=== PATIENT | male | born 1980 | race Caucasian/White ===

== ENCOUNTER 2016-05-02 01:02 | Inpatient (IN) | payer MEDICAID ==
[~2016-05-02] VITALS: Ht 172.7 cm; Wt 75.5 kg
[~2016-05-02 01:02] MED LIST: ASPI81TA3 PO; ATOR80TA75 PO; CARV12.579 PO
--- NOTE | 2016-05-02 02:32 | ERA ---
ER Documentation Chief Complaint Date/Time DATE: 05/02/16 TIME: 02:32 Chief Complaint cp started around 10pm,coughx4 days,sob,has a defib on L upper chest HPI The patient is a 36-year-old male, presenting to the ER because of left-sided chest pain that began about 10 PM, dyspnea for 1 day, dizziness for the last 3 days intermittently and intermittent cough for the last 4 days. He had similar chest pain and dizziness and dyspnea previously. He denies fever, chills, neck pain, chest pain with exertion or vomiting, diaphoresis. He denies abdominal pain, vomiting, diarrhea, dysuria. He smokes, denies drinking, has history of substance abuse Past medical history: Dyslipidemia, history of CHF with low EF of 15% Past surgical history: AICD, congenital heart disease repair ROS All systems reviewed and are negative except as per history of present illness. Medications Home Meds Reported Medications Carvedilol* (Carvedilol*) 12.5 Mg Tablet, 12.5 MG PO BID, #60 TAB 10/05/15 Atorvastatin* (Atorvastatin*) 80 Mg Tablet, 80 MG PO QHS, #30 TAB 10/05/15 Aspirin* (Aspirin* Chew) 81 Mg Tab.chew, 81 MG PO DAILY, TAB.CHEW 10/05/15 Allergies Allergies: Coded Allergies: No Known Allergy (Unverified , 10/05/15) PMhx/Soc History of Surgery: Yes (Difibulator placement (previous repor 2014), Open Heart Sx 1991) Anesthesia Reaction: No Hx Neurological Disorder: No Hx Respiratory Disorders: No Hx Cardiac Disorders: Yes ("hole in heart" CHF, Heart Difibulator) Hx Psychiatric Problems: No Hx Miscellaneous Medical Probl: Yes (Hemorrhoids) Hx Alcohol Use: No Hx Substance Use: Yes (per previous report Meth, Marijuana) Hx Tobacco Use: No Smoking Status: Never smoker Physical Exam Vitals Vital Signs Date Time Temp Pulse Resp B/P Pulse Ox O2 Delivery O2 Flow Rate FiO2 05/02/16 05:00 96.7 102 28 140/111 98 Room Air 4.0 05/02/16 02:56 99 4.0 05/02/16 02:53 104 22 99 Nasal Cannula 4.0 05/02/16 02:20 96.7 103 28 136/105 98 Room Air 05/02/16 01:04 96.7 104 28 126/88 96 Physical Exam Const: No acute distress. Head: Atraumatic. Eyes: Normal Conjunctiva. ENT: Normal External Ears, Nose and Mouth. Neck: Full range of motion. No meningismus. Resp: Minimal bilateral expiratory wheezes, scattered rhonchi Cardio: Regular rate and rhythm, no murmurs. Abd: Soft, non distended, normal bowel sounds, non tender. Skin: No petechiae or rashes. Back: No midline or flank tenderness. Ext: No cyanosis, or edema. Neur: Awake and alert. No focal deficit Psych: Normal Mood and Affect. Result Diagram: 05/02/1622405/02/16224 Results 24 hrs Laboratory Tests Test 05/02/16 02:25 05/02/16 05:20 05/02/16 05:24 Activated Partial Thromboplast Time 32.3Sec Alanine Aminotransferase (ALT/SGPT) 80IU/L Albumin 3.3g/dl Albumin/Globulin Ratio 1.00 Alkaline Phosphatase 107IU/L Anion Gap 16 Aspartate Amino Transf (AST/SGOT) 72IU/L B-Type Natriuretic Peptide 5850PG/ML Basophils # 0.110^3/ul Basophils % 0.8% Blood Morphology Comment Blood Urea Nitrogen 31mg/dl Calcium Level 9.6mg/dl Carbon Dioxide Level 26mmol/L Chloride Level 106mmol/L Creatinine 0.97mg/dl Direct Bilirubin 0.00mg/dl Eosinophils # 0.210^3/ul Eosinophils % 2.0% Ethyl Alcohol Level < 10.0mg/dl Globulin 3.30g/dl Glucose Level 78mg/dl Hematocrit 49.6% Hemoglobin 16.9g/dl INR International Normalized Ratio 1.01 Indirect Bilirubin 0.2mg/dl Lactic Acid Level 2.2mmol/L Lymphocytes # 3.010^3/ul Lymphocytes % 34.7% Mean Corpuscular Hemoglobin 30.8pg Mean Corpuscular Hemoglobin Concent 34.1g/dl Mean Corpuscular Volume 90.3fl Mean Platelet Volume 9.1fl Monocytes # 0.810^3/ul Monocytes % 8.9% Neutrophils # 4.710^3/ul Neutrophils % 53.6% Nucleated Red Blood Cells # 0.010^3/ul Nucleated Red Blood Cells % 0.0/100WBC Platelet Count 11003^3/UL Potassium Level 4.3mmol/L Prothrombin Time 13.3Sec Prothrombin Time Ratio 1.0 Red Blood Count 5.4910^6/ul Red Cell Distribution Width 14.9% Sodium Level 144mmol/L Total Bilirubin 0.2mg/dl Total Protein 6.6g/dl Troponin I 0.036ng/ml White Blood Count 8.710^3/ul Urine Bilirubin NEGATIVE Urine Clarity CLEAR Urine Color LT. YELLOW Urine Glucose NEGATIVE% Urine Hemoglobin 1+ Urine Ketones NEGATIVE Urine Leukocyte Esterase NEGATIVE Urine Microscopic RBC 2-5/HPF Urine Microscopic WBC 0-2/HPF Urine Mucus FEW Urine Nitrite NEGATIVE Urine Specific [place] 1.015 Urine Total Protein 1+ Urine Urobilinogen 0.2 E.U./dL Urine pH 6.0 Bedside Urine Blood 1+ Bedside Urine Glucose (UA) Negative Bedside Urine Ketones (LAB) Negative Bedside Urine Leukocyte Esterase (L Negative Bedside Urine Nitrite (LAB) Negative Bedside Urine Protein (LAB) 2+ Bedside Urine pH (LAB) 6.0 Current Medications Medications (Trade) Dose Ordered Sig/Gayle Route PRN Reason Start Time Stop Time Status Last Admin Dose Admin Levalbuterol (Xopenex Neb) 1.25 mg ONCE ONCE HHN 05/02/16 03:00 05/02/16 03:01 DC 05/02/16 02:50 Ipratropium [place] (Atrovent 0.02% (Neb)) 0.5 mg ONCE ONCE HHN 05/02/16 03:00 05/02/16 03:01 DC 05/02/16 02:49 Aspirin (Aspirin) 325 mg ONCE ONCE PO 05/02/16 03:00 05/02/16 03:01 DC 05/02/16 03:14 Nitroglycerin (Nitroglycerin 2% Oint) 1 inch ONCE ONCE TD 05/02/16 03:00 05/02/16 03:01 DC 05/02/16 03:14 Furosemide (Lasix) 40 mg ONCE ONCE IV 05/02/16 05:00 05/02/16 05:01 DC 05/02/16 04:47 IV Flush (NS 3 ml) 3 ml PER PROTOCOL IV 05/02/16 05:30 Lorazepam (Ativan) 0.5 mg Q6H PRN IV ANXIETY 05/02/16 05:30 Ondansetron HCl (Zofran Inj) 4 mg Q6H PRN IV NAUSEA AND/OR VOMITING 05/02/16 05:30 Aspirin (Aspirin) 81 mg DAILY PO 05/02/16 09:00 05/02/16 09:00 DC Furosemide (Lasix) 40 mg BID DIURETICS IV 05/02/16 18:00 Nitroglycerin (Nitroglycerin (Sl Tab) 0.4 Mg) 1 tab Q5M PRN SL CHEST PAIN 05/02/16 05:30 Acetaminophen (Tylenol Tab) 650 mg Q6H PRN PO PAIN LEVEL 1-3 OR FEVER 05/02/16 05:30 Morphine Sulfate (morphine) 2 mg Q4H PRN IV PAIN LEVEL 7-10 05/02/16 05:30 Docusate Sodium (Colace) 100 mg Q12H PRN PO CONSTIPATION 05/02/16 05:30 Famotidine (Pepcid) 20 mg Q12 PO 05/02/16 09:00 Enoxaparin Sodium (Lovenox) 40 mg DAILY SC 05/02/16 09:00 Aspirin (Aspirin) 81 mg DAILY PO 05/02/16 09:00 Atorvastatin Calcium (Lipitor) 80 mg QHS PO 05/02/16 21:00 UNV Carvedilol (Coreg) 12.5 mg BID PO 05/02/16 09:00 UNV Albuterol/ Ipratropium (Duoneb) 3 ml Q2H RESP THERAPY PRN HHN SHORTNESS OF BREATH 05/02/16 05:30 Procedures/MDM EKG: Read by emergency physician Rate/Rhythm: Sinus tachycardia 107 beats per min QRS, ST, T-waves: No ST elevation, no T wave inversion, right bundle branch block, left anterior fascicular block, LVH, lateral T-wave Impression: Abnormal EKG [place] [id number] Radiology Main Line: [phone] DIAGNOSTIC IMAGING REPORT 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 TECHNIQUE: A single frontal AP view of the chest was performed portably. The images were reviewed on a PACS workstation. COMPARISON: Chest x-ray January 15, 2016. FINDINGS: There is a left-sided AICD device. The patient has had a prior median sternotomy. The cardiomediastinal silhouette is moderately enlarged but without significant interval change. There is seau-rd-jwnclyof pulmonary vascular congestion. There is no evidence for focal consolidation. There is no evidence for pneumothorax. IMPRESSION: 1. Left-sided AICD device. 2. Status post median sternotomy. 3. Cardiomegaly. 4. Mzwt-cs-warzyofx pulmonary vascular congestion. .Ishan Uriarte MD, Date Time Electronically viewed and signed by .Ishan Uriarte MD, MD on 05/02/2016 05:22 .M/ CC: EKNIA MAYA MD MEDICAL MAKING DECISION: The patient is a 36-year-old male, presenting with acute CHF exacerbation, acute chest pain, acute elevated lactic acid level of unclear significance. I do not suspect severe sepsis; he does not have fever, nor leukocytosis; he has negative chest x-ray and negative urinalysis. Antibiotics were not given. He was treated with Xopenex 1.25 mg and Atrovent 0.5 mg for wheezing, aspirin 325 mg p.o. and 1 inch of nitroglycerin ointment to chest wall for acute chest pain and Lasix 40 mg IV for acute CHF with good response. The differential diagnoses for acute dyspnea considered include but are not limited to asthma, COPD, pneumonia, pulmonary embolus, pleural effusion , congestive heart failure. The differential diagnoses for acute chest considered include but are not limited to acute coronary syndrome, acute myocardial infarction, pericarditis, pulmonary embolism, aortic dissection, pneumonia, pleural effusion, pneumothorax, GERD, chest wall pain. Departure Diagnosis: Primary Impression: CHF (congestive heart failure) Additional Impressions: Chest pain Transaminitis SIRS (systemic inflammatory response syndrome) Condition: Stable Comments I discussed the findings with the patient. I discussed the patient with the on- call hospitalist Dr. Christensen. who was made aware of the lab, the treatment, the patient condition. The patient is admitted to telemetry at 4:50 AM KENIA MAYA MD May 02, 2016 02:32
[2016-05-02] MEDS ORDERED: ASPIRIN 325 MG TAB PO ONE (03:00)
[2016-05-02] MEDS ORDERED: IPRATROPIUM (NEB) 0.5 MG/2.5 ML AMP HHN ONE (03:00)
[2016-05-02] MEDS ORDERED: NITROGLYCERIN 2% 1 GM OINT PKT TD ONE (03:00)
[2016-05-02] MEDS ORDERED: LEVALBUTEROL (NEB) 1.25 MG/0.5 ML AMP HHN ONE (03:00)
[2016-05-02 04:01] LABS: BASOPHIL # 0.1 10^3/ul (0.0-0.1); BASOPHILS % 0.8 % (0.0-2.0); EOSINOPHILS # 0.2 10^3/ul (0.0-0.5); HEMATOCRIT 49.6 % (42.0-52.0); HEMOGLOBIN 16.9 g/dl (14.0-18.0); LYMPHOCYTES % 34.7 % (15.0-51.0); MEAN CORPUSCULAR HEMOGLOBIN 30.8 pg (29.0-33.0); MEAN CORPUSCULAR HGB CONC 34.1 g/dl (32.0-37.0); MEAN CORPUSCULAR VOLUME 90.3 fl (82.0-101.0); MEAN PLATELET VOLUME 9.1 fl (7.4-10.4); MONOCYTE # 0.8 10^3/ul (0.3-0.9); MONOCYTES % 8.9 % (0.0-11.0); NEUTROPHIL # 4.7 10^3/ul (1.6-7.5); NEUTROPHILS % 53.6 % (39.0-77.0); PLATELET COUNT 229 10^3/UL (140-440); RED BLOOD COUNT 5.49 10^6/ul (4.70-6.10); RED CELL DISTRIBUTION WIDTH 14.9 % (11.5-14.5); UNCORRECTED WBC 8.7 10^3/ul (4.8-10.8); WHITE BLOOD COUNT 8.7 10^3/ul (4.8-10.8)
[2016-05-02 04:07] LABS: CONDITION 1; LH ANALYZER COMMENTS 1
[2016-05-02 04:09] LABS: INR 1.01; PROTIME 13.3 Sec (12.2-14.2)
[2016-05-02 04:10] LABS: PARTIAL THROMBOPLASTIN TIME 32.3 Sec (25.0-35.0)
[2016-05-02 04:15] LABS: ALBUMIN 3.3 g/dl (3.3-4.9); CHLORIDE 106 mmol/L (97-110); SODIUM 144 mmol/L (135-144)
[2016-05-02 04:16] LABS: POTASSIUM 4.3 mmol/L (3.5-5.1)
[2016-05-02 04:17] LABS: CREATININE 0.97 mg/dl (0.61-1.24)
[2016-05-02 04:18] LABS: ALANINE AMINOTRANSFERASE 80 IU/L (13-69); ALKALINE PHOSPHATASE 107 IU/L (42-121); ANION GAP 16 (8-16); ASPARTATE AMINO TRANSFERASE 72 IU/L (15-46); BILIRUBIN,INDIRECT 0.2 mg/dl (0-1.1); BILIRUBIN,TOTAL 0.2 mg/dl (0.2-1.3); BLOOD UREA NITROGEN 31 mg/dl (7-20); CALCIUM 9.6 mg/dl (8.4-10.2); CARBON DIOXIDE 26 mmol/L (21-31); GLUCOSE 78 mg/dl (70-220); TOTAL PROTEIN 6.6 g/dl (6.1-8.1)
[2016-05-02 04:26] LABS: B-TYPE NATRIURETIC PEPTIDE 5850 PG/ML (0-125)
[2016-05-02 04:30] LABS: TROPONIN-I 0.036 ng/ml (0.00-0.12)
[2016-05-02 04:36] LABS: ETHANOL < 10.0 mg/dl
[2016-05-02] MEDS ORDERED: FUROSEMIDE 40 MG INJ IV ONE (05:00)
--- NOTE | 2016-05-02 05:20 | HP ---
Date/Time of Note Date/Time of Note DATE: 05/02/16 TIME: 05:09 Assessment/Plan VTE Prophylaxis VTE Prophylaxis Intervention: LMWH Assessment/Plan Assessment/Plan 36 yo male with a known history of Methamphetamine drug abuse, Cardiomyopathy with low EF 15% s/p AICD who complains of chest pain and shortness of breath 2 days duration. 1. Shortness of breath/Chest pain - 2/2 to CHF exac with ACS component - will admit the patient to telemetry, cycle cardiac markers, consult cardio, check TSH /Mag levels, fall precautions, obtain 2D-ECHO, diuresis, strict I/O's, continue with coreg/BB/aspirin/statin - ?add spironolactone - defer to cardio 2. CHF exacerbation - acute on chronic both diastolic and systolic dysfunction with severe cardiomyopathy - see #1 3. Transaminitis - 2/2 RHF - monitor trend 4. GI ppx - pepcid 5. DVT ppx - lovenox answered all of his questions. as per clinical course. this history and physical took greater then 45 minutes to complete HPI/ROS Admit Date/Time Admit Date/Time 05/02/2016, 5:10 am Hx of Present Illness 36 yo male with a known history of Methamphetamine drug abuse, Cardiomyopathy with low EF 15% s/p AICD who complains of chest pain and shortness of breath 2 days duration. 2 days ago, he admits to using methamphetamine, and since then he has been having substernal chest pain. The pain is non-radiating, worsening in nature, 10/10 in intensity, pressure like, no alleviating factors, associated with shortness of breath. He also complains of dizziness, headaches, fevers/chills, and generalized malaise, with nausea and vomiting 2 episodes NBNB in nature. Denies any loss of consciousness, urinary/bowel irregularities, constipation/diarrhea or other constitutional symptoms. ED course: lasix, aspirin and breathing treatments ECHO: 05/24/2015 Conclusions 1. Moderate concentric left ventricular hypertrophy. Mild enlargement of left ventricle cavity. Severe global left ventricular systolic dysfunction. Ejection fraction is visually estimated at 15 %. Tissue Doppler/Mitral Doppler indices are consistent with restrictive physiology with markedly elevated left atrial pressure (Stage III-IV diastolic dysfunction). 2. Mitral valve leaflets appear mildly thickened. Mild mitral annular calcification. Mild mitral valve regurgitation. 3. Calcified Aortic cusps appear mildly calcified. No aortic regurgitation. 4. Normal appearance and function of the tricuspid valve with trace physiologic regurgitation. Normal right ventricular systolic pressure. Estimated peak PA systolic pressure 18 mmHg. ROS 14 point review of systems completed, please refer to HPI for any positive findings PMH/Family/Social Past Medical History Medical History: congestive heart failure, coronary artery disease, hypertension Past Surgical History s/p AICD Past Surgical Hx: other Family History Significant Family History: no pertinent family hx Social History Alcohol Use: none Smoking Status: Never smoker Drug Use: other (methamphetamine) Exam/Review of Systems Vital Signs Vitals Vital Signs Date Time Temp Pulse Resp B/P Pulse Ox O2 Delivery O2 Flow Rate FiO2 05/02/16 02:56 99 4.0 05/02/16 02:53 104 22 Nasal Cannula 05/02/16 02:20 96.7 136/105 Exam Exam Gen Mariam: moderate respiratory distress, AAOx4 HEENT: NC/AT, PERRLA, EOMI, no pharyngeal erythema, no tonsillar exudates, no lymphadenopathy, no JVD, no carotid bruits NECK: supple, no thyromegaly THORAX: symmetrical, no obvious deformities CV: S1S2, tachycardiac, no M/G/R Lungs: coarse breath sounds throughout all lungs bhatia, with end expiratory wheezing, and bibasilar crackles, increased work of breathing Abd: soft, NT/ND, +BS, no rebound, no guarding, neg HSM EXT: trace lower extremity edema, no ecchymosis, + clubbing, FROM Neuro: CN II-XII grossly intact, no focal deficits Psych: anxious Skin: cool and clammy Labs Result Diagram: 05/02/1622405/02/16224 GABBY YUNG MD May 02, 2016 05:20
--- NOTE | 2016-05-02 05:23 | RADRPT ---
PROCEDURE: CHEST - 1 VIEW CLINICAL INDICATION: 36-year-old male with shortness of breath. TECHNIQUE: A single frontal AP view of the chest was performed portably. The images were reviewed on a PACS workstation. COMPARISON: Chest x-ray January 15, 2016. FINDINGS: There is a left-sided AICD device. The patient has had a prior median sternotomy. The cardiomedias tinal silhouette is moderately enlarged but without significant interval change. There is mild-to-m oderate pulmonary vascular congestion. There is no evidence for focal consolidation. There is no tia dence for pneumothorax. IMPRESSION: 1. Left-sided AICD device. 2. Status post median sternotomy. 3. Cardiomegaly. 4. Gaxl-nb-kubtxdif pulmonary vascular congestion. .Ishan Uriarte MD, Date Time Electronically viewed and signed by .Ishan Uriarte MD, on 05/02/2016 05:22 .M/
[2016-05-02 05:25] LABS: URINE BLOOD (Dip) POC 1+ (NEGATIVE)
[2016-05-02] MEDS ORDERED: NITROGLYCERIN (SL) 0.4 MG TAB SL PRN (05:30)
[2016-05-02] MEDS ORDERED: ACETAMINOPHEN 325 MG TAB PO PRN (05:30)
[2016-05-02] MEDS ORDERED: NACL 0.9% 3 ML SYG IV SCH (05:30)
[2016-05-02] MEDS ORDERED: ONDANSETRON 4 MG INJ IV PRN (05:30)
[2016-05-02] MEDS ORDERED: DOCUSATE SODIUM 100 MG CAP PO PRN (05:30)
[2016-05-02] MEDS ORDERED: morphine 2 MG INJ IV PRN (05:30)
[2016-05-02 05:36] LABS: ADD UMIC YES; URINE BILIRUBIN (Dip) NEGATIVE (NEGATIVE); URINE BLOOD (Dip) 1+ (NEGATIVE); URINE COLOR LT. YELLOW (YELLOW); URINE GLUCOSE (Dip) NEGATIVE (NEGATIVE); URINE KETONES (Dip) NEGATIVE (NEGATIVE); URINE LEUKOCYTE ESTERASE (Dip) NEGATIVE (NEGATIVE); URINE NITRITE (Dip) NEGATIVE (NEGATIVE); URINE TOTAL PROTEIN (Dip) 1+ (NEGATIVE); URINE UROBILINOGEN (Dip) 0.2 E.U./dL (0.1-1.0)
[2016-05-02 05:49] LABS: MUCUS,URINE FEW
[2016-05-02 06:30] LABS: MAGNESIUM 1.5 mg/dl (1.7-2.5)
[2016-05-02 06:31] LABS: CHOL/HDL RATIO 3.8 RATIO
[2016-05-02 06:39] LABS: CK-MB 1.61 ng/ml (0.0-2.4); TROPONIN-I 0.031 ng/ml (0.00-0.12)
[2016-05-02 07:00] LABS: THYROID STIMULATING HORMONE 7.7 MIU/L (0.465-4.680)
[2016-05-02] MEDS: ASPIRIN 81 MG TAB PO SCH (08:52)
[2016-05-02] MEDS: ENOXAPARIN 40 MG/0.4 ML SYG SC SCH (08:52)
[2016-05-02] MEDS: FAMOTIDINE 20 MG TAB PO SCH ×2 (08:52→22:04)
[2016-05-02] MEDS ORDERED: ASPIRIN 81 MG TAB PO SCH (09:00)
[2016-05-02] MEDS: FUROSEMIDE 40 MG INJ IV SCH (09:02)
[2016-05-02 09:04] LABS: BARBITURATES NEGATIVE (NEGATIVE); BENZODIAZEPINES NEGATIVE (NEGATIVE); CANNABINOIDS POSITIVE (NEGATIVE); COCAINE NEGATIVE (NEGATIVE); OPIATES NEGATIVE (NEGATIVE)
[2016-05-02 12:11] LABS: TROPONIN-I 0.026 ng/ml (0.00-0.12)
[2016-05-02 12:30] LABS: CK-MB 1.61 ng/ml (0.0-2.4)
[2016-05-02] MEDS: ALBUTEROL/IPRATROPIUM (NEB) 3 ML AMP HHN PRN (17:01)
[2016-05-02 17:30] VITALS: TEMP 98.3
[2016-05-02 17:45] VITALS: BP 127/89; PULSE 103; RESP 18; Ht 172.7 cm; Wt 75.5 kg
[2016-05-02 20:00] VITALS: BP 105/70; RESP 15
[2016-05-02 20:36] VITALS: PULSE 105
[2016-05-02] MEDS: ATORVASTATIN 80 MG TAB PO SCH (22:04)
[2016-05-02] MEDS: LORAZEPAM 2 MG INJ IV PRN (22:10)
[2016-05-03] VITALS (12 sets, daily range): BP systolic 92–120; BP diastolic 63–82; PULSE 90–111; RESP 15–20
[2016-05-03] MEDS: ALBUTEROL/IPRATROPIUM (NEB) 3 ML AMP HHN PRN (00:49)
[2016-05-03 05:58] LABS: POTASSIUM 3.8 mmol/L (3.5-5.1)
[2016-05-03 06:00] LABS: BASOPHIL # 0.1 10^3/ul (0.0-0.1); BASOPHILS % 0.6 % (0.0-2.0); EOSINOPHILS # 0.1 10^3/ul (0.0-0.5); EOSINOPHILS % 0.8 % (0.0-7.0); HEMATOCRIT 52.6 % (42.0-52.0); HEMOGLOBIN 17.7 g/dl (14.0-18.0); LYMPHOCYTES # 2.7 10^3/ul (0.8-2.9); LYMPHOCYTES % 22.5 % (15.0-51.0); MEAN CORPUSCULAR HEMOGLOBIN 30.4 pg (29.0-33.0); MEAN CORPUSCULAR HGB CONC 33.6 g/dl (32.0-37.0); MEAN CORPUSCULAR VOLUME 90.5 fl (82.0-101.0); MEAN PLATELET VOLUME 8.9 fl (7.4-10.4); MONOCYTE # 0.7 10^3/ul (0.3-0.9); MONOCYTES % 5.5 % (0.0-11.0); NEUTROPHIL # 8.4 10^3/ul (1.6-7.5); NEUTROPHILS % 70.6 % (39.0-77.0); PLATELET COUNT 216 10^3/UL (140-440); RED BLOOD COUNT 5.82 10^6/ul (4.70-6.10); RED CELL DISTRIBUTION WIDTH 14.1 % (11.5-14.5); UNCORRECTED WBC 11.9 10^3/ul (4.8-10.8); WHITE BLOOD COUNT 11.9 10^3/ul (4.8-10.8)
[2016-05-03 06:01] LABS: CALCIUM 9.2 mg/dl (8.4-10.2); CREATININE 0.87 mg/dl (0.61-1.24)
[2016-05-03] MEDS: FUROSEMIDE 40 MG INJ IV SCH ×2 (06:34→17:25)
[2016-05-03 06:52] LABS: CONDITION 1
--- NOTE | 2016-05-03 08:23 | PN ---
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 There does not appear to be any evidence of an acute coronary syndrome at this admission. However he is beta blocked which is appropriate and in the past for his heart failure related attempted to used amparo inhibitors which even lisinopril 5 mg they cause hypotension. We will try and go around this by continuing the beta blockade using isosorbide mononitrate and hydralazine (2) CHF (congestive heart failure) Status: Acute Comment: Patient's and significant heart failure at this time with an audible S3. Continue diuresis. As he is unable to tolerate the AMPARO inhibitors based on prior notes in the chart is from prior admissions his isosorbide mononitrate with hydralazine along with his carvedilol. In addition Spironolactone to help with the volume status. At this time he is improving but is not near ready for discharge Qualifiers: Congestive heart failure type: systolic Congestive heart failure chronicity : acute on chronic Qualified Code: I50.23 - Acute on chronic systolic congestive heart failure (3) Shortness of breath Status: Acute Comment: Due to CHF Assessment/Plan Continued crystal meth abuse.-We will try and refer him once again for rehab although this is been done a number of times in the past. We can remain hopeful Subjective 24 Hr Interval Summary Free Text/Dictation Patient complains of shortness of breath Constitutional: no complaints Respiratory: shortness of breath Cardiovascular: orthopenea, paroxysmal nocturnal dyspnea Gastrointestinal: no complaints Genitourinary: no complaints Exam/Review of Systems Vital Signs Vitals Vital Signs Date Time Temp Pulse Resp B/P Pulse Ox O2 Delivery O2 Flow Rate FiO2 05/03/16 07:28 97.9 100 19 119/75 98 05/03/16 04:00 Nasal Cannula 3.0 Intake and Output 05/02/16 05/02/16 05/03/16 15:00 23:00 07:00 Intake Total 500 ml 400 ml Output Total 1150 ml 700 ml 850 ml Balance -1150 ml -200 ml -450 ml Exam Patient reports PND and orthopnea over Constitutional: alert, oriented Neck: non-tender, supple Respiratory: clear to auscultation, normal air movement Cardiovascular: S3, regular rate and rhythm Gastrointestinal: nl liver, spleen, non-tender, soft Results Result Diagram: 05/03/1620 05/03/16 0520 Results 24 hrs Laboratory Tests Test 05/02/16 09:26 05/02/16 11:26 05/03/16 05:20 Lactic Acid Level 1.1 Creatine Kinase 37 Creatine Kinase Index 4.4 Creatinine Kinase MB (Mass) 1.61 Troponin I 0.026 Anion Gap 16 Basophils # 0.1 Basophils % 0.6 Blood Urea Nitrogen 31 H Calcium Level 9.2 Carbon Dioxide Level 26 Chloride Level 100 Creatinine 0.87 Eosinophils # 0.1 Eosinophils % 0.8 Glucose Level 105 Hematocrit 52.6 H Hemoglobin 17.7 Lymphocytes # 2.7 Lymphocytes % 22.5 Mean Corpuscular Hemoglobin 30.4 Mean Corpuscular Hemoglobin Concent 33.6 Mean Corpuscular Volume 90.5 Mean Platelet Volume 8.9 Monocytes # 0.7 Monocytes % 5.5 Neutrophils # 8.4 H Neutrophils % 70.6 Nucleated Red Blood Cells # 0.0 Nucleated Red Blood Cells % 0.0 Platelet Count 216 Potassium Level 3.8 Red Blood Count 5.82 Red Cell Distribution Width 14.1 Sodium Level 138 White Blood Count 11.9 #H Medications Medications Current Medications Lorazepam (Ativan) 0.5 mg Q6H PRN IV ANXIETY Last administered on 05/02/16t 22: 10; Admin Dose 0.5 MG; Start 05/02/16 at 05:30 Ondansetron HCl (Zofran Inj) 4 mg Q6H PRN IV NAUSEA AND/OR VOMITING; Start at 05:30 Nitroglycerin (Nitroglycerin (Sl Tab) 0.4 Mg) 1 tab Q5M PRN SL CHEST PAIN; Start 05/02/16 at 05:30 Acetaminophen (Tylenol Tab) 650 mg Q6H PRN PO PAIN LEVEL 1-3 OR FEVER; Start at 05:30 Morphine Sulfate (morphine) 2 mg Q4H PRN IV PAIN LEVEL 7-10; Start 05/02/16 at 05:30 Docusate Sodium (Colace) 100 mg Q12H PRN PO CONSTIPATION; Start 05/02/16 at 05: 30 Famotidine (Pepcid) 20 mg Q12 PO Last administered on 05/02/16 22:04; Admin Dose 20 MG; Start 05/02/16 at 09:00 Enoxaparin Sodium (Lovenox) 40 mg DAILY SC Last administered on 05/02/16 08:52 ; Admin Dose 40 MG; Start 05/02/16 at 09:00 Aspirin (Aspirin) 81 mg DAILY PO Last administered on 05/02/16 08:52; Admin Dose 81 MG; Start 05/02/16 at 09:00 Atorvastatin Calcium (Lipitor) 80 mg QHS PO Last administered on 05/02/16 22: 04; Admin Dose 80 MG; Start 05/02/16 at 21:00 Carvedilol (Coreg) 12.5 mg BID PO Last administered on 05/02/16 22:04; Admin Dose 12.5 MG; Start 05/02/16 at 09:00 Influenza Virus Vaccine (Fluzone) 0.5 ml ONCE ONCE IM* ; Start 05/03/16 at 09:00 ; Stop 05/03/16 at 09:01 RITA FERGUSON MD May 03, 2016 08:23
[2016-05-03] MEDS: SPIRONOLACTONE 25 MG TAB PO SCH (08:56)
[2016-05-03] MEDS: ASPIRIN 81 MG TAB PO SCH (08:57)
[2016-05-03] MEDS: FAMOTIDINE 20 MG TAB PO SCH ×2 (08:57→20:33)
[2016-05-03] MEDS: ENOXAPARIN 40 MG/0.4 ML SYG SC SCH (08:58)
[2016-05-03] MEDS ORDERED: INFLUENZA VIRUS VACCINE 0.5 ML SYG IM* ONE (09:00)
[2016-05-03] MEDS: ISOSORBIDE MONONITRATE 20 MG TAB PO SCH (12:49)
[2016-05-03] MEDS: LORAZEPAM 2 MG INJ IV PRN (20:32)
[2016-05-03] MEDS: ATORVASTATIN 80 MG TAB PO SCH (20:32)
[2016-05-03] MEDS: DIPHENHYDRAMINE 25 MG CAP PO PRN (23:31)
[2016-05-04] VITALS (13 sets, daily range): BP systolic 109–121; BP diastolic 59–80; PULSE 87–100; RESP 16–20
[2016-05-04] MEDS: FUROSEMIDE 40 MG INJ IV SCH ×2 (06:02→17:36)
[2016-05-04 06:36] LABS: POTASSIUM 3.4 mmol/L (3.5-5.1)
[2016-05-04 06:39] LABS: CREATININE 0.93 mg/dl (0.61-1.24)
[2016-05-04 06:41] LABS: BASOPHILS % 0.4 % (0.0-2.0); EOSINOPHILS # 0.3 10^3/ul (0.0-0.5); EOSINOPHILS % 2.5 % (0.0-7.0); HEMATOCRIT 52.4 % (42.0-52.0); HEMOGLOBIN 17.5 g/dl (14.0-18.0); LYMPHOCYTES # 2.7 10^3/ul (0.8-2.9); LYMPHOCYTES % 26.3 % (15.0-51.0); MEAN CORPUSCULAR HEMOGLOBIN 30.4 pg (29.0-33.0); MEAN CORPUSCULAR HGB CONC 33.3 g/dl (32.0-37.0); MEAN CORPUSCULAR VOLUME 91.1 fl (82.0-101.0); MEAN PLATELET VOLUME 9.1 fl (7.4-10.4); MONOCYTE # 0.9 10^3/ul (0.3-0.9); MONOCYTES % 9.1 % (0.0-11.0); NEUTROPHIL # 6.2 10^3/ul (1.6-7.5); NEUTROPHILS % 61.7 % (39.0-77.0); PLATELET COUNT 219 10^3/UL (140-440); RED BLOOD COUNT 5.75 10^6/ul (4.70-6.10); UNCORRECTED WBC 10.1 10^3/ul (4.8-10.8); WHITE BLOOD COUNT 10.1 10^3/ul (4.8-10.8)
[2016-05-04 06:48] LABS: CONDITION 1
[2016-05-04] MEDS: SPIRONOLACTONE 25 MG TAB PO SCH (08:18)
[2016-05-04] MEDS: ISOSORBIDE MONONITRATE 20 MG TAB PO SCH (08:18)
[2016-05-04] MEDS: ASPIRIN 81 MG TAB PO SCH (08:19)
[2016-05-04] MEDS: FAMOTIDINE 20 MG TAB PO SCH ×2 (08:20→20:32)
[2016-05-04] MEDS: ENOXAPARIN 40 MG/0.4 ML SYG SC SCH (08:21)
--- NOTE | 2016-05-04 13:33 | PN ---
Date/Time of Note Date/Time of Note DATE: 05/04/16 TIME: 13:24 Assessment/Plan VTE Prophylaxis VTE Prophylaxis Intervention: LMWH Lines/Catheters IV [facility] Saline [facility] Assessment/Plan Assessment/Plan 36 yo male with a known history of Methamphetamine drug abuse, Cardiomyopathy with low EF 15% s/p AICD who complains of chest pain and shortness of breath 2 days duration. 1. Acute on chronic congestive heart failure, systolic, better today, follow up with cardiology 2. Chest pain, resolved today, follow up with cardiology 3. Polysubstance abuse, advise to quit 4. Transaminitis - 2/2 RHF - monitor trend 5. GI ppx - pepcid 6. DVT ppx - lovenox Subjective 24 Hr Interval Summary Free Text/Dictation less shortness of breath, no chest pain today Exam/Review of Systems Vital Signs Vitals Vital Signs Date Time Temp Pulse Resp B/P Pulse Ox O2 Delivery O2 Flow Rate FiO2 05/04/16 12:10 87 05/04/16 11:42 97.6 16 109/62 100 05/04/16 01:39 2.0 05/04/16 00:00 Nasal Cannula Intake and Output 05/03/16 05/03/16 05/04/16 15:00 23:00 07:00 Intake Total 820 ml 700 ml Output Total 900 ml 2900 ml 750 ml Balance -900 ml -2080 ml -50 ml Exam Constitutional: alert, oriented, well developed Head: atraumatic, normocephalic Eyes: EOMI, PERRL, nl conjunctiva, nl lids, nl sclera ENMT: mucosa pink and moist, nl external ears & nose, nl lips & teeth, nl nasal mucosa & septum Neck: non-tender, supple Respiratory: clear to auscultation, normal air movement Cardiovascular: nl pulses, regular rate and rhythm Gastrointestinal: nl liver, spleen, non-tender, soft, No ascites, No bowel sounds, No distended, No firm, No hepatomegaly, No mass , No rebound or guarding, No splenomegaly, No surgical scars, No tender Extremities: normal pulses, No calf tenderness, No clubbing, No cyanosis, No edema, No palpable cord, No pitting pedal edema, No tenderness Neurological: HOST/HOSTESS [employer]ANT II-XII intact, nl mental status, nl speech, nl strength Skin: nl turgor, rash or lesions Lymph: nl lymph nodes Results Result Diagram: 05/04/16 0545 05/04/16 0545 Results 24 hrs Laboratory Tests Test 05/04/16 05:45 Anion Gap 12 Basophils # 0.0 Basophils % 0.4 Blood Urea Nitrogen 39 H Calcium Level 9.0 Carbon Dioxide Level 30 Chloride Level 100 Creatinine 0.93 Eosinophils # 0.3 Eosinophils % 2.5 Glucose Level 97 Hematocrit 52.4 H Hemoglobin 17.5 Lymphocytes # 2.7 Lymphocytes % 26.3 Mean Corpuscular Hemoglobin 30.4 Mean Corpuscular Hemoglobin Concent 33.3 Mean Corpuscular Volume 91.1 Mean Platelet Volume 9.1 Monocytes # 0.9 Monocytes % 9.1 Neutrophils # 6.2 Neutrophils % 61.7 Nucleated Red Blood Cells # 0.0 Nucleated Red Blood Cells % 0.0 Platelet Count 219 Potassium Level 3.4 L Red Blood Count 5.75 Red Cell Distribution Width 14.0 Sodium Level 139 White Blood Count 10.1 Medications Medications Current Medications Lorazepam (Ativan) 0.5 mg Q6H PRN IV ANXIETY Last administered on 05/03/16 20: 32; Admin Dose 0.5 MG; Start 05/02/16 at 05:30 Ondansetron HCl (Zofran Inj) 4 mg Q6H PRN IV NAUSEA AND/OR VOMITING; Start at 05:30 Nitroglycerin (Nitroglycerin (Sl Tab) 0.4 Mg) 1 tab Q5M PRN SL CHEST PAIN; Start 05/02/16 at 05:30 Acetaminophen (Tylenol Tab) 650 mg Q6H PRN PO PAIN LEVEL 1-3 OR FEVER; Start at 05:30 Morphine Sulfate (morphine) 2 mg Q4H PRN IV PAIN LEVEL 7-10; Start 05/02/16 at 05:30 Docusate Sodium (Colace) 100 mg Q12H PRN PO CONSTIPATION; Start 05/02/16 at 05: 30 Famotidine (Pepcid) 20 mg Q12 PO Last administered on 05/04/16 08:20; Admin Dose 20 MG; Start 05/02/16 at 09:00 Enoxaparin Sodium (Lovenox) 40 mg DAILY SC Last administered on 05/04/16 08:21 ; Admin Dose 40 MG; Start 05/02/16 at 09:00 Aspirin (Aspirin) 81 mg DAILY PO Last administered on 05/04/16 08:19; Admin Dose 81 MG; Start 05/02/16 at 09:00 Atorvastatin Calcium (Lipitor) 80 mg QHS PO Last administered on 05/03/16 20: 32; Admin Dose 80 MG; Start 05/02/16 at 21:00 Carvedilol (Coreg) 12.5 mg BID PO Last administered on 05/04/16 08:19; Admin Dose 12.5 MG; Start 05/02/16 at 09:00 Spironolactone (Aldactone) 25 mg DAILY PO Last administered on 05/04/16 08:18 ; Admin Dose 25 MG; Start 05/03/16 at 09:00 Hydralazine HCl (Apresoline) 10 mg Q8H PO Last administered on 05/04/16 08:20 ; Admin Dose 10 MG; Start 05/03/16 at 08:30 Isosorbide Mononitrate (Ismo) 20 mg DAILY PO Last administered on 05/04/16 08: 18; Admin Dose 20 MG; Start 05/03/16 at 09:00 Diphenhydramine HCl (Benadryl) 25 mg HS PRN PO SLEEP Last administered on 23:31; Admin Dose 25 MG; Start 05/03/16 at 23:00 MARINA DELGADO MD May 04, 2016 13:32
--- NOTE | 2016-05-04 17:30 | RADRPT ---
Echocardiogram Report Patient Name: MASTER BRUMFIELD Gender: Male Date: 1980 Study Date: 02-May-2016 Copy Cutter: Coleen [facility] Location: [facility] Ref. Physician: GABBY YUNG Quality: Adequate Procedures: Transthoracic echocardiogram with complete 2D, M-Mode, and doppler examination. Indications: Cerebrovascular Accident. 2D/M Mode Doppler Measurement Value Normal Ranges Measurement Value Normal Ranges LVIDd 2D 5.7 3.5 - 5.6 cm AV Peak Fitz 0.5 m/sec LVIDs 2D 5.2 2.1 - 4.1 cm AV Peak PG 1.0 mmHg FS 2D 8.9 % AI Peak PG 8.0 mmHg LVPWd 2D 1.3 0.6 - 1.1 cm AI Peak Fitz 1.4 m/sec IVSd 2D 1.3 0.6 - 1.1 cm AI PHT 228.0 msec IVS/LVPW 2D 1.0 LVOT Peak Fitz 0.4 m/sec AoR Diam 2D 3.6 2.0 - 3.7 cm LVOT Peak PG 1.0 mmHg LA/Ao 2D 1 0 - 1 MV E Peak Fitz 1.1 m/sec EDV 2D 180.0 cm3 TR Peak Fitz 3.5 m/sec ESV 2D 137.0 cm3 TR Peak PG 48.0 mmHg LA Dimen 2D 5.0 2.3 - 4.0 cm Findings Left Ventricle: Normal left ventricular cavity size. Left ventricular wall thickness upper limits of normal. Severe global left ventricular systolic dysfunction. Ejection fraction is visually estimated at 20 %. Tissue Doppler/Mitral Doppler indices are consistent with restrictive physiology with markedly elevated left atrial pressure (Stage IIIIV diastolic dysfunction). Right Ventricle: Mild enlargement of right ventricle. Mild right ventricular hypokinesis. Pacemaker right heart. Left Atrium: There is moderate enlargement of left atrium. Right Atrium: There is mild enlargement of right atrium. Mitral Valve: Mitral valve leaflets appear mildly thickened. Mild to moderate mitral valve regurgitation. Aortic Valve: Normal trileaflet aortic valve structure. Mild aortic valve regurgitation. Tricuspid Valve: Estimated peak PA systolic pressure 63 mmHg. Tricuspid valve appears mildly thickened. There is mild tricuspid regurgitation. Pulmonic Valve: There is mild pulmonic regurgitation. Pericardium: Normal pericardium with no significant pericardial effusion. Left pleural effusion seen. Aorta: Normal aortic root. IVC: Dilated inferior vena cava with poor inspiratory collapse consistent with elevated right atrial pressures. Conclusions 1.The left ventricle is normal in size with severely reduced systolic function. There is global hypokinesis. 2.Estimated left ventricular ejection fraction of 20%. 3.Mild to moderate mitral regurgitation. 4.Moderate left atrial and mild right atrial enlargement. 5.Pulmonary hypertension with estimated RVSP of 63 mmHg. Electronically Signed By: Bry Fortune 04-May-2016 17:29:02 -0800 Patient Name: MASTER BRUMFIELD Study Date: 02-May-[id number]
--- NOTE | 2016-05-04 18:24 | CONS ---
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 History of congenital heart disease, status post cardiac surgery during childhood - details unknown Methamphetamine abuse Medication noncompliance Recommendations: -echocardiogram reviewed -change Lasix from IV to PO at 40mg daily -continue spironolactone 25mg daily -continue carvedilol 12.5mg BID -discontinue hydralazine and Imdur, start on lisinopril 5mg daily and up titrate as tolerated -continue aspirin 81mg and atorvastatin 80mg daily -patient counselled on medication compliance and abstinence from illicit substances Problems: Consultation Date/Type/Reason Admit Date/Time 05/02/2016, 5:10 am Type of Consultation: Cardiology Reason for Consultation congestive heart failure Referring Provider: GABBY YUNG MD Hx of Present Illness The patient is a 36 year-old male with chronic systolic heart failure who presented with a two day history of shortness of breath, orthopnea, and chest pain. He reports having ran out of his medications including Lasix for two weeks because he did not get a refill from his providers at [facility]. He had also been using methamphetamine. 14 point review of systems negative other than per HPI. 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 History of congenital heart disease, status post cardiac surgery during childhood - details unknown Social History Alcohol Use: none Smoking Status: Former smoker (last use one month ago) Drug Use: other (methamphetamine) Exam/Review of Systems Vital Signs Vitals Vital Signs Date Time Temp Pulse Resp B/P Pulse Ox O2 Delivery O2 Flow Rate FiO2 05/04/16 16:45 98.0 82 18 121/65 98 05/04/16 15:34 2.0 05/04/16 00:00 Nasal Cannula Intake and Output 05/03/16 05/03/16 05/04/16 15:00 23:00 07:00 Intake Total 820 ml 700 ml Output Total 900 ml 2900 ml 750 ml Balance -900 ml -2080 ml -50 ml Exam Constitutional: alert, oriented Psych: nl mood/affect, no complaints Head: atraumatic, normocephalic Eyes: nl conjunctiva, nl lids ENMT: nl external ears & nose, nl nasal mucosa & septum Neck: non-tender, supple, No jvd Respiratory: clear to auscultation, normal air movement Cardiovascular: regular rate and rhythm Gastrointestinal: non-tender, soft Musculoskeletal: nl extremities to inspection Extremities: No clubbing, No cyanosis, No edema Neurological: nl mental status, nl speech Results Result Diagram: 05/04/16 0545 05/04/16 0545 Results 24 hrs Laboratory Tests Test 05/04/16 05:45 Anion Gap 12 Basophils # 0.0 Basophils % 0.4 Blood Urea Nitrogen 39 H Calcium Level 9.0 Carbon Dioxide Level 30 Chloride Level 100 Creatinine 0.93 Eosinophils # 0.3 Eosinophils % 2.5 Glucose Level 97 Hematocrit 52.4 H Hemoglobin 17.5 Lymphocytes # 2.7 Lymphocytes % 26.3 Mean Corpuscular Hemoglobin 30.4 Mean Corpuscular Hemoglobin Concent 33.3 Mean Corpuscular Volume 91.1 Mean Platelet Volume 9.1 Monocytes # 0.9 Monocytes % 9.1 Neutrophils # 6.2 Neutrophils % 61.7 Nucleated Red Blood Cells # 0.0 Nucleated Red Blood Cells % 0.0 Platelet Count 219 Potassium Level 3.4 L Red Blood Count 5.75 Red Cell Distribution Width 14.0 Sodium Level 139 White Blood Count 10.1 Medications Medications Current Medications Lorazepam (Ativan) 0.5 mg Q6H PRN IV ANXIETY Last administered on 05/03/16t 20: 32; Admin Dose 0.5 MG; Start 05/02/16 at 05:30 Ondansetron HCl (Zofran Inj) 4 mg Q6H PRN IV NAUSEA AND/OR VOMITING; Start at 05:30 Nitroglycerin (Nitroglycerin (Sl Tab) 0.4 Mg) 1 tab Q5M PRN SL CHEST PAIN; Start 05/02/16 at 05:30 Acetaminophen (Tylenol Tab) 650 mg Q6H PRN PO PAIN LEVEL 1-3 OR FEVER; Start at 05:30 Morphine Sulfate (morphine) 2 mg Q4H PRN IV PAIN LEVEL 7-10; Start 05/02/16 at 05:30 Docusate Sodium (Colace) 100 mg Q12H PRN PO CONSTIPATION; Start 05/02/16 at 05: 30 Famotidine (Pepcid) 20 mg Q12 PO Last administered on 05/04/16 08:20; Admin Dose 20 MG; Start 05/02/16 at 09:00 Enoxaparin Sodium (Lovenox) 40 mg DAILY SC Last administered on 05/04/16 08:21 ; Admin Dose 40 MG; Start 05/02/16 at 09:00 Aspirin (Aspirin) 81 mg DAILY PO Last administered on 05/04/16 08:19; Admin Dose 81 MG; Start 05/02/16 at 09:00 Atorvastatin Calcium (Lipitor) 80 mg QHS PO Last administered on 05/03/16 20: 32; Admin Dose 80 MG; Start 05/02/16 at 21:00 Carvedilol (Coreg) 12.5 mg BID PO Last administered on 05/04/16 08:19; Admin Dose 12.5 MG; Start 05/02/16 at 09:00 Spironolactone (Aldactone) 25 mg DAILY PO Last administered on 05/04/16 08:18 ; Admin Dose 25 MG; Start 05/03/16 at 09:00 Hydralazine HCl (Apresoline) 10 mg Q8H PO Last administered on 05/04/16 08:20 ; Admin Dose 10 MG; Start 05/03/16 at 08:30 Isosorbide Mononitrate (Ismo) 20 mg DAILY PO Last administered on 05/04/16 08: 18; Admin Dose 20 MG; Start 05/03/16 at 09:00 Diphenhydramine HCl (Benadryl) 25 mg HS PRN PO SLEEP Last administered on 23:31; Admin Dose 25 MG; Start 05/03/16 at 23:00 RYAN NESS MD May 04, 2016 18:23
[2016-05-04] MEDS: ATORVASTATIN 80 MG TAB PO SCH (20:32)
[2016-05-04] MEDS: DIPHENHYDRAMINE 25 MG CAP PO PRN (23:28)
[2016-05-05] VITALS (9 sets, daily range): BP systolic 103–124; BP diastolic 66–72; PULSE 83–107; RESP 19–20
[2016-05-05 08:20] LABS: ALBUMIN 3.4 g/dl (3.3-4.9)
[2016-05-05 08:23] LABS: ALBUMIN/GLOBULIN RATIO 0.91; BILIRUBIN,INDIRECT 0.5 mg/dl (0-1.1); BILIRUBIN,TOTAL 0.5 mg/dl (0.2-1.3); CREATININE 0.88 mg/dl (0.61-1.24); TOTAL PROTEIN 7.1 g/dl (6.1-8.1)
[2016-05-05 08:24] LABS: CALCIUM 8.9 mg/dl (8.4-10.2)
[2016-05-05] MEDS: FAMOTIDINE 20 MG TAB PO SCH (08:44)
[2016-05-05] MEDS: SPIRONOLACTONE 25 MG TAB PO SCH (08:44)
[2016-05-05] MEDS: ASPIRIN 81 MG TAB PO SCH (08:44)
[2016-05-05] MEDS: ENOXAPARIN 40 MG/0.4 ML SYG SC SCH (08:46)
[2016-05-05] MEDS ORDERED: FUROSEMIDE 40 MG TAB PO SCH (09:00)
[2016-05-05] MEDS ORDERED: LISINOPRIL 5 MG TAB PO SCH (09:00)
--- NOTE | 2016-05-05 14:40 | DS ---
Date/Time of Note Date/Time of Note DATE: 05/05/16 TIME: 14:35 Discharge Summary Admission/Discharge Info Admit Date/Time May 02, 2016 at 04:54 Discharge Date/Time Final Diagnosis 1. Acute on chronic systolic heart failure - improved with diuresis, follow up with cardiology 2. Chest pain - ruled out for myocardial infarction, likely secondary to heart failure 3. Cardiomyopathy, LVEF 20% - likely combination of nonischemic and ischemic 4. Status post ICD implantation (2014) 5. 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 History of congenital heart disease, status post cardiac surgery during childhood - details unknown 7. Methamphetamine abuse, advise to quit Patient Condition: Stable Hx of Present Illness 36 yo male with a known history of Methamphetamine drug abuse, Cardiomyopathy with low EF 15% s/p AICD who complains of chest pain and shortness of breath 2 days duration. 2 days ago, he admits to using methamphetamine, and since then he has been having substernal chest pain. The pain is non-radiating, worsening in nature, 10/10 in intensity, pressure like, no alleviating factors, associated with shortness of breath. He also complains of dizziness, headaches, fevers/chills, and generalized malaise, with nausea and vomiting 2 episodes NBNB in nature. Denies any loss of consciousness, urinary/bowel irregularities, constipation/diarrhea or other constitutional symptoms. ED course: lasix, aspirin and breathing treatments ECHO: 05/24/2015 Conclusions 1. Moderate concentric left ventricular hypertrophy. Mild enlargement of left ventricle cavity. Severe global left ventricular systolic dysfunction. Ejection fraction is visually estimated at 15 %. Tissue Doppler/Mitral Doppler indices are consistent with restrictive physiology with markedly elevated left atrial pressure (Stage III-IV diastolic dysfunction). 2. Mitral valve leaflets appear mildly thickened. Mild mitral annular calcification. Mild mitral valve regurgitation. 3. Calcified Aortic cusps appear mildly calcified. No aortic regurgitation. 4. Normal appearance and function of the tricuspid valve with trace physiologic regurgitation. Normal right ventricular systolic pressure. Estimated peak PA systolic pressure 18 mmHg. Hospital Course Echocardiography with LVEF 20%. Patient is treated as congestive heart failure acute decompensation with diuretics. Lisinopril and aldactone are added. Patient 's symptoms improved. He is instructed to be compliant with medical treatment, quit methatamine and follow up with cardiology/PCP outpatient regularly. No evidence of acute NM during this admission. [facility] ~CARDIOLOGY REPORT~ Patient: MASTER BRUMFIELD : 1980 Age: 36 Sex: M Unit #: [id number] [facility] #: [id number] Room/Bed: 512-A Location: [facility] MD: GABBY YUNG MD Signed Echocardiogram Report Patient Name: MASTER BRUMFIELD Gender: Male Date: 1980 Study Date: 02-May-2016 Sock Lining Stitcher: Coleen [facility] Ref. Physician: GABBY YUNG Quality: Adequate Procedures: Transthoracic echocardiogram with complete 2D, M-Mode, and doppler examination. Indications: Cerebrovascular Accident. 2D/M Mode Doppler Measurement Value Normal Ranges Measurement Value Normal Ranges LVIDd 2D 5.7 3.5 - 5.6 cm AV Peak Fitz 0.5 m/sec LVIDs 2D 5.2 2.1 - 4.1 cm AV Peak PG 1.0 mmHg FS 2D 8.9 % AI Peak PG 8.0 mmHg LVPWd 2D 1.3 0.6 - 1.1 cm AI Peak Fitz 1.4 m/sec IVSd 2D 1.3 0.6 - 1.1 cm AI PHT 228.0 msec IVS/LVPW 2D 1.0 LVOT Peak Fitz 0.4 m/sec AoR Diam 2D 3.6 2.0 - 3.7 cm LVOT Peak PG 1.0 mmHg LA/Ao 2D 1 0 - 1 MV E Peak Fitz 1.1 m/sec EDV 2D 180.0 cm3 TR Peak Fitz 3.5 m/sec ESV 2D 137.0 cm3 TR Peak PG 48.0 mmHg LA Dimen 2D 5.0 2.3 - 4.0 cm Findings Left Ventricle: Normal left ventricular cavity size. Left ventricular wall thickness upper limits of normal. Severe global left ventricular systolic dysfunction. Ejection fraction is visually estimated at 20 %. Tissue Doppler/Mitral Doppler indices are consistent with restrictive physiology with markedly elevated left atrial pressure (Stage IIIIV diastolic dysfunction). Right Ventricle: Mild enlargement of right ventricle. Mild right ventricular hypokinesis. Pacemaker right heart. Left Atrium: There is moderate enlargement of left atrium. Right Atrium: There is mild enlargement of right atrium. Mitral Valve: Mitral valve leaflets appear mildly thickened. Mild to moderate mitral valve regurgitation. Aortic Valve: Normal trileaflet aortic valve structure. Mild aortic valve regurgitation. Tricuspid Valve: Estimated peak PA systolic pressure 63 mmHg. Tricuspid valve appears mildly thickened. There is mild tricuspid regurgitation. Pulmonic Valve: There is mild pulmonic regurgitation. Pericardium: Normal pericardium with no significant pericardial effusion. Left pleural effusion seen. Aorta: Normal aortic root. IVC: Dilated inferior vena cava with poor inspiratory collapse consistent with elevated right atrial pressures. Conclusions 1. The left ventricle is normal in size with severely reduced systolic function. There is global hypokinesis. 2. Estimated left ventricular ejection fraction of 20%. 3. Mild to moderate mitral regurgitation. 4. Moderate left atrial and mild right atrial enlargement. 5. Pulmonary hypertension with estimated RVSP of 63 mmHg. Electronically Signed By: Bry Fortune 04-May-2016 17:29:02 -0800 Patient Name: MASTER BRUMFIELD Study Date: 02-May-[id number] Home Meds Reported Medications Carvedilol* (Carvedilol*) 12.5 Mg Tablet, 12.5 MG PO BID, #60 TAB 10/05/15 Atorvastatin* (Atorvastatin*) 80 Mg Tablet, 80 MG PO QHS, #30 TAB 10/05/15 Aspirin* (Aspirin* Chew) 81 Mg Tab.chew, 81 MG PO DAILY, TAB.CHEW 10/05/15 Follow-up Plan cardiology one week PCP one week Pending Labs Laboratory Tests Test 05/05/16 06:55 Alanine Aminotransferase (ALT/SGPT) 44IU/L (13-69) Albumin 3.4g/dl (3.3-4.9) Albumin/Globulin Ratio 0.91 Alkaline Phosphatase 111IU/L (42-121) Anion Gap 17 (8-16) Aspartate Amino Transf (AST/SGOT) 36IU/L (15-46) Blood Urea Nitrogen 35mg/dl (7-20) Calcium Level 8.9mg/dl (8.4-10.2) Carbon Dioxide Level 26mmol/L (21-31) Chloride Level 99mmol/L (97-110) Creatinine 0.88mg/dl (0.61-1.24) Direct Bilirubin 0.00mg/dl (0.00-0.20) Globulin 3.70g/dl (1.3-3.2) Glucose Level 95mg/dl (70-220) Indirect Bilirubin 0.5mg/dl (0-1.1) Potassium Level 4.0mmol/L (3.5-5.1) Sodium Level 138mmol/L (135-144) Total Bilirubin 0.5mg/dl (0.2-1.3) Total Protein 7.1g/dl (6.1-8.1) MARINA DELGADO MD May 05, 2016 14:40
[2016-05-05] MEDS ORDERED: ALDS PO (14:50)
[2016-05-05] MEDS ORDERED: LISI-313 PO (14:50)
== END 2016-05-05 15:35 | disposition home or self-care (01) | DRG 292 ==
LOC: E/R 01:02 → TEL 04:54
PROVIDERS: ADMIT Student in an Organized Health Care Education/Training Program; ATTEND Student in an Organized Health Care Education/Training Program
DX: I50.23 Acute on chronic systolic (congestive) heart failure (principal); I42.9 Cardiomyopathy, unspecified; I10 Essential (primary) hypertension; R07.9 Chest pain, unspecified; E78.5 Hyperlipidemia, unspecified; I25.10 Atherosclerotic heart disease of native coronary artery without angina pectoris; F15.10 Other stimulant abuse, uncomplicated; I25.5 Ischemic cardiomyopathy; Q24.9 Congenital malformation of heart, unspecified; Z72.0 Tobacco use; Z91.14 Patient's other noncompliance with medication regimen; Z95.810 Presence of automatic (implantable) cardiac defibrillator
CPT/HCPCS: 36415; 71010; 80048; 80053; 80061; 80306; 80307; 81001; 81003; 82550; 82553; 83605; 83735; 83880; 84443; 84484; 85025; 85610; 85730; 87040; 87086; 90686; 93005; 93306; 94640; 94664; 96372; 96374; 96376; J1650; J1940; J2060; J2270

== ENCOUNTER 2016-05-14 04:04 | Observation (INO) | payer MEDICAID ==
[~2016-05-14] VITALS: Ht 182.9 cm; Wt 75.9 kg
[2016-05-14] VITALS (7 sets, daily range): BP systolic 95–110; BP diastolic 60–79; PULSE 87–94; RESP 16–17; Ht 182.9 cm; Wt 75.9 kg
[~2016-05-14 04:04] MED LIST changes: +ALDS PO; +LISI-313 PO
--- NOTE | 2016-05-14 04:09 | ERA ---
ER Documentation Chief Complaint Date/Time DATE: 05/14/16 TIME: 04:09 Chief Complaint Shortness of breath HPI The patient is a 36-year-old male, presenting to the ER because of shortness of breath from coughing for the last few hours prior to arrival. He was admitted to [facility] about 12 days ago for CHF. He was discharged from [facility] hospital 2 days ago. He last used amphetamine was a few weeks ago according to him. He denies fever, nasal congestion, complains of intermittent cough for the last 2 weeks. He denies chest pain, abdominal pain, vomiting, dysuria, diarrhea, constipation. He does illicit drug Past medical history: History of systolic heart failure, cardiomyopathy with low EF of 20%, CAD, congenital heart disease status post surgery-the details unclear, dyslipidemia Past surgical history: AICD, cardiac angiogram in 2014 that showed single- vessel disease ROS All systems reviewed and are negative except as per history of present illness. Medications Home Meds Active Scripts Lisinopril* (Lisinopril*) 5 Mg Tablet, 5 MG PO DAILY for 30 Days, TAB Prov:MARINA DELGADO MD 05/05/16 Spironolactone* (Aldactone*) 5 Mg/Ml (COMPOUNDED) Susp, 25 MG PO DAILY for 30 Days Prov:MARINA DELGADO MD 05/05/16 Reported Medications Carvedilol* (Carvedilol*) 12.5 Mg Tablet, 12.5 MG PO BID, #60 TAB 10/05/15 Atorvastatin* (Atorvastatin*) 80 Mg Tablet, 80 MG PO QHS, #30 TAB 10/05/15 Aspirin* (Aspirin* Chew) 81 Mg Tab.chew, 81 MG PO DAILY, TAB.CHEW 10/05/15 Allergies Allergies: Coded Allergies: No Known Allergy (Unverified , 10/05/15) PMhx/Soc History of Surgery: Yes (open heart 1991) Anesthesia Reaction: No Hx Neurological Disorder: No Hx Respiratory Disorders: Yes (hx CHF) Hx Cardiac Disorders: Yes (as above) Hx Psychiatric Problems: No Hx Miscellaneous Medical Probl: No Hx Alcohol Use: No Hx Substance Use: Yes (methamphetamines) Hx Tobacco Use: Yes Physical Exam Vitals Vital Signs Date Time Temp Pulse Resp B/P Pulse Ox O2 Delivery O2 Flow Rate FiO2 05/14/16 04:11 97.7 89 24 101/74 98 Physical Exam Const: No acute distress. Head: Atraumatic. Eyes: Normal Conjunctiva. ENT: Normal External Ears, Nose and Mouth. Neck: Full range of motion. No meningismus. Resp: Mild bibasilar crackles Cardio: Regular rate and rhythm, no murmurs. Abd: Soft, non distended, normal bowel sounds, non tender. Skin: No petechiae or rashes. Back: No midline or flank tenderness. Ext: No cyanosis, or edema. Neur: Awake and alert. No focal deficit Psych: Normal Mood and Affect. Result Diagram: 05/14/16 0425 Results 24 hrs Laboratory Tests Test 05/14/16 04:25 Activated Partial Thromboplast Time 31.5Sec Basophils # 0.110^3/ul Basophils % 0.6% Blood Morphology Comment Eosinophils # 0.310^3/ul Eosinophils % 3.0% Hematocrit 43.7% Hemoglobin 14.8g/dl INR International Normalized Ratio 1.03 Lymphocytes # 3.710^3/ul Lymphocytes % 35.4% Mean Corpuscular Hemoglobin 30.7pg Mean Corpuscular Hemoglobin Concent 33.8g/dl Mean Corpuscular Volume 90.7fl Mean Platelet Volume 9.0fl Monocytes # 0.610^3/ul Monocytes % 5.6% Neutrophils # 5.710^3/ul Neutrophils % 55.4% Nucleated Red Blood Cells # 0.010^3/ul Nucleated Red Blood Cells % 0.0/100WBC Platelet Count 71378^3/UL Prothrombin Time 13.5Sec Prothrombin Time Ratio 1.1 Red Blood Count 4.8210^6/ul Red Cell Distribution Width 15.0% White Blood Count 10.410^3/ul Current Medications Medications (Trade) Dose Ordered Sig/Gayle Route PRN Reason Start Time Stop Time Status Last Admin Dose Admin IV Flush (NS 3 ml) 3 ml PER PROTOCOL IV 05/14/16 05:30 UNV Lorazepam (Ativan) 0.5 mg Q6H PRN IV ANXIETY 05/14/16 05:30 UNV Ondansetron HCl (Zofran Inj) 4 mg Q6H PRN IV NAUSEA AND/OR VOMITING 05/14/16 05:30 UNV Furosemide (Lasix) 40 mg ONCE ONCE IV 05/14/16 13:00 05/14/16 13:01 UNV Nitroglycerin (Nitroglycerin (Sl Tab) 0.4 Mg) 1 tab Q5M PRN SL CHEST PAIN 05/14/16 05:30 UNV Acetaminophen (Tylenol Tab) 650 mg Q6H PRN PO PAIN LEVEL 1-3 OR FEVER 05/14/16 05:30 UNV Morphine Sulfate (morphine) 2 mg Q4H PRN IV PAIN LEVEL 7-10 05/14/16 05:30 UNV Docusate Sodium (Colace) 100 mg Q12H PRN PO CONSTIPATION 05/14/16 05:30 UNV Famotidine (Pepcid) 20 mg Q12 PO 05/14/16 09:00 UNV Enoxaparin Sodium (Lovenox) 40 mg DAILY SC 05/14/16 09:00 UNV Aspirin (Aspirin) 81 mg DAILY PO 05/14/16 09:00 UNV Atorvastatin Calcium (Lipitor) 80 mg QHS PO 05/14/16 21:00 UNV Carvedilol (Coreg) 12.5 mg BID PO 05/14/16 09:00 UNV Lisinopril (Zestril) 5 mg DAILY PO 05/14/16 09:00 UNV Spironolactone (Aldactone Susp (Ped)) 25 mg DAILY PO 05/14/16 09:00 UNV Procedures/MDM EKG: Read by emergency physician at 4:09 AM Rate/Rhythm: Normal Sinus Rhythm 89 beats per min QRS, ST, T-waves: No ST elevation, no T wave inversion, right bundle branch block, left anterior fascicular block, LVH, lateral T abnormality Impression: Abnormal EKG EKG: Read by emergency physician Rate/Rhythm: Normal Sinus Rhythm 85 beats per min at 4:45 AM QRS, ST, T-waves: No ST elevation, no T wave inversion, right bundle branch block, left anterior fascicular block, LVH, lateral T abnormality Impression: Abnormal EKG [place] [id number] Radiology Main Line: [phone] DIAGNOSTIC IMAGING REPORT Patient: MASTER BRUMFIELD : 1980 Age: 36 Sex: M MR #: [id number] DOS: 05/14/16 0409 Ordering MD: KENIA MAYA MD Location: E/R Room/Bed: PROCEDURE: CHEST - 1 VIEW CLINICAL INDICATION: 36-year-old male with shortness of breath. TECHNIQUE: A single frontal AP semi-supine view of the chest was performed portably. The images were reviewed on a PACS workstation. COMPARISON: Chest x-ray May 02, 2016. FINDINGS: There is a left-sided AICD device. The patient has had a prior median sternotomy. The cardiomediastinal silhouette is enlarged. There is mild pulmonary vascular congestion. There is elevation right hemidiaphragm. There is linear left basilar subsegmental atelectasis. There is no evidence for an infiltrate. There is no evidence for pneumothorax. The osseous structures are intact. IMPRESSION: 1. Left-sided AICD device. 2. Status post median sternotomy. 3. Cardiomegaly. 4. Mild pulmonary vascular congestion. 5. Linear left basilar subsegmental atelectasis. .Ishan Uriarte MD, MD Date Time Electronically viewed and signed by .Ishan Uriarte MD, MD on 05/14/2016 04:57 .M/ CC: KENIA MAYA MD MEDICAL MAKING DECISION: The patient is a 36-year-old male, presenting with acute on chronic systolic heart failure. He was treated with Lasix fentanyl IV with good response. The differential diagnoses considered include but are not limited to asthma, COPD, pneumonia, pulmonary embolus, pleural effusion, congestive heart failure. Departure Diagnosis: Primary Impression: CHF (congestive heart failure) Condition: Stable Comments I discussed the findings with the patient. I discussed the patient with the on- call hospitalist Dr Christensen. who was made aware of the lab, the treatment, the patient condition. The patient is admitted to telemetry for 24 hour observation KENIA MAYA MD May 14, 2016 04:09
[2016-05-14 04:54] LABS: BASOPHIL # 0.1 10^3/ul (0.0-0.1); BASOPHILS % 0.6 % (0.0-2.0); EOSINOPHILS # 0.3 10^3/ul (0.0-0.5); HEMATOCRIT 43.7 % (42.0-52.0); HEMOGLOBIN 14.8 g/dl (14.0-18.0); LYMPHOCYTES # 3.7 10^3/ul (0.8-2.9); LYMPHOCYTES % 35.4 % (15.0-51.0); MEAN CORPUSCULAR HEMOGLOBIN 30.7 pg (29.0-33.0); MEAN CORPUSCULAR HGB CONC 33.8 g/dl (32.0-37.0); MEAN CORPUSCULAR VOLUME 90.7 fl (82.0-101.0); MONOCYTE # 0.6 10^3/ul (0.3-0.9); MONOCYTES % 5.6 % (0.0-11.0); NEUTROPHIL # 5.7 10^3/ul (1.6-7.5); NEUTROPHILS % 55.4 % (39.0-77.0); PLATELET COUNT 247 10^3/UL (140-440); RED BLOOD COUNT 4.82 10^6/ul (4.70-6.10); UNCORRECTED WBC 10.4 10^3/ul (4.8-10.8); WHITE BLOOD COUNT 10.4 10^3/ul (4.8-10.8)
[2016-05-14 04:55] LABS: CONDITION 1; INR 1.03; LH ANALYZER COMMENTS 1; PROTIME 13.5 Sec (12.2-14.2); PT RATIO 1.1
[2016-05-14 04:56] LABS: PARTIAL THROMBOPLASTIN TIME 31.5 Sec (25.0-35.0)
--- NOTE | 2016-05-14 04:57 | RADRPT ---
PROCEDURE: CHEST - 1 VIEW CLINICAL INDICATION: 36-year-old male with shortness of breath. TECHNIQUE: A single frontal AP semi-supine view of the chest was performed portably. The images w ere reviewed on a PACS workstation. COMPARISON: Chest x-ray May 02, 2016. FINDINGS: There is a left-sided AICD device. The patient has had a prior median sternotomy. The cardiomedias tinal silhouette is enlarged. There is mild pulmonary vascular congestion. There is elevation righ t hemidiaphragm. There is linear left basilar subsegmental atelectasis. There is no evidence for a n infiltrate. There is no evidence for pneumothorax. The osseous structures are intact. IMPRESSION: 1. Left-sided AICD device. 2. Status post median sternotomy. 3. Cardiomegaly. 4. Mild pulmonary vascular congestion. 5. Linear left basilar subsegmental atelectasis. .Ishan Uriarte MD, MD Date Time Electronically viewed and signed by .Ishan Uriarte MD, on 05/14/2016 04:57 .M/
[2016-05-14 05:01] LABS: CHLORIDE 103 mmol/L (97-110); POTASSIUM 3.7 mmol/L (3.5-5.1); SODIUM 139 mmol/L (135-144)
[2016-05-14 05:04] LABS: ANION GAP 13 (8-16); BLOOD UREA NITROGEN 31 mg/dl (7-20); CARBON DIOXIDE 27 mmol/L (21-31); CREATININE 0.98 mg/dl (0.61-1.24)
[2016-05-14 05:05] LABS: CALCIUM 8.3 mg/dl (8.4-10.2); GLUCOSE 142 mg/dl (70-220)
--- NOTE | 2016-05-14 05:07 | HP ---
Date/Time of Note Date/Time of Note DATE: 05/14/16 TIME: 05:05 Assessment/Plan VTE Prophylaxis VTE Prophylaxis Intervention: LMWH Assessment/Plan Assessment/Plan 36 yo male with a known history of Methamphetamine drug abuse, Cardiomyopathy with low EF 20% s/p AICD who complains of chest pain and shortness of breath 1 day duration. 1. Shortness of breath- 2/2 to CHF exac acute on chronic systolic/diastolic dysfunction- will admit the patient to telemetry, cycle cardiac markers, check TSH/Mag levels, fall precautions, diuresis, strict I/O's, continue with coreg/ BB/aspirin/statin - spironolactone 2. Transaminitis - 2/2 RHF - monitor trend 3. GI ppx - pepcid 4. DVT ppx - lovenox answered all of his questions. as per clinical course. this history and physical took greater then 45 minutes to complete HPI/ROS Admit Date/Time Admit Date/Time 05/14/2016, 5:05 am Hx of Present Illness 36 yo male with a known history of Methamphetamine drug abuse, Cardiomyopathy with low EF 20% s/p AICD who complains of chest pain and shortness of breath 1 day duration. He was just admitted on 05/04/16 for the same presentation. 3 days ago, he admits to using methamphetamine, and since then he has been having shortness of breath. He also complains of dizziness, headaches, fevers/chills, and generalized malaise, with nausea and vomiting 2 episodes NBNB in nature. Denies any loss of consciousness, urinary/bowel irregularities, constipation/ diarrhea or other constitutional symptoms. ED course: lasix, aspirin and breathing treatments ECHO 05/05/2016 Conclusions 1. The left ventricle is normal in size with severely reduced systolic function. There is global hypokinesis. 2. Estimated left ventricular ejection fraction of 20%. 3. Mild to moderate mitral regurgitation. 4. Moderate left atrial and mild right atrial enlargement. 5. Pulmonary hypertension with estimated RVSP of 63 mmHg. ROS 14 point review of systems completed, please refer to HPI for any positive findings PMH/Family/Social Past Medical History Medical History: congestive heart failure, coronary artery disease, hypertension Past Surgical History s/p AICD Family History Significant Family History: no pertinent family hx Social History Alcohol Use: none Smoking Status: Current every day smoker Drug Use: other (methaphetamine) Exam/Review of Systems Vital Signs Vitals Vital Signs Date Time Temp Pulse Resp B/P Pulse Ox O2 Delivery O2 Flow Rate FiO2 05/14/16 04:11 97.7 89 24 101/74 98 Exam Exam Gen Mariam: mildrespiratory distress, AAOx4 HEENT: NC/AT, PERRLA, EOMI, no pharyngeal erythema, no tonsillar exudates, no lymphadenopathy, no JVD, no carotid bruits NECK: supple, no thyromegaly THORAX: symmetrical, no obvious deformities CV: S1S2, RRR, no M/G/R Lungs: bibasilar crackles, increased work of breathing, no wheezing or rhonchi Abd: soft, NT/ND, +BS, no rebound, no guarding, neg HSM EXT: trace lower extremity edema, no ecchymosis, + clubbing, FROM Neuro: CN II-XII grossly intact, no focal deficits Psych: fair mood and affect Skin: C/D/I Labs Result Diagram: 05/14/16 0425 Procedures Procedures CXR IMPRESSION: 1. Left-sided AICD device. 2. Status post median sternotomy. 3. Cardiomegaly. 4. Mild pulmonary vascular congestion. 5. Linear left basilar subsegmental atelectasis. GABBY YUNG MD May 14, 2016 05:07
[2016-05-14 05:12] LABS: ETHANOL < 10.0 mg/dl
[2016-05-14] MEDS ORDERED: DOCUSATE SODIUM 100 MG CAP PO PRN (05:30)
[2016-05-14] MEDS ORDERED: morphine 2 MG INJ IV PRN (05:30)
[2016-05-14] MEDS ORDERED: FUROSEMIDE 40 MG INJ IV ONE ×2 (05:30→13:00)
[2016-05-14] MEDS ORDERED: LORAZEPAM 2 MG INJ IV PRN (05:30)
[2016-05-14] MEDS ORDERED: NITROGLYCERIN (SL) 0.4 MG TAB SL PRN (05:30)
[2016-05-14] MEDS ORDERED: ONDANSETRON 4 MG INJ IV PRN (05:30)
[2016-05-14] MEDS ORDERED: ACETAMINOPHEN 325 MG TAB PO PRN (05:30)
[2016-05-14] MEDS ORDERED: NACL 0.9% 3 ML SYG IV SCH (05:30)
[2016-05-14 06:53] LABS: MAGNESIUM 1.6 mg/dl (1.7-2.5)
[2016-05-14 07:01] LABS: BARBITURATES Negative (NEGATIVE); BENZODIAZEPINES Negative (NEGATIVE); CANNABINOIDS Positive (NEGATIVE)
[2016-05-14 07:02] LABS: COCAINE Negative (NEGATIVE); OPIATES Negative (NEGATIVE)
[2016-05-14 07:25] LABS: THYROID STIMULATING HORMONE 7.63 MIU/L (0.465-4.680)
[2016-05-14 08:50] LABS: TROPONIN-I 0.044 ng/ml (0.00-0.12)
[2016-05-14 08:52] LABS: CK-MB 1.13 ng/ml (0.0-2.4)
[2016-05-14] MEDS: FAMOTIDINE 20 MG TAB PO SCH ×2 (09:28→20:37)
[2016-05-14] MEDS: SPIRONOLACTONE 25 MG TAB PO SCH (09:28)
[2016-05-14] MEDS: ASPIRIN 81 MG TAB PO SCH (09:28)
[2016-05-14] MEDS: ENOXAPARIN 40 MG/0.4 ML SYG SC SCH (09:29)
[2016-05-14] MEDS: LISINOPRIL 5 MG TAB PO SCH (12:33)
[2016-05-14 15:39] LABS: TROPONIN-I 0.035 ng/ml (0.00-0.12)
[2016-05-14 15:45] LABS: CK-MB 0.87 ng/ml (0.0-2.4)
[2016-05-14] MEDS ORDERED: MAGNESIUM SULFATE 3 GM in SOD CHLORIDE 0.9% 100 ML IVPB ONE (17:30)
[2016-05-14] MEDS: FUROSEMIDE 40 MG INJ IV SCH (18:44)
[2016-05-14] MEDS ORDERED: ZOLPIDEM 5 MG TAB PO PRN (20:30)
[2016-05-14] MEDS ORDERED: ATORVASTATIN 80 MG TAB PO SCH (21:00)
[2016-05-15 00:12] VITALS: BP 110/68; RESP 20
[2016-05-15 01:10] VITALS: PULSE 85
[2016-05-15 03:26] VITALS: BP 115/70; RESP 16
[2016-05-15 04:26] VITALS: PULSE 89
[2016-05-15] MEDS: FUROSEMIDE 40 MG INJ IV SCH (05:51)
[2016-05-15 06:54] VITALS: BP 114/70; RESP 18
[2016-05-15 07:02] LABS: BASOPHIL # 0.1 10^3/ul (0.0-0.1); BASOPHILS % 1.2 % (0.0-2.0); EOSINOPHILS # 0.3 10^3/ul (0.0-0.5); EOSINOPHILS % 3.4 % (0.0-7.0); HEMATOCRIT 50.1 % (42.0-52.0); HEMOGLOBIN 17.1 g/dl (14.0-18.0); LYMPHOCYTES # 2.8 10^3/ul (0.8-2.9); LYMPHOCYTES % 28.7 % (15.0-51.0); MEAN CORPUSCULAR HEMOGLOBIN 30.9 pg (29.0-33.0); MEAN CORPUSCULAR HGB CONC 34.1 g/dl (32.0-37.0); MEAN CORPUSCULAR VOLUME 90.5 fl (82.0-101.0); MEAN PLATELET VOLUME 9.4 fl (7.4-10.4); MONOCYTE # 0.7 10^3/ul (0.3-0.9); MONOCYTES % 6.8 % (0.0-11.0); NEUTROPHIL # 5.8 10^3/ul (1.6-7.5); NEUTROPHILS % 59.9 % (39.0-77.0); PLATELET COUNT 249 10^3/UL (140-440); RED BLOOD COUNT 5.54 10^6/ul (4.70-6.10); RED CELL DISTRIBUTION WIDTH 14.9 % (11.5-14.5); UNCORRECTED WBC 9.8 10^3/ul (4.8-10.8); WHITE BLOOD COUNT 9.8 10^3/ul (4.8-10.8)
[2016-05-15 07:08] LABS: POTASSIUM 4.1 mmol/L (3.5-5.1)
[2016-05-15 07:11] LABS: CREATININE 0.87 mg/dl (0.61-1.24)
[2016-05-15 07:21] LABS: CONDITION 1; LH ANALYZER COMMENTS 1
[2016-05-15 08:28] VITALS: PULSE 94
[2016-05-15] MEDS: SPIRONOLACTONE 25 MG TAB PO SCH (08:40)
[2016-05-15] MEDS: FAMOTIDINE 20 MG TAB PO SCH (08:40)
[2016-05-15] MEDS: ASPIRIN 81 MG TAB PO SCH (08:40)
[2016-05-15] MEDS: LISINOPRIL 5 MG TAB PO SCH (08:40)
[2016-05-15] MEDS: ENOXAPARIN 40 MG/0.4 ML SYG SC SCH (08:49)
--- NOTE | 2016-05-15 09:17 | PDOCDIS ---
Discharge Instructions CONDITION Patient Condition: Stable HOME CARE INSTRUCTIONS: Special Diet: Cardiac diet ACTIVITY: Activity Restrictions: Slowly Increase Activity FOLLOW UP/APPOINTMENTS Appointments Please take your medications as prescribed, and follow up with your heart doctors at [facility] regularly. HEATH LARKIN May 15, 2016 09:17
[2016-05-15] MEDS ORDERED: FURO40TA4 PO (09:18)
--- NOTE | 2016-05-15 09:48 | DS ---
DATE OF ADMISSION: 05/14/2016 DATE OF DISCHARGE: 05/15/2016 This is a 36-year-old male originally admitted on 05/14/2016, is being discharged home on 05/15/2016 . The patient came in with shortness of breath and chest pain. He has a longstanding history of se eloina cardiomyopathy, a history of prior methamphetamine drug abuse, ejection fraction is 20%. He hernandez s an AICD. He was admitted to the telemetry floor again. He was ruled out for acute coronary syndr ome. He was also treated for mild congestive heart failure exacerbation. He had a chest x-ray perf ormed that showed mild pulmonary vascular congestion. He was given Lasix IV, which helped him diure se well. Over the course of his hospital stay his shortness of breath symptoms improved. He had le ss chest pain symptoms. He was able to ambulate and tolerate a p.o. diet. The patient says that he has an appointment at [facility] cardiology clinic in the next few days, on 05/19/2016. He has been stron gly encouraged to follow up with that appointment as well, and to have regular cardiology care as an outpatient to help treat his CHF and cardiomyopathy as well. Because the patient is clinically imp roved, his vital signs are stable, he is ambulating, and tolerating a p.o. diet, he will be discharg ed home today in an improved condition. He will be sent with the following medications: 1. Lasix 40 mg p.o. daily. 2. Aspirin 81 mg daily. 3. Atorvastatin 80 mg at bedtime. 4. Coreg 12.5 mg b.i.d. 5. Lisinopril 5 mg daily. 6. Spironolactone 25 mg daily. Again, he will follow up at [facility] on 05/19/2016. He has been also educated again about drug cessation , including to stop taking amphetamines, stop taking marijuana, as his U-tox this time did show posi tive for marijuana. Last echocardiogram was on 05/05/2016, which showed an EF of 20%, mild to moder ate mitral regurg, moderate left atrial and mild right atrial enlargement, pulmonary hypertension, w ith an estimated RVSP of 63. The left ventricle is normal in size, severely reduced systolic functio n. There is global hypokinesis. FINAL DIAGNOSES: 1. Shortness of breath and chest pain. Rule out for acute coronary syndrome secondary, again, to a history of severe cardiomyopathy, with an ejection fraction of 20%. 2. History of prior methamphetamine drug abuse. 3. Cardiomyopathy, with an ejection fraction of 20%, status post AICD placement in the past. 4. History of coronary artery disease 5. History of congenital heart disease. Status post cardiac surgery during childhood. Details unk nown. 6. History of medicine noncompliance. Time to discharge the patient was 40 minutes. Dictated By: HEATH KIM Conf#: [id number] DID#: [id number]
[2016-05-16] MEDS ORDERED: FUROSEMIDE 40 MG TAB PO SCH (06:00)
== END 2016-05-15 11:30 | disposition home or self-care (01) ==
LOC: E/R 04:04 → UNDOADMOB 05:11 → TEL 05:11
PROVIDERS: ADMIT Student in an Organized Health Care Education/Training Program; ATTEND Student in an Organized Health Care Education/Training Program
DX: I50.43 Acute on chronic combined systolic (congestive) and diastolic (congestive) heart failure (principal); I42.9 Cardiomyopathy, unspecified; I25.10 Atherosclerotic heart disease of native coronary artery without angina pectoris; F15.10 Other stimulant abuse, uncomplicated
CPT/HCPCS: 36415; 71010; 80048; 80306; 80307; 82550; 82553; 83735; 84443; 84484; 85025; 85610; 85730; 87081; 93005; 96374; J1650; J1940; J3475; Z7500; Z7502; Z7610; G0378

== ENCOUNTER 2016-07-22 10:34 | Inpatient (IN) | payer MEDICAID ==
[~2016-07-22] VITALS: Ht 170.2 cm; Wt 72.2 kg
[~2016-07-22 10:34] MED LIST changes: +FURO40TA4 PO
[2016-07-22] MEDS ORDERED: IPRATROPIUM (NEB) 0.5 MG/2.5 ML AMP INH STA (11:32)
[2016-07-22] MEDS ORDERED: ALBUTEROL 0.5% (NEB) 2.5 MG/0.5 ML AMP INH STA (11:32)
[2016-07-22 12:23] LABS: ADD SCAN DIFF NO
[2016-07-22 12:25] LABS: HEMATOCRIT 49.3 % (42.0-52.0); HEMOGLOBIN 16.1 g/dl (14.0-18.0); MEAN CORPUSCULAR HEMOGLOBIN 30.1 pg (29.0-33.0); MEAN CORPUSCULAR HGB CONC 32.7 g/dl (32.0-37.0); MEAN CORPUSCULAR VOLUME 92.3 fl (82.0-101.0); MEAN PLATELET VOLUME 10.1 fl (7.4-10.4); PLATELET COUNT 261 10^3/UL (140-415); RED BLOOD COUNT 5.34 10^6/ul (4.70-6.10); RED CELL DISTRIBUTION WIDTH 13.6 % (11.5-14.5); WHITE BLOOD COUNT 9.4 10^3/ul (4.8-10.8)
--- NOTE | 2016-07-22 12:26 | RADRPT ---
PROCEDURE: CHEST - 1 VIEW CLINICAL INDICATION: 36-year-old male with shortness of breath. TECHNIQUE: A single frontal AP semi-supine view of the chest was performed portably. The images were reviewed on a PACS workstation. COMPARISON: Chest x-ray May 14, 2016. FINDINGS: There is a left-sided AICD device. The patient has had a prior median sternotomy. The cardiomediasti nal silhouette is enlarged. There is interval decreased mild pulmonary vascular congestion. There is elevation right hemidiaphragm. There is linear left basilar subsegmental atelectasis. There is no e vidence for an infiltrate. There is no evidence for pneumothorax. The osseous structures are intact. IMPRESSION: 1. Cardiomegaly with interval decreased mild congestion. 2. Left-sided AICD device. 3. Status post median sternotomy. 4. Linear left basilar subsegmental atelectasis. RPTAT: JJ .Javier Crain MD, Date Time Electronically viewed and signed by .Javier Crain MD, on 07/22/2016 12:25 .A/
[2016-07-22 12:47] LABS: INR 1.02; POTASSIUM 3.5 mmol/L (3.5-5.1); PROTIME 13.4 Sec (12.2-14.2)
[2016-07-22 12:48] LABS: PARTIAL THROMBOPLASTIN TIME 32.5 Sec (25.0-35.0)
[2016-07-22 12:49] LABS: CREATININE 0.99 mg/dl (0.61-1.24)
[2016-07-22 12:50] LABS: CALCIUM 8.8 mg/dl (8.4-10.2)
[2016-07-22 13:02] LABS: TROPONIN-I 0.022 ng/ml (0.00-0.12)
[2016-07-22] MEDS ORDERED: FUROSEMIDE 20 MG INJ IV ONE (13:30)
[2016-07-22 13:33] LABS: LYMPHOCYTES # 1.8 10^3/ul (0.8-2.9); MONOCYTE # 0.5 10^3/ul (0.3-0.9); MYELOCYTES # 0.1
[2016-07-22 13:34] LABS: TEAR DROP CELLS FEW
[2016-07-22] MEDS ORDERED: SOD CHLORIDE 0.9% 500 ML IV STA (13:50)
[2016-07-22 15:03] LABS: BARBITURATES Negative (NEGATIVE); BENZODIAZEPINES Negative (NEGATIVE); CANNABINOIDS Positive (NEGATIVE)
[2016-07-22] MEDS ORDERED: IOHEXOL 300MG/ML 150 ML BTL ONE (15:07)
[2016-07-22] MEDS ORDERED: SOD CHLORIDE 0.9% 100 ML ONE (15:07)
[2016-07-22 15:15] LABS: COCAINE Negative (NEGATIVE); OPIATES Negative (NEGATIVE)
--- NOTE | 2016-07-22 15:57 | RADRPT ---
PROCEDURE: CTA Chest and pulmonary angiogram. CLINICAL INDICATION: Chest pain and shortness of breath. TECHNIQUE: CT scan of the chest and CT pulmonary angiogram was performed on a multidetector high-r esolution CT scanner. High-resolution thin slice coronal and sagittal imaging was obtained from the axial source images. 3-D volumetric rendered post processing was performed as well. The patient w as examined following the uncomplicated intravenous administration of 90 cc of Omnipaque-300. The im ages were reviewed on a PACS workstation. The total exam CTDI equals 47.89, and 8.74 and the total e xam DLP equals 370.77 mGy-cm. One or more of the following dose reduction techniques were used: Automated exposure control. Adjustment of the mA and/or kV according to patient size. Use of iterative reconstruction technique. COMPARISON: No prior studies are available for comparison. FINDINGS: CT chest: Diffuse interlobular septal thickening is seen suggesting mild interstitial pulmonary edema. There is mild bibasilar atelectasis. No focal opacification, effusion, pneumothorax, edema, or nodules are seen. The central tracheobronchial tree is clear. The mediastinum is unremarkable without evidence for mass or lymphadenopathy. The vascular structur es of the mediastinum are normal in course and caliber. There is multichamber moderate cardiomegaly . Single lead AICD device is in place. The axillary, subpectoral, and supraclavicular regions are u nremarkable. Imaging obtained through the upper abdomen is equally unremarkable. The adrenal glands are symmetri inder normal. The surrounding chest wall is unremarkable. The osseous structures are remarkable fo r degenerative spondylosis of the spine. CT pulmonary angiogram: There is no major pulmonary emboli. There are questionable filling defects in the subsegmental branc hes of the right posterior basal segments. There is no evidence for pulmonary arterial hypertension. IMPRESSION: 1. No major pulmonary emboli. Pulmonary arteries are patent to the level of the segmental arteries . Questionable filling defects are seen in the right posterior basal subsegmental branches. The saleem luation is somewhat limited due to breathing artifacts in the lung bases. 2. Multichamber moderate cardiomegaly. 3. Mild interstitial pulmonary edema. 4. Left-sided single lead AICD device. RPTAT: BB .Ted El MD, MD Date Time Electronically viewed and signed by .Ted El MD, MD on 07/22/2016 15:57 .O/
[2016-07-22] MEDS ORDERED: LORAZEPAM 2 MG INJ IV ONE (17:00)
[2016-07-22] MEDS ORDERED: morphine 4 MG/ML VIAL IV STA (17:13)
--- NOTE | 2016-07-22 17:18 | ERA ---
ER Documentation Chief Complaint Date/Time DATE: 07/22/16 TIME: 17:14 Chief Complaint chest pain and sob since yesterday HPI This is a 36-year-old male with a history of congenital heart deficits, CAD, cardiomyopathy, and congestive heart failure who presents to the emergency room for evaluation of chest pain and shortness of breath. The patient states that it is gotten progressively worse since yesterday. He states that his chest pain and shortness of breath is worse with exertion. He states that he is limited on taking steps at this point and has to stop after 5 steps to catch his breath. The patient localizes chest pain in the center of his chest and denies any radiation the pain. ROS All systems reviewed and are negative except as per history of present illness. Medications Home Meds Active Scripts Furosemide* (Furosemide*) 40 Mg Tablet, 40 MG PO DAILY for 30 Days, TAB Prov:HEATH LARKIN 05/15/16 Lisinopril* (Lisinopril*) 5 Mg Tablet, 5 MG PO DAILY for 30 Days, TAB Prov:MARINA DELGADO MD 05/05/16 Spironolactone* (Aldactone*) 5 Mg/Ml (COMPOUNDED) Susp, 25 MG PO DAILY for 30 Days Prov:MARINA DELGADO MD 05/05/16 Reported Medications Carvedilol* (Carvedilol*) 12.5 Mg Tablet, 12.5 MG PO BID, #60 TAB 10/05/15 Atorvastatin* (Atorvastatin*) 80 Mg Tablet, 80 MG PO QHS, #30 TAB 10/05/15 Aspirin* (Aspirin* Chew) 81 Mg Tab.chew, 81 MG PO DAILY, TAB.CHEW 10/05/15 Allergies Allergies: Coded Allergies: No Known Allergy (Unverified , 07/22/16) PMhx/Soc History of Surgery: Yes (Open heart sx 1991) Anesthesia Reaction: No Hx Neurological Disorder: No Hx Respiratory Disorders: No Hx Cardiac Disorders: Yes (HTN, CHF, CAD) Hx Psychiatric Problems: No Hx Miscellaneous Medical Probl: No Hx Alcohol Use: No Hx Substance Use: Yes (Methamphetamine and marijuana) Hx Tobacco Use: Yes Smoking Status: Current every day smoker Physical Exam Vitals Vital Signs Date Time Temp Pulse Resp B/P Pulse Ox O2 Delivery O2 Flow Rate FiO2 07/22/16 17:02 118 22 143/113 95 Mask 07/22/16 16:00 97.6 114 18 138/99 99 Mask 07/22/16 13:00 104 18 136/97 95 Room Air 07/22/16 11:56 99 18 136/93 99 Room Air 07/22/16 11:52 85 24 95 Nasal Cannula 4.0 07/22/16 11:52 4.0 07/22/16 10:37 97.8 104 20 142/96 95 Physical Exam INITIAL VITAL SIGNS: Reviewed by me GENERAL: The patient is well developed appears to be in mild respiratory distress, diet HEENT: Pupils equal, round, and reactive to light. EOMI. There is no scleral icterus. NECK: C-spine is soft and supple, there is no meningismus. There is no cervical lymphadenopathy. LUNGS: Coarse breath sounds bilaterally with rhonchi auscultated in the bilateral lower lung HEART: Tachycardic, no murmurs, clicks, rubs or gallops. ABDOMEN: Soft, non-tender, non-distended. There are bowel sounds in all four quadrants. No rebound or guarding. EXTREMITIES: There is no peripheral cyanosis or edema. No focal swelling or erythema. NEUROLOGICAL: The patient moves all four extremities with 5/5 strength. Cranial nerves II - XII are intact. Normal gait. Alert and oriented SKIN: Diaphoretic, there is no apparent rash or petechiae. HEME/LYMPHATIC: There is no evidence of excessive bruising or lymphedema. PSYCHIATRIC: The patient does not appear anxious or depressed. Result Diagram: 07/22/16 1215 07/22/16 1215 Results 24 hrs Laboratory Tests Test 07/22/16 12:15 07/22/16 14:30 White Blood Count 9.410^3/ul Red Blood Count 5.3410^6/ul Hemoglobin 16.1g/dl Hematocrit 49.3% Mean Corpuscular Volume 92.3fl Mean Corpuscular Hemoglobin 30.1pg Mean Corpuscular Hemoglobin Concent 32.7g/dl Red Cell Distribution Width 13.6% Platelet Count 45586^3/UL Mean Platelet Volume 10.1fl Neutrophils % 74.0% Lymphocytes % 19.0% Monocytes % 5.0% Myelocytes % 1.0% Neutrophils # 7.010^3/ul Lymphocytes # 1.810^3/ul Monocytes # 0.510^3/ul Myelocytes # 0.1 Differential Comment MANUAL DIFF Large Platelets FEW Tear Drop Cells FEW Prothrombin Time 13.4Sec Prothrombin Time Ratio 1.0 INR International Normalized Ratio 1.02 Activated Partial Thromboplast Time 32.5Sec Sodium Level 135mmol/L Potassium Level 3.5mmol/L Chloride Level 103mmol/L Carbon Dioxide Level 25mmol/L Anion Gap 11 Blood Urea Nitrogen 29mg/dl Creatinine 0.99mg/dl Glucose Level 88mg/dl Calcium Level 8.8mg/dl Troponin I 0.022ng/ml B-Type Natriuretic Peptide 5850PG/ML Urine Opiates Screen Negative Urine Barbiturates Negative Urine Amphetamines Screen POSITIVE Urine Benzodiazepines Screen Negative Urine Cocaine Screen Negative Urine Cannabinoids Positive Current Medications Medications (Trade) Dose Ordered Sig/Gayle Route PRN Reason Start Time Stop Time Status Last Admin Dose Admin Albuterol (Proventil 0.5% (Neb)) 10 mg ONCE STAT INH 07/22/16 11:32 07/22/16 11:33 DC 07/22/16 11:51 Ipratropium [place] (Atrovent 0.02% (Neb)) 1 mg ONCE STAT INH 07/22/16 11:32 07/22/16 11:33 DC 07/22/16 11:51 Furosemide 20 mg 20 mg ONCE ONCE IV 07/22/16 13:30 07/22/16 13:33 DC 07/22/16 14:02 Sodium Chloride (NS) 500 ml @ 500 mls/hr Q1H STAT IV 07/22/16 13:50 07/22/16 14:49 DC 07/22/16 14:02 IV Flush 10 ml 10 ml STK-MED ONCE .ROUTE 07/22/16 15:07 07/22/16 15:08 DC 07/22/16 15:28 Sodium Chloride (NS) 100 ml @ ud STK-MED ONCE .ROUTE 07/22/16 15:07 07/22/16 15:08 DC 07/22/16 15:28 Iohexol (Omnipaque 300mg/ ml) 150 ml STK-MED ONCE .ROUTE 07/22/16 15:07 07/22/16 15:08 DC 07/22/16 15:28 Lorazepam (Ativan) 1 mg ONCE ONCE IV 07/22/16 17:00 07/22/16 17:01 DC Morphine Sulfate (morphine) 4 mg ONCE STAT IV 07/22/16 17:13 07/22/16 17:14 DC Procedures/MDM EKG: Rate/Rhythm: Sinus tachycardia QRS, ST, T-waves: [No changes consistent w/ acute ischemia] Impression: Sinus tachycardia with bifascicular block Chest X-ray 1V Interpreted by me: Soft Tissue: Pulmonary vascular congestion, AICD in place Bones: No acute abnormalities Mediastinum/Cardiac Silhouette/Lungs: Cardiomegaly with pulmonary vascular congestion CTA chest: 1. No major pulmonary emboli. Pulmonary arteries are patent to the level of the segmental arteries. Questionable filling defects are seen in the right posterior basal subsegmental branches. The evaluation is somewhat limited due to breathing artifacts in the lung bases. 2. Multichamber moderate cardiomegaly. 3. Mild interstitial pulmonary edema. 4. Left-sided single lead AICD device. This 36-year-old male presents to the emergency room for evaluation of shortness of breath. When I evaluated him this patient was tachypnea, tachycardic, and did have a pulse oxygen level of 86% on room air. I did place this patient on a nonrebreather mask. The patient was given 500 cc of IV normal saline. The patient was also given a breathing treatment with albuterol and Atrovent. The patient does have a strong congenital heart defect history. He has a history of congestive heart failure with ejection fraction of less than 20%. The patient was given IV Lasix in the emergency room. Upon my reevaluation he states that he is still having chest pain or shortness of breath. Given his hypoxia and respiratory distress the patient will be placed in for admission at this time. No need for BiPAP or intubation at this time as the patient does appear to be mildly improved clinically with a nonrebreather. He will be placed in the telemetry floor at this time. He does have a history of polysubstance abuse and states his last amphetamine use was 48 hours ago. Critical Care: Excluding all billable procedures Time: 35 minutes Treatments/Evaluations: Emergent and rapid respiratory assessment and management with continuous monitoring. Advanced airway equipment at the ready, while the patient's respiratory symptoms were stabilized. Departure Diagnosis: Primary Impression: Acute respiratory failure with hypoxia Additional Impressions: Acute decompensated heart failure Cardiomyopathy Chest congestion History of ventricular septal defect repair Amphetamine abuse Condition: Serious TIFFANI KING DO Jul 22, 2016 17:18
[2016-07-22] MEDS ORDERED: ONDANSETRON 4 MG INJ IV PRN (17:30)
[2016-07-22] MEDS ORDERED: ACETAMINOPHEN 325 MG TAB PO PRN (17:30)
--- NOTE | 2016-07-22 17:45 | HP ---
Date/Time of Note Date/Time of Note DATE: 07/22/16 TIME: 17:27 Assessment/Plan VTE Prophylaxis VTE Prophylaxis Intervention: LMWH Lines/Catheters IV C[facility] Type (from [facility] Saline Lock Assessment/Plan Assessment/Plan 36 yo M with 1. Acute on chronic systolic heart failure with cardiac asthma vs underlying COPD 2. SIRS 2/2 #1 3. Cardiomyopathy, LVEF 20% - likely combination of nonischemic and ischemic Status post ICD implantation (2014) 4. Coronary artery disease - coronary angiography 2014 showed single vessel disease with COUNTY ASSESSOR of LAD 5. History of congenital heart disease, status post cardiac surgery during childhood - details unknown 6. Multisubstance ([employer] / Cannabis /Methamphetamine) abuse 7. Medication noncompliance PLAN: * Aggressive diuresis * r/o ACS * Empiric abx and bronchodilator therapy RTC * will need counselling on quitting amphetamine use once more stable * oxygen therapy and close monitoring * empiric full dose anticoagulation * Pepcid for GI prophylaxis Plan of care has been discussed with patient, questions answered and patient has verbalized understanding. 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 I am unable to get any hx as patient is quite diaphoretic and requiring o2 by mask to maintain saturations. he however nods when asked if he still uses amphetamines and denies trying to kill himself. No other hx is obtainable. ROS Subjective hx not possible: pt critical status PMH/Family/Social Past Medical History Chronic systolic heart failure Cardiomyopathy, LVEF 20% - likely combination of nonischemic and ischemic Status post ICD implantation (2014) Coronary artery disease - coronary angiography 2014 showed single vessel disease with COUNTY ASSESSOR of LAD History of congenital heart disease, status post cardiac surgery during childhood - details unknown Methamphetamine abuse Medication noncompliance Past Surgical History * Open heart surgrery 1991 Social History Smoking Status: Current every day smoker Drug Use: other (meth) Exam/Review of Systems Vital Signs Vitals VS - Last 72 Hours, by Label Date Time Temp Pulse Resp B/P Pulse Ox O2 Delivery O2 Flow Rate FiO2 07/22/16 17:02 118 22 143/113 95 Mask 07/22/16 16:00 97.6 114 18 138/99 99 Mask 07/22/16 13:00 104 18 136/97 95 Room Air 07/22/16 11:56 99 18 136/93 99 Room Air 07/22/16 11:52 85 24 95 Nasal Cannula 4.0 07/22/16 11:52 4.0 07/22/16 10:37 97.8 104 20 142/96 95 Vital Signs Date Time Temp Pulse Resp B/P Pulse Ox O2 Delivery O2 Flow Rate FiO2 07/22/16 17:02 118 22 143/113 95 Mask 07/22/16 16:00 97.6 07/22/16 11:52 4.0 Exam Constitutional: distress, other (somnolent, diaphoretic), No alert Head: normocephalic Eyes: PERRL ENMT: No mucosa pink and moist (dry) Neck: jvd Respiratory: crackles/rales, diminished breath sounds, wheezing Cardiovascular: murmurs/extra sounds, No regular rate and rhythm (tachy) Gastrointestinal: bowel sounds, non-tender, soft Extremities: No edema Neurological: lethargic, No focal weakness Labs Result Diagram: 07/22/16 1215 07/22/16 1215 Procedures Procedures Laboratory Tests Test 07/22/16 12:15 07/22/16 14:30 White Blood Count 9.410^3/ul Red Blood Count 5.3410^6/ul Hemoglobin 16.1g/dl Hematocrit 49.3% Mean Corpuscular Volume 92.3fl Mean Corpuscular Hemoglobin 30.1pg Mean Corpuscular Hemoglobin Concent 32.7g/dl Red Cell Distribution Width 13.6% Platelet Count 46917^3/UL Mean Platelet Volume 10.1fl Neutrophils % 74.0% Lymphocytes % 19.0% Monocytes % 5.0% Myelocytes % 1.0% Neutrophils # 7.010^3/ul Lymphocytes # 1.810^3/ul Monocytes # 0.510^3/ul Myelocytes # 0.1 Differential Comment MANUAL DIFF Large Platelets FEW Tear Drop Cells FEW Prothrombin Time 13.4Sec Prothrombin Time Ratio 1.0 INR International Normalized Ratio 1.02 Activated Partial Thromboplast Time 32.5Sec Sodium Level 135mmol/L Potassium Level 3.5mmol/L Chloride Level 103mmol/L Carbon Dioxide Level 25mmol/L Anion Gap 11 Blood Urea Nitrogen 29mg/dl Creatinine 0.99mg/dl Glucose Level 88mg/dl Calcium Level 8.8mg/dl Troponin I 0.022ng/ml B-Type Natriuretic Peptide 5850PG/ML Urine Opiates Screen Negative Urine Barbiturates Negative Urine Amphetamines Screen POSITIVE Urine Benzodiazepines Screen Negative Urine Cocaine Screen Negative Urine Cannabinoids Positive ER INTERVENTIONS Medications (Trade) Dose Ordered Sig/Gayle Route PRN Reason Start Time Stop Time Status Last Admin Dose Admin Albuterol (Proventil 0.5% (Neb)) 10 mg ONCE STAT INH 07/22/16 11:32 07/22/16 11:33 DC 07/22/16 11:51 10 MG Ipratropium Turpin (Atrovent 0.02% (Neb)) 1 mg ONCE STAT INH 07/22/16 11:32 07/22/16 11:33 DC 07/22/16 11:51 1 MG Furosemide 20 mg 20 mg ONCE ONCE IV 07/22/16 13:30 07/22/16 13:33 DC 07/22/16 14:02 20 MG Sodium Chloride (NS) 500 ml @ 500 mls/hr Q1H STAT IV 07/22/16 13:50 07/22/16 14:49 DC 07/22/16 14:02 500 MLS/HR IV Flush 10 ml 10 ml STK-MED ONCE .ROUTE 07/22/16 15:07 07/22/16 15:08 DC 07/22/16 15:28 10 ML Sodium Chloride (NS) 100 ml @ ud STK-MED ONCE .ROUTE 07/22/16 15:07 07/22/16 15:08 DC 07/22/16 15:28 70 ML/SEC Iohexol (Omnipaque 300mg/ ml) 150 ml STK-MED ONCE .ROUTE 07/22/16 15:07 07/22/16 15:08 DC 07/22/16 15:28 150 ML Lorazepam (Ativan) 1 mg ONCE ONCE IV 07/22/16 17:00 07/22/16 17:01 DC Morphine Sulfate (morphine) 4 mg ONCE STAT IV 07/22/16 17:13 07/22/16 17:14 DC Ondansetron HCl (Zofran Inj) 4 mg ER BRIDGE PRN IV NAUSEA AND/OR VOMITING 07/22/16 17:30 07/23/16 17:29 Acetaminophen (Tylenol Tab) 650 mg ER BRIDGE PRN PO MILD PAIN/FEVER 07/22/16 17:30 07/23/16 17:29 PROCEDURE: CTA Chest and pulmonary angiogram. CLINICAL INDICATION: Chest pain and shortness of breath. TECHNIQUE: CT scan of the chest and CT pulmonary angiogram was performed on a multidetector high-resolution CT scanner. High-resolution thin slice coronal and sagittal imaging was obtained from the axial source images. 3-D volumetric rendered post processing was performed as well. The patient was examined following the uncomplicated intravenous administration of 90 cc of Omnipaque- 300. The images were reviewed on a PACS workstation. The total exam CTDI equals 47.89, and 8.74 and the total exam DLP equals 370.77 mGy-cm. One or more of the following dose reduction techniques were used: Automated exposure control. Adjustment of the mA and/or kV according to patient size. Use of iterative reconstruction technique. COMPARISON: No prior studies are available for comparison. FINDINGS: CT chest: Diffuse interlobular septal thickening is seen suggesting mild interstitial pulmonary edema. There is mild bibasilar atelectasis. No focal opacification, effusion, pneumothorax, edema, or nodules are seen. The central tracheobronchial tree is clear. The mediastinum is unremarkable without evidence for mass or lymphadenopathy. The vascular structures of the mediastinum are normal in course and caliber. There is multichamber moderate cardiomegaly. Single lead AICD device is in place. The axillary, subpectoral, and supraclavicular regions are unremarkable. Imaging obtained through the upper abdomen is equally unremarkable. The adrenal glands are symmetrically normal. The surrounding chest wall is unremarkable. The osseous structures are remarkable for degenerative spondylosis of the spine. CT pulmonary angiogram: There is no major pulmonary emboli. There are questionable filling defects in the subsegmental branches of the right posterior basal segments. There is no evidence for pulmonary arterial hypertension. IMPRESSION: 1. No major pulmonary emboli. Pulmonary arteries are patent to the level of the segmental arteries. Questionable filling defects are seen in the right posterior basal subsegmental branches. The evaluation is somewhat limited due to breathing artifacts in the lung bases. 2. Multichamber moderate cardiomegaly. 3. Mild interstitial pulmonary edema. 4. Left-sided single lead AICD device. RPTAT: BB .Ted El MD, Date Time Electronically viewed and signed by .Ted El MD, MD on 07/22/2016 15:57 .O/ CC: TIFFANI KING DO PROCEDURE: CHEST - 1 VIEW CLINICAL INDICATION: 36-year-old male with shortness of breath. TECHNIQUE: A single frontal AP semi-supine view of the chest was performed portably. The images were reviewed on a PACS workstation. COMPARISON: Chest x-ray May 14, 2016. FINDINGS: There is a left-sided AICD device. The patient has had a prior median sternotomy. The cardiomediastinal silhouette is enlarged. There is interval decreased mild pulmonary vascular congestion. There is elevation right hemidiaphragm. There is linear left basilar subsegmental atelectasis. There is no evidence for an infiltrate. There is no evidence for pneumothorax. The osseous structures are intact. IMPRESSION: 1. Cardiomegaly with interval decreased mild congestion. 2. Left-sided AICD device. 3. Status post median sternotomy. 4. Linear left basilar subsegmental atelectasis. RPTAT: JJ .Javier Crain MD, Date Time Electronically viewed and signed by .Javier Crain MD, MD on 07/22/2016 12:25 .A/ CC: TIFFANI KING DO I reviewed EKG Rate: Wi103 Rhythm: sinus Note: RBBB, Bifascicular block , abn ekg EDIL FAJARDO Jul 22, 2016 17:39
[2016-07-22] MEDS ORDERED: LEVALBUTEROL (NEB) 0.63 MG/3 ML AMP HHN PRN (18:00)
[2016-07-22] MEDS ORDERED: BUMETANIDE 3 MG in DEXTROSE 5% 18 ML IV ONE (18:00)
[2016-07-22] MEDS ORDERED: IPRATROPIUM (NEB) 0.5 MG/2.5 ML AMP HHN PRN (18:00)
[2016-07-22] MEDS: ENOXAPARIN 80 MG/0.8 ML SYG SC SCH (18:07)
[2016-07-22 18:20] LABS: TROPONIN-I 0.035 ng/ml (0.00-0.12)
[2016-07-22 18:28] LABS: CK-MB 1.05 ng/ml (0.0-2.4)
[2016-07-22] MEDS: LEVOFLOXACIN 500MG/D5W (PMX) 100 ML IVPB SCH (18:49)
[2016-07-22] MEDS: ATORVASTATIN 80 MG TAB PO SCH (21:00)
[2016-07-22] MEDS: LEVALBUTEROL (NEB) 0.63 MG/3 ML AMP HHN SCH (22:02)
[2016-07-22] MEDS: IPRATROPIUM (NEB) 0.5 MG/2.5 ML AMP HHN SCH (22:02)
[2016-07-22 23:00] VITALS: TEMP 83
[2016-07-22 23:49] LABS: CK-MB 1.34 ng/ml (0.0-2.4)
[2016-07-22 23:51] LABS: TROPONIN-I 0.051 ng/ml (0.00-0.12)
[2016-07-23] VITALS (12 sets, daily range): BP systolic 100–137; BP diastolic 58–77; PULSE 93–110; RESP 18–20; Ht 170.2 cm; Wt 72.2 kg
[2016-07-23] MEDS: LEVALBUTEROL (NEB) 0.63 MG/3 ML AMP HHN SCH ×6 (00:50→21:11)
[2016-07-23] MEDS: LISINOPRIL 5 MG TAB PO SCH (08:21)
[2016-07-23] MEDS: ASPIRIN 81 MG TAB PO SCH (08:21)
[2016-07-23] MEDS: SPIRONOLACTONE 25 MG TAB PO SCH (08:21)
[2016-07-23] MEDS: FUROSEMIDE 40 MG INJ IV SCH ×2 (08:22→17:46)
[2016-07-23] MEDS: ENOXAPARIN 80 MG/0.8 ML SYG SC SCH (08:23)
[2016-07-23] MEDS: IPRATROPIUM (NEB) 0.5 MG/2.5 ML AMP HHN SCH ×4 (10:21→21:11)
[2016-07-23 10:36] LABS: ADD SCAN DIFF NO
[2016-07-23 10:42] LABS: BASOPHIL # 0.1 10^3/ul (0.0-0.1); BASOPHILS % 0.7 % (0.0-2.0); EOSINOPHILS % 0.3 % (0.0-7.0); HEMATOCRIT 53.7 % (42.0-52.0); HEMOGLOBIN 17.9 g/dl (14.0-18.0); LYMPHOCYTES # 1.7 10^3/ul (0.8-2.9); LYMPHOCYTES % 19.3 % (15.0-51.0); MEAN CORPUSCULAR HEMOGLOBIN 29.8 pg (29.0-33.0); MEAN CORPUSCULAR HGB CONC 33.3 g/dl (32.0-37.0); MEAN CORPUSCULAR VOLUME 89.4 fl (82.0-101.0); MEAN PLATELET VOLUME 10.1 fl (7.4-10.4); MONOCYTE # 0.4 10^3/ul (0.3-0.9); MONOCYTES % 4.1 % (0.0-11.0); NEUTROPHIL # 6.8 10^3/ul (1.6-7.5); NEUTROPHILS % 75.3 % (39.0-77.0); PLATELET COUNT 278 10^3/UL (140-415); RED BLOOD COUNT 6.01 10^6/ul (4.70-6.10); RED CELL DISTRIBUTION WIDTH 13.9 % (11.5-14.5)
[2016-07-23 11:03] LABS: BILIRUBIN,INDIRECT 1.3 mg/dl (0-1.1); BILIRUBIN,TOTAL 1.3 mg/dl (0.2-1.3); CHOL/HDL RATIO 4.3 RATIO; CREATININE 0.95 mg/dl (0.61-1.24); MAGNESIUM 1.4 mg/dl (1.7-2.5); POTASSIUM 3.8 mmol/L (3.5-5.1); TOTAL PROTEIN 7.4 g/dl (6.1-8.1)
[2016-07-23 11:19] LABS: ALBUMIN 3.4 g/dl (3.3-4.9)
[2016-07-23 11:42] LABS: THYROID STIMULATING HORMONE 1.35 MIU/L (0.465-4.680)
[2016-07-23 12:10] LABS: INR 1.17; PT RATIO 1.2
[2016-07-23 12:11] LABS: PARTIAL THROMBOPLASTIN TIME 40.7 Sec (25.0-35.0)
--- NOTE | 2016-07-23 13:51 | PN ---
Date/Time of Note Date/Time of Note DATE: 07/23/16 TIME: 13:44 Assessment/Plan VTE Prophylaxis VTE Prophylaxis Intervention: LMWH Lines/Catheters IV Catheter Type (from Nrs): Saline Lock Assessment/Plan Assessment/Plan 36 yo M with 1. Acute on chronic systolic heart failure with cardiac asthma vs underlying COPD 2. SIRS 2/2 #1 3. Cardiomyopathy, LVEF 20% - likely combination of nonischemic and ischemic Status post ICD implantation (2014) 4. 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 History of congenital heart disease, status post cardiac surgery during childhood - details unknown 6. Multisubstance (Tobacco / Cannabis /Methamphetamine) abuse 7. Medication noncompliance PLAN: * Continue in-house diuresis * Continue bronchodilator therapy * Stop anticoagulation as CTA was negative * SW to provide resources to help with substance abuse * Continue abx for leucocytosis and possible bronchitis * Continue supportive care as patient is still too lethargic for discharge. Prophylaxis: Lovenox / Pepcid Subjective 24 Hr Interval Summary Free Text/Dictation feels much better now stable on NC thirsty though / and hungry we discussed the effect of drug use on his heart and life Exam/Review of Systems Vital Signs Vitals Vital Signs Date Time Temp Pulse Resp B/P Pulse Ox O2 Delivery O2 Flow Rate FiO2 07/23/16 12:47 99 07/23/16 11:29 98.6 19 104/75 97 07/23/16 10:23 3.0 07/23/16 10:22 32 07/23/16 08:00 Nasal Cannula Intake and Output 07/22/16 07/22/16 07/23/16 15:00 23:00 07:00 Intake Total 500 ml Output Total 1400 ml Balance -900 ml Exam Constitutional: alert, oriented, No distress Psych: anxiety Eyes: PERRL ENMT: No mucosa pink and moist (dry) Respiratory: diminished breath sounds, No crackles/rales, No labored breathing, No wheezing Cardiovascular: murmurs/extra sounds, regular rate and rhythm, systolic murmur Gastrointestinal: bowel sounds, non-tender, soft Extremities: No edema Neurological: lethargic, nl mental status Results Result Diagram: 07/23/16 1030 07/23/16 1030 Results 24 hrs Laboratory Tests Test 4/5/17 14:30 07/22/16 17:30 07/22/16 23:20 07/23/16 10:30 Urine Opiates Screen Negative Urine Barbiturates Negative Urine Amphetamines Screen POSITIVE Urine Benzodiazepines Screen Negative Urine Cocaine Screen Negative Urine Cannabinoids Positive Magnesium Level 1.5 L 1.4 L Creatine Kinase 41 40 Creatine Kinase Index 2.6 3.4 Creatinine Kinase MB (Mass) 1.05 1.34 Troponin I 0.035 0.051 White Blood Count 9.0 Red Blood Count 6.01 Hemoglobin 17.9 Hematocrit 53.7 H Mean Corpuscular Volume 89.4 Mean Corpuscular Hemoglobin 29.8 Mean Corpuscular Hemoglobin Concent 33.3 Red Cell Distribution Width 13.9 Platelet Count 278 Mean Platelet Volume 10.1 Neutrophils % 75.3 Lymphocytes % 19.3 Monocytes % 4.1 Eosinophils % 0.3 Basophils % 0.7 Nucleated Red Blood Cells % 0.0 Neutrophils # 6.8 Lymphocytes # 1.7 Monocytes # 0.4 Eosinophils # 0.0 Basophils # 0.1 Nucleated Red Blood Cells # 0.0 Prothrombin Time 15.0 H Prothrombin Time Ratio 1.2 INR International Normalized Ratio 1.17 Activated Partial Thromboplast Time 40.7 H Sodium Level 132 L Potassium Level 3.8 Chloride Level 96 L Carbon Dioxide Level 29 Anion Gap 11 Blood Urea Nitrogen 22 H Creatinine 0.95 Glucose Level 102 Calcium Level 9.0 Total Bilirubin 1.3 Direct Bilirubin 0.00 Indirect Bilirubin 1.3 H Aspartate Amino Transf (AST/SGOT) 38 Alanine Aminotransferase (ALT/SGPT) 51 Alkaline Phosphatase 139 H Total Protein 7.4 Albumin 3.4 Triglycerides Level 76 Cholesterol Level 167 LDL Cholesterol, Calculated 114 HDL Cholesterol 38 Cholesterol/HDL Ratio 4.3 Thyroid Stimulating Hormone (TSH) 1.350 Medications Medications Current Medications Enoxaparin Sodium (Lovenox) 70 mg Q12 SC Last administered on 07/23/16 08:23; Admin Dose 70 MG; Start 07/22/16 at 17:33 Levalbuterol (Xopenex Neb) 0.63 mg Q2H PRN HHN sob; Start 07/22/16 at 18:00 Aspirin (Aspirin) 81 mg DAILY PO Last administered on 07/23/16 08:21; Admin Dose 81 MG; Start 07/23/16 at 09:00 Atorvastatin Calcium (Lipitor) 80 mg QHS PO Last administered on 07/22/16 21:00 ; Admin Dose 80 MG; Start 07/22/16 at 21:00 Carvedilol (Coreg) 12.5 mg BID PO Last administered on 07/23/16 08:21; Admin Dose 12.5 MG; Start 07/22/16 at 21:00 Lisinopril (Zestril) 5 mg DAILY PO Last administered on 07/23/16 08:21; Admin Dose 5 MG; Start 07/23/16 at 09:00 Spironolactone 25 mg 25 mg DAILY PO Last administered on 07/23/16 08:21; Admin Dose 25 MG; Start 07/23/16 at 09:00 Levofloxacin/ Dextrose (Levaquin 500mg/ D5W 100 ml (Pmx)) 100 ml @ 100 mls/hr Q24H IVPB Last administered on 07/22/16 18:49; Admin Dose 100 MLS/HR; Start 07/22/16 at 18:00 EDIL FAJARDO Jul 23, 2016 13:51
[2016-07-23] MEDS ORDERED: MAGNESIUM SULFATE 3 GM in SOD CHLORIDE 0.9% 100 ML IVPB ONE (14:00)
[2016-07-23] MEDS: ATORVASTATIN 80 MG TAB PO SCH (20:23)
[2016-07-23] MEDS: LEVOFLOXACIN 500MG/D5W (PMX) 100 ML IVPB SCH (20:23)
[2016-07-24] VITALS (7 sets, daily range): BP systolic 96–111; BP diastolic 64–67; PULSE 87–91; RESP 18–20
[2016-07-24] MEDS: LEVALBUTEROL (NEB) 0.63 MG/3 ML AMP HHN SCH ×3 (01:22→09:59)
[2016-07-24] MEDS: IPRATROPIUM (NEB) 0.5 MG/2.5 ML AMP HHN SCH ×2 (01:23→09:59)
[2016-07-24] MEDS ORDERED: ENOXAPARIN 40 MG/0.4 ML SYG SC SCH (09:00)
[2016-07-24] MEDS ORDERED: FUROSEMIDE 40 MG INJ IV SCH (09:00)
[2016-07-24] MEDS: LISINOPRIL 5 MG TAB PO SCH (09:15)
[2016-07-24] MEDS: ASPIRIN 81 MG TAB PO SCH (09:15)
[2016-07-24] MEDS: SPIRONOLACTONE 25 MG TAB PO SCH (09:16)
[2016-07-24 10:14] LABS: ADD SCAN DIFF NO
[2016-07-24 10:19] LABS: HEMATOCRIT 57.4 % (42.0-52.0); HEMOGLOBIN 19.4 g/dl (14.0-18.0); MEAN CORPUSCULAR HEMOGLOBIN 30.3 pg (29.0-33.0); MEAN CORPUSCULAR HGB CONC 33.8 g/dl (32.0-37.0); MEAN CORPUSCULAR VOLUME 89.7 fl (82.0-101.0); MEAN PLATELET VOLUME 10.2 fl (7.4-10.4); PLATELET COUNT 273 10^3/UL (140-415); RED CELL DISTRIBUTION WIDTH 13.5 % (11.5-14.5); WHITE BLOOD COUNT 6.8 10^3/ul (4.8-10.8)
[2016-07-24 10:30] LABS: CREATININE 0.97 mg/dl (0.61-1.24); POTASSIUM 3.7 mmol/L (3.5-5.1)
[2016-07-24] MEDS ORDERED: IPRA4AER INHALATION (11:17)
[2016-07-24 13:21] LABS: EOSINOPHILS # 0.2 10^3/ul (0.0-0.5); LYMPHOCYTES # 1.4 10^3/ul (0.8-2.9); MONOCYTE # 0.2 10^3/ul (0.3-0.9); NEUTROPHIL # 4.9 10^3/ul (1.6-7.5)
--- NOTE | 2016-07-24 14:40 | DS ---
Date/Time of Note Date/Time of Note DATE: 07/24/16 TIME: 14:34 Discharge Summary Admission/Discharge Info Admit Date/Time Jul 22, 2016 at 17:23 Discharge Date/Time 07/24/16 Final Diagnosis 36 yo M with 1. Acute on chronic systolic heart failure with resp distress 2. SIRS 2/2 #1 3. Cardiomyopathy, LVEF 20% - likely combination of nonischemic and ischemic Status post ICD implantation (2014) 4. Coronary artery disease - coronary angiography 2014 showed single vessel disease with COUNTER ROLLER of LAD 5. History of congenital heart disease, status post cardiac surgery during childhood - details unknown 6. Multisubstance (Tobacco / Cannabis /Methamphetamine) abuse 7. Medication noncompliance 8. COPD exacerbation Patient Condition: Stable Consults NONE . 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 I am unable to get any hx as patient is quite diaphoretic and requiring o2 by mask to maintain saturations. he however nods when asked if he still uses amphetamines and denies trying to kill himself. No other hx is obtainable. . Hospital Course Patient was admitted and agrressively diuresed. he was also put on scheduled bronchodilator therapy. He has doen well and is desirous of discharge today. Substance abuse Cessation Therapy: We discussed for greater than 3 minutes on the health risks of continued smoking, amphetamine use and medication non compliance and the benefits of cessation and this was reinforced throughout hospitalization. Patient seems aware and understanding, but was going to leave the hospital against medical advice if not discharged on time. . Comorbidities were also aggressively managed as per Med records. Patient at this time has been evaluated and examined in detail and is assessed to be in stable condition and ready for discharge. . Home Meds Active Scripts Albuterol/Ipratropium* (Combivent Respimat*) 20-100 Mcg/Inh - 4 Gm Aer.w.adap, 1 PUFF INHALATION QID, #1 INHALER Prov:EDIL FAJARDO M. 07/24/16 Furosemide* (Furosemide*) 40 Mg Tablet, 40 MG PO DAILY for 30 Days, TAB Prov:HEATH LARKIN S. 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 Pending Labs Laboratory Tests Test 07/24/16 09:59 White Blood Count 6.810^3/ul (4.8-10.8) Red Blood Count 6.4010^6/ul (4.70-6.10) Hemoglobin 19.4g/dl (14.0-18.0) Hematocrit 57.4% (42.0-52.0) Mean Corpuscular Volume 89.7fl (82.0-101.0) Mean Corpuscular Hemoglobin 30.3pg (29.0-33.0) Mean Corpuscular Hemoglobin Concent 33.8g/dl (32.0-37.0) Red Cell Distribution Width 13.5% (11.5-14.5) Platelet Count 04827^3/UL (140-415) Mean Platelet Volume 10.2fl (7.4-10.4) Neutrophils % 72.0% (39.0-77.0) Lymphocytes % 20.0% (15.0-51.0) Monocytes % 3.0% (0.0-11.0) Eosinophils % 3.0% (0.0-7.0) Metamyelocytes % 2.0% (0.0-0.0) Neutrophils # 4.910^3/ul (1.6-7.5) Lymphocytes # 1.410^3/ul (0.8-2.9) Monocytes # 0.210^3/ul (0.3-0.9) Eosinophils # 0.210^3/ul (0.0-0.5) Metamyelocytes # 0.1 Differential Comment MANUAL DIFF Sodium Level 133mmol/L (135-144) Potassium Level 3.7mmol/L (3.5-5.1) Chloride Level 98mmol/L (97-110) Carbon Dioxide Level 29mmol/L (21-31) Anion Gap 10 (8-16) Blood Urea Nitrogen 29mg/dl (7-20) Creatinine 0.97mg/dl (0.61-1.24) Glucose Level 100mg/dl (70-220) Calcium Level 9.0mg/dl (8.4-10.2) EDIL FAJARDO Jul 24, 2016 14:40
== END 2016-07-24 13:10 | disposition home or self-care (01) | DRG 291 ==
LOC: E/R 10:34 → TEL 17:23
PROVIDERS: ADMIT Family Medicine; ATTEND Family Medicine
DX: I11.0 Hypertensive heart disease with heart failure (principal); J96.01 Acute respiratory failure with hypoxia; J44.1 Chronic obstructive pulmonary disease with (acute) exacerbation; I50.23 Acute on chronic systolic (congestive) heart failure; F15.10 Other stimulant abuse, uncomplicated; F12.10 Cannabis abuse, uncomplicated; Q24.9 Congenital malformation of heart, unspecified; Z72.0 Tobacco use; Z91.14 Patient's other noncompliance with medication regimen; I42.9 Cardiomyopathy, unspecified; I25.10 Atherosclerotic heart disease of native coronary artery without angina pectoris
CPT/HCPCS: 36415; 71010; 71275; 80048; 80061; 80076; 80307; 82550; 82553; 83735; 83880; 84443; 84484; 85025; 85610; 85730; 87040; 87400; 93005; 94640; 94644; 94664; 96361; 96372; 96374; 96375; J1940; J1650; J1956; J2060; J2270; J3475; J7040; Q9967

== ENCOUNTER 2016-08-04 11:09 | Inpatient (IN) | payer MEDICAID ==
[2016-08-04] VITALS (8 sets, daily range): BP systolic 103–128; BP diastolic 68–85; PULSE 92–112; RESP 17–20; Ht 172.7 cm; Wt 73.6 kg
[~2016-08-04] VITALS: Ht 172.7 cm; Wt 73.6 kg
[~2016-08-04 11:09] MED LIST changes: +IPRA4AER INHALATION
[2016-08-04 12:04] LABS: ADD SCAN DIFF NO
--- NOTE | 2016-08-04 12:06 | RADRPT ---
PROCEDURE: Chest x-ray CLINICAL INDICATION: Shortness of breath TECHNIQUE: Chest single view COMPARISON: 07/22/2016 FINDINGS: As before there is left chest AICD. Stable moderate cardiomegaly seen. There is interval developme nt of mild CHF. No confluent pneumonias identified. Costophrenic angles are sharp. IMPRESSION: 1. Moderate cardiomegaly with interval development of mild CHF. 2. Left chest AICD RPTAT: HH .Santo Coleman MD, Date Time Electronically viewed and signed by .Santo Coleman MD, on 08/04/2016 12:06 .W/
[2016-08-04 12:09] LABS: BASOPHIL # 0.1 10^3/ul (0.0-0.1); BASOPHILS % 0.7 % (0.0-2.0); EOSINOPHILS # 0.1 10^3/ul (0.0-0.5); EOSINOPHILS % 0.8 % (0.0-7.0); HEMATOCRIT 50.5 % (42.0-52.0); HEMOGLOBIN 16.4 g/dl (14.0-18.0); LYMPHOCYTES % 35.7 % (15.0-51.0); MEAN CORPUSCULAR HGB CONC 32.5 g/dl (32.0-37.0); MEAN CORPUSCULAR VOLUME 92.5 fl (82.0-101.0); MEAN PLATELET VOLUME 10.5 fl (7.4-10.4); MONOCYTE # 0.5 10^3/ul (0.3-0.9); MONOCYTES % 6.1 % (0.0-11.0); NEUTROPHIL # 4.7 10^3/ul (1.6-7.5); NEUTROPHILS % 56.5 % (39.0-77.0); PLATELET COUNT 274 10^3/UL (140-415); RED BLOOD COUNT 5.46 10^6/ul (4.70-6.10); RED CELL DISTRIBUTION WIDTH 14.8 % (11.5-14.5); WHITE BLOOD COUNT 8.3 10^3/ul (4.8-10.8)
--- NOTE | 2016-08-04 12:20 | ERA ---
ER Documentation Chief Complaint Date/Time DATE: 08/04/16 TIME: 12:18 Chief Complaint sob since last pm. No relief from inhaler. HPI The patient is a 36-year-old male, presenting to the ER because of acute dyspnea that began last night. He has been using amphetamine. He was treated with albuterol inhaler by EMS with some response. He has similar symptoms previously. He was recently admitted about 2 weeks ago for CHF exacerbation. He denies fever, chills, syncope, near syncope, neck pain, chest pain, abdominal pain, vomiting, dysuria, diarrhea. He smokes and does illicit drugs Past medical history: Dyslipidemia, history of CHF, cardiomyopathy with low EF of 20%, COPD, CAD Past surgical history: AICD ROS All systems reviewed and are negative except as per history of present illness. Medications Home Meds Active Scripts Albuterol/Ipratropium* (Combivent Respimat*) 20-100 Mcg/Inh - 4 Gm Aer.w.adap, 1 PUFF INHALATION QID, #1 INHALER Prov:EDIL FAJARDO 07/24/16 Furosemide* (Furosemide*) 40 Mg Tablet, 40 MG PO DAILY for 30 Days, TAB Prov:HEATH LARKIN 05/15/16 Lisinopril* (Lisinopril*) 5 Mg Tablet, 5 MG PO DAILY for 30 Days, TAB Prov:MARINA DELGADO MD 05/05/16 Spironolactone* (Aldactone*) 5 Mg/Ml (COMPOUNDED) Susp, 25 MG PO DAILY for 30 Days Prov:MARINA DELGADO MD 05/05/16 Reported Medications Carvedilol* (Carvedilol*) 12.5 Mg Tablet, 12.5 MG PO BID, #60 TAB 10/05/15 Atorvastatin* (Atorvastatin*) 80 Mg Tablet, 80 MG PO QHS, #30 TAB 10/05/15 Aspirin* (Aspirin* Chew) 81 Mg Tab.chew, 81 MG PO DAILY, TAB.CHEW 10/05/15 Allergies Allergies: Coded Allergies: No Known Allergy (Unverified , 08/04/16) PMhx/Soc History of Surgery: Yes (open heart 1991) Anesthesia Reaction: No Hx Neurological Disorder: No Hx Respiratory Disorders: No Hx Cardiac Disorders: Yes (CHF, CAD, HTN, Pacemaker) Hx Psychiatric Problems: No Hx Miscellaneous Medical Probl: No Hx Alcohol Use: No Hx Substance Use: Yes (Methamphetamine and Marijuana) Hx Tobacco Use: No Physical Exam Vitals Vital Signs Date Time Temp Pulse Resp B/P Pulse Ox O2 Delivery O2 Flow Rate FiO2 08/04/16 12:17 Nasal Cannula 2.0 08/04/16 12:17 100 18 116/92 100 Nasal Cannula 2.0 08/04/16 12:17 Nasal Cannula 2 08/04/16 11:20 97.6 100 22 131/101 100 Physical Exam Const: No acute distress. Head: Atraumatic. Eyes: Normal Conjunctiva. ENT: Normal External Ears, Nose and Mouth. Neck: Full range of motion. No meningismus. Resp: Bibasilar crackle Cardio: Regular rate and rhythm, no murmurs. Abd: Soft, non distended, normal bowel sounds, non tender. Skin: No petechiae or rashes. Back: No midline or flank tenderness. Ext: No cyanosis, or edema. Neur: Awake and alert. No focal deficit Psych: Normal Mood and Affect. Result Diagram: 08/04/16 1155 08/04/16 1155 Results 24 hrs Laboratory Tests Test 08/04/16 11:55 08/04/16 12:00 White Blood Count 8.310^3/ul Red Blood Count 5.4610^6/ul Hemoglobin 16.4g/dl Hematocrit 50.5% Mean Corpuscular Volume 92.5fl Mean Corpuscular Hemoglobin 30.0pg Mean Corpuscular Hemoglobin Concent 32.5g/dl Red Cell Distribution Width 14.8% Platelet Count 46109^3/UL Mean Platelet Volume 10.5fl Neutrophils % 56.5% Lymphocytes % 35.7% Monocytes % 6.1% Eosinophils % 0.8% Basophils % 0.7% Nucleated Red Blood Cells % 0.0/100WBC Neutrophils # 4.710^3/ul Lymphocytes # 3.010^3/ul Monocytes # 0.510^3/ul Eosinophils # 0.110^3/ul Basophils # 0.110^3/ul Nucleated Red Blood Cells # 0.010^3/ul Prothrombin Time 14.0Sec Prothrombin Time Ratio 1.1 INR International Normalized Ratio 1.08 Activated Partial Thromboplast Time 29.3Sec Sodium Level 138mmol/L Potassium Level 4.0mmol/L Chloride Level 106mmol/L Carbon Dioxide Level 22mmol/L Anion Gap 14 Blood Urea Nitrogen 23mg/dl Creatinine 0.71mg/dl Glucose Level 108mg/dl Calcium Level 9.1mg/dl Troponin I 0.052ng/ml B-Type Natriuretic Peptide 6650PG/ML Ethyl Alcohol Level < 10.0mg/dl Urine Opiates Screen Negative Urine Barbiturates Negative Urine Amphetamines Screen Positive Urine Benzodiazepines Screen Negative Urine Cocaine Screen Negative Urine Cannabinoids Positive Current Medications Medications (Trade) Dose Ordered Sig/Gayle Route PRN Reason Start Time Stop Time Status Last Admin Dose Admin Furosemide (Lasix) 40 mg ONCE ONCE IV 08/04/16 12:30 08/04/16 12:37 DC 08/04/16 12:30 Procedures/MDM EKG: Read by emergency physician at 11:58 PM Rate/Rhythm: Sinus tachycardia 100 beats/min QRS, ST, T-waves: No ST elevation, no T inversion, right atrial enlargement, right bundle branch block, left anterior fascicular block, LVH, lateral T abnormality Impression: Abnormal EKG EKG: Read by emergency physician at 12:24 PM Rate/Rhythm: Normal Sinus Rhythm 90 beats/min QRS, ST, T-waves: No ST elevation, no T inversion, low voltage Impression: Abnormal EKG [place] [id number] Radiology Main Line: [phone] DIAGNOSTIC IMAGING REPORT Patient: MASTER BRUMFIELD : 1980 Age: 36 Sex: M MR #: [id number] DOS: 08/04/16 1126 Ordering MD: KENIA MAYA MD Location: E/R Room/Bed: PROCEDURE: Chest x-ray CLINICAL INDICATION: Shortness of breath TECHNIQUE: Chest single view COMPARISON: 07/22/2016 FINDINGS: As before there is left chest AICD. Stable moderate cardiomegaly seen. There is interval development of mild CHF. No confluent pneumonias identified. Costophrenic angles are sharp. IMPRESSION: 1. Moderate cardiomegaly with interval development of mild CHF. 2. Left chest AICD RPTAT: HH .Santo Coleman MD, Date Time Electronically viewed and signed by .Santo Coleman MD, on 08/04/2016 12:06 .W/ CC: KENIA MAYA MD MEDICAL MAKING DECISION: The patient is a 36-year-old male, presenting with acute CHF exacerbation, acute amphetamine abuse. He was treated with Lasix 40 mg IV with good response. The differential diagnoses considered include but are not limited to asthma, COPD, pneumonia, pulmonary embolus, pleural effusion, congestive heart failure. Critical Care: Time: 35 minutes excluding all billable procedures. Treatments/Evaluations: Close monitoring and treatment of unstable vital signs, cardiorespiratory, and neurologic status, while maintaining tight balance of fluid, respiratory, and cardiac interventions. Departure Diagnosis: Primary Impression: CHF (congestive heart failure) Additional Impression: Amphetamine abuse Condition: Stable Comments I discussed the findings with the patient. I discussed the patient with the on- call hospitalist Dr. Fajardo. who was made aware of the lab, the treatment, the patient condition. The patient is admitted to telemetry at 1:25 PM KENIA MAYA MD Aug 04, 2016 12:20
[2016-08-04 12:21] LABS: CHLORIDE 106 mmol/L (97-110)
[2016-08-04 12:22] LABS: SODIUM 138 mmol/L (135-144)
[2016-08-04 12:22] LABS: BARBITURATES Negative (NEGATIVE); BENZODIAZEPINES Negative (NEGATIVE); CANNABINOIDS Positive (NEGATIVE); COCAINE Negative (NEGATIVE); OPIATES Negative (NEGATIVE)
[2016-08-04 12:24] LABS: CREATININE 0.71 mg/dl (0.61-1.24)
[2016-08-04 12:25] LABS: ANION GAP 14 (8-16); BLOOD UREA NITROGEN 23 mg/dl (7-20); CALCIUM 9.1 mg/dl (8.4-10.2); CARBON DIOXIDE 22 mmol/L (21-31); GLUCOSE 108 mg/dl (70-220)
[2016-08-04 12:26] LABS: INR 1.08; PT RATIO 1.1
[2016-08-04 12:27] LABS: PARTIAL THROMBOPLASTIN TIME 29.3 Sec (25.0-35.0)
[2016-08-04] MEDS ORDERED: FUROSEMIDE 40 MG INJ IV ONE (12:30)
[2016-08-04 12:34] LABS: B-TYPE NATRIURETIC PEPTIDE 6650 PG/ML (0-125)
[2016-08-04 12:37] LABS: TROPONIN-I 0.052 ng/ml (0.00-0.12)
[2016-08-04 12:49] LABS: ETHANOL < 10.0 mg/dl
[2016-08-04] MEDS ORDERED: ALBUTEROL/IPRATROPIUM (NEB) 3 ML AMP HHN PRN (14:30)
[2016-08-04] MEDS ORDERED: NITROGLYCERIN (SL) 0.4 MG TAB SL PRN (14:30)
[2016-08-04] MEDS ORDERED: ONDANSETRON 4 MG INJ IV PRN (14:30)
[2016-08-04] MEDS ORDERED: NACL 0.9% 3 ML SYG IV SCH (14:30)
[2016-08-04] MEDS ORDERED: ACETAMINOPHEN 325 MG TAB PO PRN (14:30)
[2016-08-04] MEDS ORDERED: NON-FORMULARY/PATIENT OWN MED (Albuterol/Ipratropium* (Combivent Respimat*) 1 PUFF) INHALATION SCH (14:30)
[2016-08-04] MEDS ORDERED: morphine 2 MG INJ IV PRN (14:30)
--- NOTE | 2016-08-04 15:18 | HP ---
DATE OF ADMISSION: 08/04/2016 CHIEF COMPLAINT: Shortness of breath. HISTORY OF PRESENT ILLNESS: The patient is a 36-year-old male with a history of hypertension, CHF, coronary artery disease, pacemaker, history of cardiomyopathy with severe systolic dysfunction with an EF of 20%, stage IV diastolic dysfunction, history of congenital heart disease status post surger y during childhood, methamphetamine and marijuana abuse, who presented to the emergency department w [facility] a chief complaint of shortness of breath. He stated the shortness of breath has been going on s kurt last night. He denied any chest pain, nausea, vomiting, fever or chills. He was treated with albuterol by EMS with some improvement in symptoms. The patient was admitted here recently and was actually discharged less than 2 weeks ago after he initially presented with shortness of breath. At that time, the patient was aggressively diuresed and received breathing treatments and was subseque ntly discharged. Of note, at the time of discharge, the patient was threatening to leave against me dical advice if he was not to be discharged When the patient presented to the ER today, blood press ure 130/101, heart rate 100, respiratory rate 22, temperature 97.6, oxygen saturation 100%. Laborat ory values show a BUN of 23, otherwise CBC and BMP are within normal limits. His BNP is 6650. Ches t x-ray shows moderate cardiomegaly and as compared to the chest x-ray 2 weeks ago, shows interval d evelopment of mild congestive heart failure. The patient was given 40 mg of IV Lasix and currently awaiting admission to telemetry unit. REVIEW OF SYSTEMS: A 12-point review of systems was performed and negative except as mentioned in H PI. PAST MEDICAL HISTORY: As per HPI. PAST SURGICAL HISTORY: ICD placement and cardiac surgery as a child for congenital heart disease. SOCIAL HISTORY: Marijuana and amphetamine use. ALLERGIES: NO KNOWN DRUG ALLERGIES. HOME MEDICATIONS: 1. Albuterol. 2. Atrovent. 3. Lipitor. 4. Coreg. 5. Lisinopril. 6. Aldactone. 7. Aspirin. 8. Lasix. PHYSICAL EXAMINATION: VITAL SIGNS: Blood pressure 116/92, heart rate 100, respiratory rate 18, temperature earlier was 97 .6, oxygen saturation 100% on 2 liters. GENERAL: No acute distress, does show some sign of respiratory distress but overall stable. HEENT: No obvious head deformity. Pupils reactive to light. Extraocular movements intact. CARDIOVASCULAR: Tachycardic with regular rhythm. LUNGS: Diminished breath sounds with scattered crackles. ABDOMEN: Soft, nontender, nondistended. Positive bowel sounds. EXTREMITIES: No edema. LABORATORY DATA: Pertinent positives results as mentioned in the HPI. IMAGING: Chest x-ray with results as mentioned in the HPI. IMPRESSION: 1. Congestive heart failure exacerbation. 2. History of coronary artery disease. 3. History of cardiomyopathy with severe systolic dysfunction with EF of 20%. 4. Stage IV diastolic dysfunction. 5. History of congenital heart disease, status post surgery as a child. 6. Methamphetamine and marijuana abuse. 7. ICD placement. 8. Hypertension, currently blood pressure at goal. PLAN: We will admit to telemetry unit. He will be placed on IV Lasix. Strict ins and outs and chase l monitor his urine output. We will continue his home medications which include Lipitor, Coreg, li sinopril, Aldactone, aspirin as well as albuterol/Atrovent. We will adjust his medications as shayy samayoa. Further workup and management will be per clinical course. Dictated By: LYNDSEY CARLIN/SARAH Conf#: [id number] DID#: [id number]
[2016-08-04] MEDS: ATORVASTATIN 80 MG TAB PO SCH (20:59)
[2016-08-05] VITALS (10 sets, daily range): BP systolic 97–150; BP diastolic 56–85; PULSE 88–94; RESP 18–20
[2016-08-05] MEDS ORDERED: FUROSEMIDE 20 MG INJ IV ONE (05:00)
[2016-08-05 07:20] LABS: ADD SCAN DIFF NO
[2016-08-05 07:25] LABS: BASOPHIL # 0.1 10^3/ul (0.0-0.1); BASOPHILS % 0.8 % (0.0-2.0); EOSINOPHILS # 0.1 10^3/ul (0.0-0.5); EOSINOPHILS % 1.4 % (0.0-7.0); HEMATOCRIT 50.5 % (42.0-52.0); HEMOGLOBIN 16.2 g/dl (14.0-18.0); LYMPHOCYTES # 2.5 10^3/ul (0.8-2.9); LYMPHOCYTES % 25.8 % (15.0-51.0); MEAN CORPUSCULAR HEMOGLOBIN 29.8 pg (29.0-33.0); MEAN CORPUSCULAR HGB CONC 32.1 g/dl (32.0-37.0); MEAN CORPUSCULAR VOLUME 92.8 fl (82.0-101.0); MEAN PLATELET VOLUME 10.3 fl (7.4-10.4); MONOCYTE # 0.6 10^3/ul (0.3-0.9); MONOCYTES % 6.2 % (0.0-11.0); NEUTROPHIL # 6.4 10^3/ul (1.6-7.5); NEUTROPHILS % 65.6 % (39.0-77.0); PLATELET COUNT 272 10^3/UL (140-415); RED BLOOD COUNT 5.44 10^6/ul (4.70-6.10); RED CELL DISTRIBUTION WIDTH 14.8 % (11.5-14.5); WHITE BLOOD COUNT 9.7 10^3/ul (4.8-10.8)
[2016-08-05 07:38] LABS: ALBUMIN 3.1 g/dl (3.3-4.9)
[2016-08-05 07:39] LABS: POTASSIUM 3.4 mmol/L (3.5-5.1)
[2016-08-05 07:40] LABS: CREATININE 0.96 mg/dl (0.61-1.24)
[2016-08-05 07:41] LABS: ALBUMIN/GLOBULIN RATIO 0.91; BILIRUBIN,INDIRECT 1.1 mg/dl (0-1.1); BILIRUBIN,TOTAL 1.1 mg/dl (0.2-1.3); TOTAL PROTEIN 6.5 g/dl (6.1-8.1)
[2016-08-05 07:42] LABS: CALCIUM 8.9 mg/dl (8.4-10.2); MAGNESIUM 1.5 mg/dl (1.7-2.5)
[2016-08-05 07:53] LABS: TROPONIN-I 0.047 ng/ml (0.00-0.12)
[2016-08-05] MEDS: SPIRONOLACTONE 25 MG TAB PO SCH (08:15)
[2016-08-05] MEDS: LISINOPRIL 5 MG TAB PO SCH (08:15)
[2016-08-05] MEDS: ASPIRIN 81 MG TAB PO SCH (08:15)
[2016-08-05] MEDS: FUROSEMIDE 40 MG INJ IV SCH (08:15)
[2016-08-05] MEDS: ENOXAPARIN 40 MG/0.4 ML SYG SC SCH (08:16)
--- NOTE | 2016-08-05 09:06 | RADRPT ---
Vent Rate: 96 bpm RR Interval: 0 msec MD Interval: 188 msec QRS Duration: 154 msec QT Interval: 412 msec QTC Interval: 520 msec P-R-T [place]: 32 - -47 - 88 degrees Normal sinus rhythm Possible Left atrial enlargement Right bundle branch block Left anterior fascicular block Bifascicular block Left ventricular hypertrophy Anterior infarct , age undetermined T wave abnormality, consider lateral ischemia Abnormal ECG Electronically Signed By: Dino Herrera [phone]
--- NOTE | 2016-08-05 19:36 | PN ---
Date/Time of Note Date/Time of Note DATE: 08/05/16 TIME: 19:35 Assessment/Plan VTE Prophylaxis VTE Prophylaxis Intervention: heparin Lines/Catheters IV [facility] Saline Lock Urinary Cath still in place: No Assessment/Plan Assessment/Plan IMPRESSION: 1. Congestive heart failure exacerbation. 2. History of coronary artery disease. 3. History of cardiomyopathy with severe systolic dysfunction with EF of 20%. 4. Stage IV diastolic dysfunction. 5. History of congenital heart disease, status post surgery as a child. 6. Methamphetamine and marijuana abuse. 7. ICD placement. 8. Hypertension, currently blood pressure at goal. PLAN: Cont telemetry monitoring. Cont IV Lasix. Strict ins and outs and will monitor his urine output. Will continue his home medications which include Lipitor, Coreg, lisinopril, Aldactone, aspirin as well as albuterol/Atrovent. Will adjust his medications as needed. Further workup and management will be per clinical course. Subjective 24 Hr Interval Summary Free Text/Dictation shortness of breath improved Exam/Review of Systems Vital Signs Vitals Vital Signs Date Time Temp Pulse Resp B/P Pulse Ox O2 Delivery O2 Flow Rate FiO2 08/05/16 16:06 97.4 87 19 97/56 99 08/05/16 13:47 2.0 08/05/16 08:00 Nasal Cannula Intake and Output 08/04/16 08/04/16 08/05/16 15:00 23:00 07:00 Intake Total 200 ml Output Total 400 ml Balance -200 ml Exam GENERAL: No acute distress, does show some sign of respiratory distress but overall stable. HEENT: No obvious head deformity. Pupils reactive to light. Extraocular movements intact. CARDIOVASCULAR: Tachycardic with regular rhythm. LUNGS: Diminished breath sounds with scattered crackles. ABDOMEN: Soft, nontender, nondistended. Positive bowel sounds. EXTREMITIES: No edema. Results Result Diagram: 08/05/16 0710 08/05/16 0710 Results 24 hrs Laboratory Tests Test 08/05/16 07:10 White Blood Count 9.7 Red Blood Count 5.44 Hemoglobin 16.2 Hematocrit 50.5 Mean Corpuscular Volume 92.8 Mean Corpuscular Hemoglobin 29.8 Mean Corpuscular Hemoglobin Concent 32.1 Red Cell Distribution Width 14.8 H Platelet Count 272 Mean Platelet Volume 10.3 Neutrophils % 65.6 Lymphocytes % 25.8 Monocytes % 6.2 Eosinophils % 1.4 Basophils % 0.8 Nucleated Red Blood Cells % 0.0 Neutrophils # 6.4 Lymphocytes # 2.5 Monocytes # 0.6 Eosinophils # 0.1 Basophils # 0.1 Nucleated Red Blood Cells # 0.0 Sodium Level 136 Potassium Level 3.4 L Chloride Level 100 Carbon Dioxide Level 28 Anion Gap 11 Blood Urea Nitrogen 21 H Creatinine 0.96 Glucose Level 107 Calcium Level 8.9 Magnesium Level 1.5 L Total Bilirubin 1.1 Direct Bilirubin 0.00 Indirect Bilirubin 1.1 Aspartate Amino Transf (AST/SGOT) 38 Alanine Aminotransferase (ALT/SGPT) 52 Alkaline Phosphatase 89 Troponin I 0.047 Total Protein 6.5 Albumin 3.1 L Globulin 3.40 H Albumin/Globulin Ratio 0.91 Medications Medications Current Medications Ondansetron HCl (Zofran Inj) 4 mg Q6H PRN IV NAUSEA AND/OR VOMITING; Start at 14:30 Furosemide (Lasix) 40 mg DAILY IV Last administered on 08/05/16 08:15; Admin Dose 40 MG; Start 08/05/16 at 09:00 Nitroglycerin (Nitroglycerin (Sl Tab) 0.4 Mg) 1 tab Q5M PRN SL CHEST PAIN; Start 08/04/16 at 14:30 Acetaminophen (Tylenol Tab) 650 mg Q6H PRN PO PAIN LEVEL 1-3 OR FEVER; Start at 14:30 Morphine Sulfate (morphine) 2 mg Q4H PRN IV PAIN LEVEL 7-10; Start 08/04/16 at 14:30 Enoxaparin Sodium (Lovenox) 40 mg DAILY SC Last administered on 08/05/16 08:16 ; Admin Dose 40 MG; Start 08/05/16 at 09:00 Aspirin (Aspirin) 81 mg DAILY PO Last administered on 08/05/16 08:15; Admin Dose 81 MG; Start 08/05/16 at 09:00 Atorvastatin Calcium (Lipitor) 80 mg QHS PO Last administered on 08/04/16 20: 59; Admin Dose 80 MG; Start 08/04/16 at 21:00 Carvedilol (Coreg) 12.5 mg BID PO Last administered on 08/05/16 08:15; Admin Dose 12.5 MG; Start 08/04/16 at 21:00 Lisinopril (Zestril) 5 mg DAILY PO Last administered on 08/05/16 08:15; Admin Dose 5 MG; Start 08/05/16 at 09:00 Spironolactone (Aldactone) 25 mg DAILY PO Last administered on 08/05/16 08:15 ; Admin Dose 25 MG; Start 08/05/16 at 09:00 LYNDSEY BAUTISTA MD Aug 05, 2016 19:36
[2016-08-05] MEDS: ATORVASTATIN 80 MG TAB PO SCH (20:56)
[2016-08-05] MEDS ORDERED: ZOLPIDEM 5 MG TAB PO PRN (21:00)
[2016-08-06] VITALS (8 sets, daily range): BP systolic 82–129; BP diastolic 57–85; PULSE 83–95; RESP 15–18
[2016-08-06] MEDS: FUROSEMIDE 40 MG INJ IV SCH (08:34)
[2016-08-06] MEDS: SPIRONOLACTONE 25 MG TAB PO SCH (08:34)
[2016-08-06] MEDS: LISINOPRIL 5 MG TAB PO SCH (08:34)
[2016-08-06] MEDS: ASPIRIN 81 MG TAB PO SCH (08:34)
[2016-08-06] MEDS: ENOXAPARIN 40 MG/0.4 ML SYG SC SCH (08:38)
--- NOTE | 2016-08-06 15:28 | PDOCDIS ---
Discharge Instructions CONDITION Patient Condition: Stable HOME CARE INSTRUCTIONS: Special Diet: 2 gram sodium, low fat low cholesterol ACTIVITY: Activity Restrictions: Slowly Increase Activity FOLLOW UP/APPOINTMENTS Appointments follow-up with primary care Doctor and Cardiology OTHER ORDERS: Other Orders: Call 911 and go to the nearest ER for Chest pain, shortness of breath, palpitations, lightheadedness LYNDSEY BAUTISTA MD Aug 06, 2016 15:28
== END 2016-08-06 16:40 | disposition home or self-care (01) | DRG 293 ==
LOC: E/R 11:09 → MS4 13:23
PROVIDERS: ADMIT Family Medicine; ATTEND Family Medicine
DX: I11.0 Hypertensive heart disease with heart failure (principal); F15.10 Other stimulant abuse, uncomplicated; I50.43 Acute on chronic combined systolic (congestive) and diastolic (congestive) heart failure; I25.10 Atherosclerotic heart disease of native coronary artery without angina pectoris; F12.10 Cannabis abuse, uncomplicated; Z95.810 Presence of automatic (implantable) cardiac defibrillator; Z87.74 Personal history of (corrected) congenital malformations of heart and circulatory system; Z79.82 Long term (current) use of aspirin
CPT/HCPCS: 36415; 71010; 80048; 80053; 80306; 80307; 83735; 83880; 84484; 85025; 85610; 85730; 93005; 94640; 96374; J1940; J1650

== ENCOUNTER 2016-09-20 13:14 | Inpatient (IN) | payer MEDICAID ==
[~2016-09-20] VITALS: Ht 172.7 cm; Wt 75.0 kg
[2016-09-20 14:13] LABS: ADD SCAN DIFF NO
[2016-09-20 14:14] LABS: BASOPHIL # 0.1 10^3/ul (0.0-0.1); BASOPHILS % 0.9 % (0.0-2.0); EOSINOPHILS # 0.1 10^3/ul (0.0-0.5); EOSINOPHILS % 1.4 % (0.0-7.0); HEMATOCRIT 49.5 % (42.0-52.0); HEMOGLOBIN 16.3 g/dl (14.0-18.0); LYMPHOCYTES # 2.4 10^3/ul (0.8-2.9); LYMPHOCYTES % 29.9 % (15.0-51.0); MEAN CORPUSCULAR HEMOGLOBIN 30.5 pg (29.0-33.0); MEAN CORPUSCULAR HGB CONC 32.9 g/dl (32.0-37.0); MEAN CORPUSCULAR VOLUME 92.5 fl (82.0-101.0); MEAN PLATELET VOLUME 10.5 fl (7.4-10.4); MONOCYTE # 0.4 10^3/ul (0.3-0.9); MONOCYTES % 5.1 % (0.0-11.0); NEUTROPHILS % 62.3 % (39.0-77.0); PLATELET COUNT 278 10^3/UL (140-415); RED BLOOD COUNT 5.35 10^6/ul (4.70-6.10); RED CELL DISTRIBUTION WIDTH 14.1 % (11.5-14.5); WHITE BLOOD COUNT 8.1 10^3/ul (4.8-10.8)
[2016-09-20] MEDS ORDERED: LIDOCAINE 2%/EPI MPF (SDV) 20 ML VIAL INJ ONE (14:30)
[2016-09-20 14:32] LABS: INR 0.99; PROTIME 13.1 Sec (12.2-14.2)
[2016-09-20 14:33] LABS: PARTIAL THROMBOPLASTIN TIME 30.9 Sec (25.0-35.0)
[2016-09-20 14:34] LABS: ANION GAP 11 (8-16); BLOOD UREA NITROGEN 30 mg/dl (7-20); CALCIUM 8.9 mg/dl (8.4-10.2); CARBON DIOXIDE 28 mmol/L (21-31); CHLORIDE 106 mmol/L (97-110); CREATININE 0.95 mg/dl (0.61-1.24); GLUCOSE 119 mg/dl (70-220); POTASSIUM 3.6 mmol/L (3.5-5.1); SODIUM 141 mmol/L (135-144)
[2016-09-20 14:46] LABS: B-TYPE NATRIURETIC PEPTIDE 2390 PG/ML (0-125)
[2016-09-20 14:48] LABS: TROPONIN-I < 0.012 ng/ml (0.00-0.12)
--- NOTE | 2016-09-20 14:54 | RADRPT ---
PROCEDURE: XR Chest. CLINICAL INDICATION: Chest Pain.. Syncope. Trauma. TECHNIQUE: Single frontal chest x-ray. COMPARISON: 08/04/2016 FINDINGS: The lungs are clear of acute infiltrates, edema, effusions, or masses. Sternotomy wires with left-si ded single chamber AICD in place.. Cardiomegaly is present unchanged.. The osseous structures are i ntact. IMPRESSION: No acute cardiopulmonary disease. Cardiomegaly with left-sided AICD. RPTAT: QQ .Shashi Matthews MD, MD Date Time Electronically viewed and signed by .Shashi Matthews MD, MD on 09/20/2016 14:53 .L/
[2016-09-20 15:01] LABS: CREATINE KINASE 49 IU/L (23-200)
--- NOTE | 2016-09-20 15:04 | RADRPT ---
PROCEDURE: CT Brain without IV contrast. CLINICAL INDICATION: Syncope. Fall. Scalp laceration. . TECHNIQUE: A CT of the brain was performed on multislice CT scanner with axial sections from the s kull base through the vertex without contrast. The scan was reviewed in soft tissue brain and high frequency resolution bone algorithm windows. Images were reviewed on a high-resolution PACS worksta tion. DLP: 810.3 mGy-cm. CTDIvol: 45 mGy. One or more of the following dose reduction techniques were used: Automated exposure control. Adjustment of the mA and/or kV according to patient size. Use of iterative reconstruction technique. COMPARISON: None available FINDINGS: The ventricles and sulci are symmetric and normal in size and morphology. There is no evidence of in tracranial hemorrhage, mass effect, edema or midline shift. No abnormal intra-axial or extra-axial f luid collections are seen. Brainstem and posterior fossa structures are unremarkable. Visualized par anasal sinuses are unremarkable. There is a left parietal scalp swelling and hematoma. The skull a ppears intact.. IMPRESSION: 1. No acute intracranial pathology. 2. Left parietal scalp swelling and hematoma. RPTAT: QQ .Shashi Matthews MD, Date Time Electronically viewed and signed by .Shashi Matthews MD, on 09/20/2016 15:04 .L/
[2016-09-20 15:13] LABS: CK-MB 1.26 ng/ml (0.0-2.4)
--- NOTE | 2016-09-20 15:27 | RADRPT ---
PROCEDURE: CT cervical spine without contrast CLINICAL INDICATION: Trauma TECHNIQUE: CT scan of the cervical spine was performed . No IV contrast was administered. Dunlap l and sagittal reformatted images were obtained from the axial source images. Images were reviewed o n a high-resolution PACS workstation. The calculated radiation dose measures 524.8 mGy centimeters. The CTDI measures 22.7 mGy. One or more of the following dose reduction techniques were used: - Automated exposure control. - Adjustment of the mA and/or kV according to patient size . - Use of iterative reconstruction technique. COMPARISON: None available FINDINGS: There is reversal of the normal cervical lordosis. There is mild to moderate loss of vertebral body height at C6, with chronic appearance. Multilevel degenerative disk disease seen most pronounced at C5-C6 and C6-C7 noting moderate disk space narrowing and endplate irregularity. Disk osteophyte co mplex formation is seen at multiple levels. The osseous central canal appears patent. The posterio r elements are intact. Uncovertebral joint osteophytes are present at multiple levels resulting in n eural foraminal stenosis most pronounced at C5-C6 on the left noting moderate to severe left neural foraminal stenosis. There is asymmetric widening between the dens and lateral mass of C1 on the left compared to the rig ht, related to position or may be seen with fixed rotator subluxation, the patient is unable to turn their head. The paraspinal soft tissues are within normal limits. Pacemaker leads are partially visualized. Th e lung apices are clear. IMPRESSION: 1. Reversal of the normal cervical lordosis related to paraspinal muscle spasm or position. 2. Asymmetry between the dens and the lateral masses of C1, with increased space on the left, which is likely from position or may be seen with fixed rotatory subluxation, if there is limited range o f motion in this region. 3. No evidence for an acute vertebral body fracture. 4. No acute osseous abnormality. 5. Multilevel degenerative disk disease most pronounced at C5-C6 and C6-C7 noting moderate disk spa ce narrowing. 6. Multilevel neural foraminal stenosis most pronounced at C5-C6 noting moderate to severe left bo ral foraminal stenosis. RPTAT: EE .Pavel Guaman MD, MD Date Time Electronically viewed and signed by .Pavel Guaman MD, MD on 09/20/2016 15:26 .d/
[2016-09-20] MEDS ORDERED: ONDANSETRON 4 MG INJ IV PRN (18:30)
[2016-09-20] MEDS ORDERED: ACETAMINOPHEN 325 MG TAB PO PRN ×2 (18:30→19:30)
--- NOTE | 2016-09-20 18:55 | ERA ---
ER Documentation Chief Complaint Date/Time DATE: 09/20/16 TIME: 18:52 Chief Complaint Syncope HPI 36-year-old male brought in by paramedics after he was walking in a shopping center suddenly fell and lacerated his head. States that he felt lightheaded and the next thing he remembers there were people standing over him. He does not have any seizure history. He does have a history of coronary artery disease and has a pacemaker. He denies alcohol or drug use. Denies having any chest pain or shortness of breath today. Currently states that he feels tired and has pain in the back of his head. ROS All systems reviewed and are negative except as per history of present illness. Medications Home Meds Active Scripts Albuterol/Ipratropium* (Combivent Respimat*) 20-100 Mcg/Inh - 4 Gm Aer.w.adap, 1 PUFF INHALATION QID, #1 INHALER Prov:EDIL FAJARDO 07/24/16 Furosemide* (Furosemide*) 40 Mg Tablet, 40 MG PO DAILY for 30 Days, TAB Prov:HEATH LARKIN 05/15/16 Lisinopril* (Lisinopril*) 5 Mg Tablet, 5 MG PO DAILY for 30 Days, TAB Prov:MARINA DELGADO MD 05/05/16 Spironolactone* (Aldactone*) 5 Mg/Ml (COMPOUNDED) Susp, 25 MG PO DAILY for 30 Days Prov:MARINA DELGADO MD 05/05/16 Reported Medications Carvedilol* (Carvedilol*) 12.5 Mg Tablet, 12.5 MG PO BID, #60 TAB 10/05/15 Atorvastatin* (Atorvastatin*) 80 Mg Tablet, 80 MG PO QHS, #30 TAB 10/05/15 Aspirin* (Aspirin* Chew) 81 Mg Tab.chew, 81 MG PO DAILY, TAB.CHEW 10/05/15 Allergies Allergies: Coded Allergies: No Known Allergy (Unverified , 08/04/16) PMhx/Soc History of Surgery: Yes (REPAIRED HOLE IN HEART) Anesthesia Reaction: No Hx Neurological Disorder: No Hx Respiratory Disorders: Yes (ASTHMA) Hx Cardiac Disorders: Yes Hx Psychiatric Problems: No Hx Miscellaneous Medical Probl: No Hx Alcohol Use: No Hx Substance Use: No Hx Tobacco Use: No Smoking Status: Never smoker Physical Exam Vitals Vital Signs Date Time Temp Pulse Resp B/P Pulse Ox O2 Delivery O2 Flow Rate FiO2 09/20/16 18:18 97.8 101 17 107/66 100 Nasal Cannula 4.0 09/20/16 16:20 99 17 90/67 100 Room Air 09/20/16 13:46 98.6 99 18 106/73 99 09/20/16 13:36 99 18 106/73 99 Physical Exam Const: [] No distress Head: Large hematoma to the left posterior scalp with macerated 4 cm laceration, mild active bleeding Eyes: Normal Conjunctiva, EOMI, EMERSON ENT: Normal External Ears, Nose and Mouth. Neck: Full range of motion..~ No meningismus. Resp: Clear to auscultation bilaterally Cardio: Regular rate and rhythm, no murmurs Abd: Soft, non tender, non distended. Normal bowel sounds Skin: No petechiae or rashes Back: No midline or flank tenderness Ext: No cyanosis, or edema Neur: Awake and alert and oriented 3, appears somnolent, cranial nerves II through XII intact, no cerebellar finger-nose deficits, gait not tested Psych: Flat affect Result Diagram: 09/20/16 1335 09/20/16 1335 Results 24 hrs Laboratory Tests Test 09/20/16 13:35 White Blood Count 8.110^3/ul Red Blood Count 5.3510^6/ul Hemoglobin 16.3g/dl Hematocrit 49.5% Mean Corpuscular Volume 92.5fl Mean Corpuscular Hemoglobin 30.5pg Mean Corpuscular Hemoglobin Concent 32.9g/dl Red Cell Distribution Width 14.1% Platelet Count 22822^3/UL Mean Platelet Volume 10.5fl Neutrophils % 62.3% Lymphocytes % 29.9% Monocytes % 5.1% Eosinophils % 1.4% Basophils % 0.9% Nucleated Red Blood Cells % 0.0/100WBC Neutrophils # 5.010^3/ul Lymphocytes # 2.410^3/ul Monocytes # 0.410^3/ul Eosinophils # 0.110^3/ul Basophils # 0.110^3/ul Nucleated Red Blood Cells # 0.010^3/ul Prothrombin Time 13.1Sec Prothrombin Time Ratio 1.0 INR International Normalized Ratio 0.99 Activated Partial Thromboplast Time 30.9Sec Sodium Level 141mmol/L Potassium Level 3.6mmol/L Chloride Level 106mmol/L Carbon Dioxide Level 28mmol/L Anion Gap 11 Blood Urea Nitrogen 30mg/dl Creatinine 0.95mg/dl Glucose Level 119mg/dl Calcium Level 8.9mg/dl Creatine Kinase 49IU/L Creatinine Kinase MB (Mass) 1.26ng/ml Troponin I < 0.012ng/ml B-Type Natriuretic Peptide 2390PG/ML Ethyl Alcohol Level < 10.0mg/dl Current Medications Medications (Trade) Dose Ordered Sig/Gayle Route PRN Reason Start Time Stop Time Status Last Admin Dose Admin Lidocaine/ Epinephrine (Xylocaine 2%/ Epi Mpf(Sdv)) 20 ml ONCE ONCE INJ 09/20/16 14:30 09/20/16 14:31 DC Ondansetron HCl (Zofran Inj) 4 mg ER BRIDGE PRN IV NAUSEA AND/OR VOMITING 09/20/16 18:30 09/21/16 18:29 Acetaminophen (Tylenol Tab) 650 mg ER BRIDGE PRN PO MILD PAIN/FEVER 09/20/16 18:30 09/21/16 18:29 Procedures/MDM Syncope and head injury and patient with pacemaker and coronary artery disease. No signs of cardiac ischemia. Her laceration was repaired. Patient remained stable on monitoring engineer with initial sinus tachycardia followed by only normal sinus rhythm. He does remain quite somnolent though his able to be aroused and answers questions. This may be secondary to concussion syndrome. He does not have any alcohol in his blood currently but was not able to urinate. He has been positive for meth and prior drug screen. Spoke with Dr. Pedro who admitting the patient to telemetry and will have his pacemaker interrogated. EKG interpretation: Sinus tachycardia rate of 103, left axis deviation, bifascicular block with right bundle branch block and left anterior fascicular block, no ST or T-wave changes concerning for acute ischemia. monitoring engineer interpretation: Normal sinus rhythm without arrhythmia Chest x-ray interpretation: No acute process, I see no pulmonary edema, no infiltrates, no widened mediastinum, no fractures. AICD in place. Laceration repair note, 4 cm macerated laceration to left occipital scalp complicated by active bleeding and macerated irregular borders: Irrigated with normal saline, anesthetized with 4 cc of lidocaine with epinephrine. Laceration was closed with 4 sha and 1 4-0 Prolene simple interrupted suture to close the macerated irregular flap portion. There was good hemostasis. Good closure. Patient taught the procedure with no complications. Departure Diagnosis: Primary Impression: Syncope Additional Impressions: Head injury Scalp laceration Concussion syndrome Condition: Serious RITA BONILLA DO Sep 20, 2016 18:55
--- NOTE | 2016-09-20 19:07 | HP ---
Date/Time of Note Date/Time of Note DATE: 09/20/16 TIME: 19:02 Assessment/Plan VTE Prophylaxis VTE Prophylaxis Intervention: SCD's Lines/Catheters IV Catheter Type (from Nrsg): Peripheral IV Assessment/Plan Assessment/Plan 36 yo M with pmhx advanced chronic systolic HF (EF 20%) sp ICD placement, grade 4 diastolic dysfunction, cardiomyopathy, h/o heart surgery as a child, polysubstance abuse, admitted for episode of LOC earlier today, etio unclear. D/ dx includes arrhytmia v intoxication v other PLAN await EKG results, unremarkable per ED though not yet uploaded into EMR first set of cardiac markers negative day team to contact cardiology service for ICD interrogation check TTE cont tele monitoring defer carotid dopplers as unlikely athlerosclerotic process in pt under the age of 40 without documented family hx of FH UDS ordered cont home meds (lasix/aldactone, asa, statin) neuro checks SCDs cardiac diet when more awake length of stay likely >2 midnights given complexity of pt's PMHx HPI/ROS Admit Date/Time Admit Date/Time Hx of Present Illness Pt quite somnolent at time of my attempted exam. Most hx obtained from chart 36 yo M with pmhx h/o CM with severe systolic dysfunction EF 20% sp AICD placement, CAD, meth and THC abuse presents after a LOC episode earlier today at [facility]. Per ER pt brought in by EMS, sustained a laceration to post scalp which ER stapled shut. When I asked pt how he was doing this evening, he was initially snoring though in response to tactile stimulation of his arm he replied he was "sleepy." Pt's most recent admission 6 weeks ago for 48 hours for SOB 2/2 acute on chronic systolic HF. He responded to dieretcics. ROS unable to obtain ROS, Soc Hx, Fam Hx, Surg hx, Home meds, All from pt 2/2 somnolence. PMHx and PSHx as per EMR, reviewed PMH/Family/Social Social History Smoking Status: Never smoker Exam/Review of Systems Vital Signs Vitals Vital Signs Date Time Temp Pulse Resp B/P Pulse Ox O2 Delivery O2 Flow Rate FiO2 09/20/16 18:18 97.8 101 17 107/66 100 Nasal Cannula 4.0 Exam Exam laying on R side, somnolent scalp laceration closed with sha no mrg lungs clear abd soft follows commands no le edema no rashes Labs Result Diagram: 09/20/16 1335 09/20/16 1335 Procedures Procedures elevated BNP noted CXR without fluid overload CT head without brain bleed CT CSpine without fracture EtOH level negative UDS pending ChemP and CBC unremarkable EFRA DOMINGUEZ MD Sep 20, 2016 19:07
[2016-09-20] MEDS ORDERED: BISACODYL (EC) 5 MG TAB PO PRN (19:30)
[2016-09-20] MEDS ORDERED: NACL 0.9% 3 ML SYG IV SCH ×2 (19:30)
[2016-09-20] MEDS ORDERED: DOCUSATE SODIUM 100 MG CAP PO PRN (19:30)
[2016-09-20] MEDS ORDERED: MAGNESIUM HYDROXIDE 30ML CUP PO PRN (19:30)
[2016-09-20 20:06] VITALS: TEMP 98.2
[2016-09-20] MEDS ORDERED: ATORVASTATIN 80 MG TAB PO SCH (21:00)
[2016-09-20 21:06] VITALS: PULSE 95
[2016-09-20 21:13] VITALS: BP 108/72; RESP 20
[2016-09-20 21:18] VITALS: Ht 172.7 cm; Wt 75.0 kg
[2016-09-20 23:52] VITALS: BP 113/57; RESP 19
[2016-09-21] VITALS (9 sets, daily range): BP systolic 111–120; BP diastolic 67–87; PULSE 92–109; RESP 18–20
[2016-09-21 03:07] LABS: TROPONIN-I 0.021 ng/ml (0.00-0.12)
[2016-09-21 03:10] LABS: CK-MB 0.95 ng/ml (0.0-2.4)
[2016-09-21] MEDS ORDERED: FUROSEMIDE 40 MG TAB PO SCH (06:00)
[2016-09-21] MEDS ORDERED: SPIRONOLACTONE 25 MG TAB PO SCH (09:00)
[2016-09-21] MEDS ORDERED: ASPIRIN 81 MG TAB PO SCH (09:00)
[2016-09-21] MEDS ORDERED: LISINOPRIL 5 MG TAB PO SCH (09:00)
[2016-09-21] MEDS ORDERED: DEXTROSE 50% 50 ML SYRINGE IV PRN ×2 (11:30)
[2016-09-21] MEDS ORDERED: GLUCOSE GEL 15 GRAM TUBE PO PRN ×2 (11:30)
[2016-09-21] MEDS ORDERED: GLUCAGON 1 MG INJ IM PRN (11:30)
[2016-09-21] MEDS ORDERED: GLUCOSE GEL 15 GRAM TUBE BUCCAL PRN (11:30)
[2016-09-21] MEDS ORDERED: INSULIN ASPART [NOVOLOG] 3 ML PEN SC SCH (11:50)
[2016-09-21 14:14] LABS: ADD SCAN DIFF NO
[2016-09-21 14:24] LABS: BASOPHIL # 0.1 10^3/ul (0.0-0.1); BASOPHILS % 0.8 % (0.0-2.0); EOSINOPHILS # 0.1 10^3/ul (0.0-0.5); EOSINOPHILS % 0.8 % (0.0-7.0); HEMATOCRIT 50.2 % (42.0-52.0); HEMOGLOBIN 16.8 g/dl (14.0-18.0); LYMPHOCYTES # 1.7 10^3/ul (0.8-2.9); LYMPHOCYTES % 15.7 % (15.0-51.0); MEAN CORPUSCULAR HEMOGLOBIN 30.7 pg (29.0-33.0); MEAN CORPUSCULAR HGB CONC 33.5 g/dl (32.0-37.0); MEAN CORPUSCULAR VOLUME 91.6 fl (82.0-101.0); MEAN PLATELET VOLUME 10.6 fl (7.4-10.4); MONOCYTE # 0.5 10^3/ul (0.3-0.9); MONOCYTES % 4.6 % (0.0-11.0); NEUTROPHIL # 8.2 10^3/ul (1.6-7.5); NEUTROPHILS % 77.9 % (39.0-77.0); PLATELET COUNT 250 10^3/UL (140-415); RED BLOOD COUNT 5.48 10^6/ul (4.70-6.10); WHITE BLOOD COUNT 10.5 10^3/ul (4.8-10.8)
[2016-09-21 14:45] LABS: ALBUMIN 4.1 g/dl (3.3-4.9); ALBUMIN/GLOBULIN RATIO 1.24; BILIRUBIN,INDIRECT 0.9 mg/dl (0-1.1); BILIRUBIN,TOTAL 0.9 mg/dl (0.2-1.3); CREATININE 0.82 mg/dl (0.61-1.24); POTASSIUM 3.6 mmol/L (3.5-5.1); TOTAL PROTEIN 7.4 g/dl (6.1-8.1)
--- NOTE | 2016-09-21 16:04 | CONS ---
Date/Time of Note Date/Time of Note DATE: 09/21/16 TIME: 15:55 Assessment/Plan Assessment/Plan Chief Complaint/Hosp Course Syncope: In setting of severe cardiomyopathy, CAD with occluded LAD, ventricular arrhythmia is certainly the highest on the differential. However the fact that he had a prodrome and was standing in line suggests that if he did not have an arrhythmia or ICD shock, he may have just had vasovagal syncope. 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 Will have to monitor, especially if he has been having arrhythmias. 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 The pt notes that he was at [employer] standing in line when he started to feel dizzy and weak. He eventually lost consciousness and hit the back of his head. He did not have chest pain or SOB and overall he has been feeling well. No orthopnea, PND, edema. He last used meth yesterday but he is currently tearful and states "I promise I'm going to quit this time". He has had two other episodes of syncope, the first leading to his ICD and the second he states was not associated with arrhythmias. He has never had an ICD shock. per HPI Past Medical History per HPI Social History Smoking Status: Current some day smoker Exam/Review of Systems Vital Signs Vitals Vital Signs Date Time Temp Pulse Resp B/P Pulse Ox O2 Delivery O2 Flow Rate FiO2 09/21/16 15:30 97.5 106 18 119/87 90 09/20/16 20:06 Nasal Cannula 2.0 Intake and Output 09/20/16 09/20/16 09/21/16 15:00 23:00 07:00 Intake Total 800 ml Output Total 900 ml Balance -100 ml Exam Constitutional: alert, oriented Psych: nl mood/affect, no complaints Head: atraumatic, normocephalic Neck: No jvd Respiratory: clear to auscultation, No crackles/rales Cardiovascular: other (cool extremities ), regular rate and rhythm, No edema, No systolic murmur Gastrointestinal: soft Neurological: nl mental status, nl speech Results EKG: sinus, RBBB, LAFB Result Diagram: 09/21/16 1400 09/21/16 1400 Results 24 hrs Laboratory Tests Test 09/21/16 01:34 09/21/16 11:12 09/21/16 14:00 Creatine Kinase 43 Creatine Kinase Index 2.2 Creatinine Kinase MB (Mass) 0.95 Troponin I 0.021 Bedside Glucose 90 White Blood Count 10.5 # Red Blood Count 5.48 Hemoglobin 16.8 Hematocrit 50.2 Mean Corpuscular Volume 91.6 Mean Corpuscular Hemoglobin 30.7 Mean Corpuscular Hemoglobin Concent 33.5 Red Cell Distribution Width 14.0 Platelet Count 250 Mean Platelet Volume 10.6 H Neutrophils % 77.9 H Lymphocytes % 15.7 Monocytes % 4.6 Eosinophils % 0.8 Basophils % 0.8 Nucleated Red Blood Cells % 0.0 Neutrophils # 8.2 H Lymphocytes # 1.7 Monocytes # 0.5 Eosinophils # 0.1 Basophils # 0.1 Nucleated Red Blood Cells # 0.0 Sodium Level 133 L Potassium Level 3.6 Chloride Level 100 Carbon Dioxide Level 25 Anion Gap 12 Blood Urea Nitrogen 21 H Creatinine 0.82 Glucose Level 135 Hemoglobin A1c 6.3 H Calcium Level 9.0 Total Bilirubin 0.9 Direct Bilirubin 0.00 Indirect Bilirubin 0.9 Aspartate Amino Transf (AST/SGOT) 27 Alanine Aminotransferase (ALT/SGPT) 39 Alkaline Phosphatase 84 Total Protein 7.4 Albumin 4.1 Globulin 3.30 H Albumin/Globulin Ratio 1.24 Medications Medications Current Medications Aspirin (Aspirin) 81 mg DAILY PO Last administered on 09/21/16t 09:06; Admin Dose 81 MG; Start 09/21/16 at 09:00 Atorvastatin Calcium (Lipitor) 80 mg QHS PO Last administered on 09/20/16 22:21 ; Admin Dose 80 MG; Start 09/20/16 at 21:00 Carvedilol (Coreg) 12.5 mg BID PO Last administered on 09/21/16 09:07; Admin Dose 12.5 MG; Start 09/20/16 at 21:00 Furosemide (Lasix) 40 mg DAILY@06 PO Last administered on 09/21/16 06:44; Admin Dose 40 MG; Start 09/21/16 at 06:00 Lisinopril (Zestril) 5 mg DAILY PO Last administered on 09/21/16 09:06; Admin Dose 5 MG; Start 09/21/16 at 09:00 Spironolactone (Aldactone) 25 mg DAILY PO Last administered on 09/21/16 09:06; Admin Dose 25 MG; Start 09/21/16 at 09:00 Acetaminophen (Tylenol Tab) 650 mg Q6H PRN PO PAIN LEVEL 1-3 OR FEVER Last administered on 09/21/16 14:11; Admin Dose 650 MG; Start 09/20/16 at 19:30 Docusate Sodium (Colace) 100 mg Q12H PRN PO CONSTIPATION; Start 09/20/16 at 19: 30 Magnesium Hydroxide (Milk Of Mag) 30 ml DAILY PRN PO CONSTIPATION Last administered on 09/21/16 14:11; Admin Dose 30 ML; Start 09/20/16 at 19:30 Bisacodyl (Dulcolax) 5 mg DAILY PRN PO CONSTIPATION; Start 09/20/16 at 19:30 Diagnostic Test (Pha) (Accu-Chek) 1 ea 02 XX ; Start 09/22/16 at 02:00 Miscellaneous Information 1 ea NOTE XX ; Start 09/21/16 at 11:30 Glucose (Glutose) 15 gm Q15M PRN PO DECREASED GLUCOSE; Start 09/21/16 at 11:30 Glucose (Glutose) 22.5 gm Q15M PRN PO DECREASED GLUCOSE; Start 09/21/16 at 11:30 Dextrose (D50w Syringe) 25 ml Q15M PRN IV DECREASED GLUCOSE; Start 09/21/16 at 11:30 Dextrose (D50w Syringe) 50 ml Q15M PRN IV DECREASED GLUCOSE; Start 09/21/16 at 11:30 Glucagon (Glucagen) 1 mg Q15M PRN IM DECREASED GLUCOSE; Start 09/21/16 at 11:30 Glucose (Glutose) 15 gm Q15M PRN BUCCAL DECREASED GLUCOSE; Start 09/21/16 at 11: 30 SUSAN RIVERO Sep 21, 2016 16:04
--- NOTE | 2016-09-21 16:16 | RADRPT ---
Echocardiogram Report Patient Name: MASTER BRUMFIELD Gender: Male Date: 1980 Study Date: 21-Sep-2016 Mandrel Cleaner: May Aldana [facility] Location: [id number] Ref. Physician: EFRA DOMINGUEZ Quality: Good Procedures: Transthoracic echocardiogram with complete 2D, M-Mode, and doppler examination. Indications: Elevated BNP. 2D/M Mode Doppler Measurement Value Normal Ranges Measurement Value Normal Ranges LVIDd 2D 5.9 3.5 - 5.6 cm LVOT Peak Fitz 0.8 m/sec LVIDs 2D 5.2 2.1 - 4.1 cm LVOT Peak PG 2.3 mmHg LVPWd 2D 1.2 0.6 - 1.1 cm MV E Peak Fitz 1.3 m/sec IVSd 2D 1.2 0.6 - 1.1 cm MV A Peak Fitz 0.5 m/sec AoR Diam 2D 3.2 2.0 - 3.7 cm MV E/A 2.4 EDV 2D 173.8 cm3 MV Decel Time 100 msec ESV 2D 136.7 cm3 MV Decel Dewitt 13 LA Dimen 2D 3.8 2.3 - 4.0 cm MV E/A 2.4 TR Peak Fitz 2.9 m/sec TR Peak PG 34.8 mmHg RVSP 37.8 mmHg Findings Left Ventricle: Mild enlargement of left ventricle cavity. Severe global left ventricular systolic dysfunction. Ejection fraction is visually estimated at 25 %. Resting Segmental Wall Motion Analysis: Abnormal septal motion consistent with prior cardiac surgery. Akinetic anterior wall and distal apex. No LV thrombus seen. Right Ventricle: Normal right ventricular size. Normal right ventricular systolic function. Pacemaker right heart. Left Atrium: There is moderate enlargement of left atrium. Right Atrium: There is mild enlargement of right atrium. Mitral Valve: Mitral valve leaflets appear mildly thickened. Mild mitral annular calcification. Mild to moderate mitral valve regurgitation. The regurgitation jet is eccentrically directed which may underestimate the severity of mitral regurgitation. Aortic Valve: Normal appearance of the aortic valve. No significant aortic stenosis or insufficiency. Tricuspid Valve: Normal appearance of the tricuspid valve. Estimated peak PA systolic pressure 39 mmHg. There is mild to moderate tricuspid regurgitation. Pulmonic Valve: Normal pulmonic valve appearance. There is mild pulmonic regurgitation. Pericardium: Normal pericardium with no significant pericardial effusion. Aorta: Normal aortic root. IVC: Normal size and normal respiratory collapse consistent with normal right atrial pressure. Pulmonary Artery: Normal pulmonary artery size. Conclusions Mild enlargement of left ventricle cavity. Severe global left ventricular systolic dysfunction. Ejection fraction is visually estimated at 25 %. Abnormal septal motion consistent with prior cardiac surgery. Akinetic anterior wall and distal apex. No LV thrombus seen. Mild to moderate mitral valve regurgitation. Mild to moderate tricuspid regurgitation. Known ICD leads seen in right heart. Estimated peak PA systolic pressure 39 mmHg based on RA pressure of 3 mmHg. Electronically Signed By: Roman Bassett 21-Sep-2016 16:14:42 -0700 Patient Name: MASTER BRUMFIELD Study Date: 21-Sep-2016 [id number]
--- NOTE | 2016-09-21 16:39 | PN ---
Date/Time of Note Date/Time of Note DATE: 09/21/16 TIME: 16:32 Assessment/Plan VTE Prophylaxis VTE Prophylaxis Intervention: SCD's Lines/Catheters IV Catheter Type (from Nrs): Peripheral IV Urinary Cath still in place: No Assessment/Plan Chief Complaint/Hosp Course Assessment and plan 1. Altered level of consciousness with reported syncope. Follow up on drug tox screen. CT scan of the brain showed no acute intracranial pathology. Cervical spine CT also showed multilevel degenerative disc disease pronounced at C5-C6 and C6-C7 as well as stenosis pronounced at C5-C6. Will get physical therapy to follow. 2. Cardiopathy with reported EF of 25 %. ICD placement in place. Continue optimization with cardiovascular medications. 3. CHF. Distribution Tech consulted. Continue telemetry monitoring. Continue beta -renetta and Lasix. 4. Diabetes. Continue insulin regimen. Will adjust as needed Disposition and plan: Follow-up on carotid Doppler study. Tentative plan for interrogation of ICD. Will follow up Discussed plan of care with Dr. Jones Problems: Subjective 24 Hr Interval Summary Free Text/Dictation Little anxious. No reports of chest pain Exam/Review of Systems Vital Signs Vitals Vital Signs Date Time Temp Pulse Resp B/P Pulse Ox O2 Delivery O2 Flow Rate FiO2 09/21/16 16:21 92 09/21/16 15:30 97.5 18 119/87 90 09/20/16 20:06 Nasal Cannula 2.0 Intake and Output 09/20/16 09/20/16 09/21/16 15:00 23:00 07:00 Intake Total 800 ml Output Total 900 ml Balance -100 ml Exam Constitutional: alert Psych: anxiety Head: normocephalic Neck: supple, No jvd Respiratory: clear to auscultation Cardiovascular: other (Pacemaker in place.) Gastrointestinal: non-tender, soft (Pacemaker in place. Regular rate) Extremities: No edema Neurological: other (Slightly forgetful) Skin: nl turgor Results Result Diagram: 09/21/16 1400 09/21/16 1400 Results 24 hrs Laboratory Tests Test 09/21/16 01:34 09/21/16 11:12 09/21/16 14:00 Creatine Kinase 43 Creatine Kinase Index 2.2 Creatinine Kinase MB (Mass) 0.95 Troponin I 0.021 Bedside Glucose 90 White Blood Count 10.5 # Red Blood Count 5.48 Hemoglobin 16.8 Hematocrit 50.2 Mean Corpuscular Volume 91.6 Mean Corpuscular Hemoglobin 30.7 Mean Corpuscular Hemoglobin Concent 33.5 Red Cell Distribution Width 14.0 Platelet Count 250 Mean Platelet Volume 10.6 H Neutrophils % 77.9 H Lymphocytes % 15.7 Monocytes % 4.6 Eosinophils % 0.8 Basophils % 0.8 Nucleated Red Blood Cells % 0.0 Neutrophils # 8.2 H Lymphocytes # 1.7 Monocytes # 0.5 Eosinophils # 0.1 Basophils # 0.1 Nucleated Red Blood Cells # 0.0 Sodium Level 133 L Potassium Level 3.6 Chloride Level 100 Carbon Dioxide Level 25 Anion Gap 12 Blood Urea Nitrogen 21 H Creatinine 0.82 Glucose Level 135 Hemoglobin A1c 6.3 H Calcium Level 9.0 Total Bilirubin 0.9 Direct Bilirubin 0.00 Indirect Bilirubin 0.9 Aspartate Amino Transf (AST/SGOT) 27 Alanine Aminotransferase (ALT/SGPT) 39 Alkaline Phosphatase 84 Total Protein 7.4 Albumin 4.1 Globulin 3.30 H Albumin/Globulin Ratio 1.24 Medications Medications Current Medications Aspirin (Aspirin) 81 mg DAILY PO Last administered on 09/21/16 09:06; Admin Dose 81 MG; Start 09/21/16 at 09:00 Atorvastatin Calcium (Lipitor) 80 mg QHS PO Last administered on 09/20/16 22:21 ; Admin Dose 80 MG; Start 09/20/16 at 21:00 Carvedilol (Coreg) 12.5 mg BID PO Last administered on 09/21/16 09:07; Admin Dose 12.5 MG; Start 09/20/16 at 21:00 Furosemide (Lasix) 40 mg DAILY@06 PO Last administered on 09/21/16 06:44; Admin Dose 40 MG; Start 09/21/16 at 06:00 Lisinopril (Zestril) 5 mg DAILY PO Last administered on 09/21/16 09:06; Admin Dose 5 MG; Start 09/21/16 at 09:00 Spironolactone (Aldactone) 25 mg DAILY PO Last administered on 09/21/16 09:06; Admin Dose 25 MG; Start 09/21/16 at 09:00 Acetaminophen (Tylenol Tab) 650 mg Q6H PRN PO PAIN LEVEL 1-3 OR FEVER Last administered on 09/21/16 14:11; Admin Dose 650 MG; Start 09/20/16 at 19:30 Docusate Sodium (Colace) 100 mg Q12H PRN PO CONSTIPATION; Start 09/20/16 at 19: 30 Magnesium Hydroxide (Milk Of Mag) 30 ml DAILY PRN PO CONSTIPATION Last administered on 09/21/16t 14:11; Admin Dose 30 ML; Start 09/20/16 at 19:30 Bisacodyl (Dulcolax) 5 mg DAILY PRN PO CONSTIPATION; Start 09/20/16 at 19:30 Diagnostic Test (Pha) (Accu-Chek) 1 ea 02 XX ; Start 09/22/16 at 02:00 Miscellaneous Information 1 ea NOTE XX ; Start 09/21/16 at 11:30 Glucose (Glutose) 15 gm Q15M PRN PO DECREASED GLUCOSE; Start 09/21/16 at 11:30 Glucose (Glutose) 22.5 gm Q15M PRN PO DECREASED GLUCOSE; Start 09/21/16 at 11:30 Dextrose (D50w Syringe) 25 ml Q15M PRN IV DECREASED GLUCOSE; Start 09/21/16 at 11:30 Dextrose (D50w Syringe) 50 ml Q15M PRN IV DECREASED GLUCOSE; Start 09/21/16 at 11:30 Glucagon (Glucagen) 1 mg Q15M PRN IM DECREASED GLUCOSE; Start 09/21/16 at 11:30 Glucose (Glutose) 15 gm Q15M PRN BUCCAL DECREASED GLUCOSE; Start 09/21/16 at 11: 30 SHAN SIM Sep 21, 2016 16:39
--- NOTE | 2016-09-21 18:55 | RADRPT ---
PROCEDURE: US Carotids. CLINICAL INDICATION: bruit , syncope TECHNIQUE: Multiple sonographic of the carotid bifurcation region and vertebral arteries were obta ined utilizing magaña scale, duplex and color-flow imaging. The images were reviewed on a PACS worksta tion. COMPARISON: No prior studies are available for comparison. FINDINGS: Evaluation of the right carotid bifurcation region reveals no significant calcific atherosclerotic d isease. Evaluation of the left carotid bifurcation region reveals mild calcific atherosclerotic disease. . There is a 20% stenosis in the left carotid bulb. There is antegrade flow within the vertebral arteries bilaterally. RIGHT CAROTID MEASUREMENTS: Common Carotid Xpqtmk65.9 (cm/sec) Internal Carotid Artery - cgdentwc77 (cm/sec) Internal Carotid Artery - mid59.3 (cm/sec) Internal Carotid Artery - fivtdu95.2 (cm/sec) Internal Carotid/Common Carotid0.98 LEFT CAROTID MEASUREMENTS: Common Carotid Anural330.3 (cm/sec) Internal Carotid Artery - pgliajxz41.1 (cm/sec) Internal Carotid Artery - mid82.4 (cm/sec) Internal Carotid Artery - ixtbmz71.5 (cm/sec) Internal Carotid/Common Carotid0.8 RPTAT: AA IMPRESSION: No evidence for hemodynamically significant stenosis in the bilateral internal carotid arteries - va lidated velocity measurements with angiographic measurements, velocity criteria are extrapolated fro m diameter data as defined by the Society of Radiologists in Ultrasound Consensus Conference Radiolo gy 2003; 229;340-346. This study does indirectly reference the measurement of the distal ICA diamet er as the denominator for stenosis measurement. Normal antegrade flow in the vertebral arteries bilaterally. .Sha Miles MD, MD Date Time Electronically viewed and signed by .Sha Miles MD, MD on 09/21/2016 18:54 .S/
[2016-09-22] MEDS ORDERED: ACCU-CHEK XX SCH (02:00)
== END 2016-09-21 18:19 | disposition left against medical advice (07) | DRG 312 ==
LOC: E/R 13:14 → TEL 18:11
PROVIDERS: ADMIT Internal Medicine; ATTEND Internal Medicine
PROC: 0HQ0XZZ Repair Scalp Skin, External Approach (ICD-10-PCS; principal; 2016-09-20)
DX: R55 Syncope and collapse (principal); I42.8 Other cardiomyopathies; I50.22 Chronic systolic (congestive) heart failure; R41.82 Altered mental status, unspecified; Z95.810 Presence of automatic (implantable) cardiac defibrillator; I25.10 Atherosclerotic heart disease of native coronary artery without angina pectoris; F15.10 Other stimulant abuse, uncomplicated; F12.10 Cannabis abuse, uncomplicated; M50.322 Other cervical disc degeneration at C5-C6 level; E11.9 Type 2 diabetes mellitus without complications; S01.01XA Laceration without foreign body of scalp, initial encounter; W18.30XA Fall on same level, unspecified, initial encounter; Y92.59 Other trade areas as the place of occurrence of the external cause
CPT/HCPCS: 36415; 70450; 71010; 72125; 80048; 80053; 80306; 82550; 82553; 82962; 83036; 83880; 84484; 85025; 85610; 85730; 93005; 93306; 93880; J1815

== ENCOUNTER 2016-09-21 23:28 | Inpatient (IN) | payer MEDICAID ==
[~2016-09-21] VITALS: Ht 170.2 cm; Wt 74.0 kg
[2016-09-22 01:30] VITALS: TEMP 98
[2016-09-22 02:02] LABS: ADD SCAN DIFF NO
[2016-09-22 02:04] LABS: BASOPHILS % 0.5 % (0.0-2.0); EOSINOPHILS # 0.1 10^3/ul (0.0-0.5); EOSINOPHILS % 1.1 % (0.0-7.0); HEMATOCRIT 47.8 % (42.0-52.0); HEMOGLOBIN 15.8 g/dl (14.0-18.0); LYMPHOCYTES # 1.6 10^3/ul (0.8-2.9); LYMPHOCYTES % 18.3 % (15.0-51.0); MEAN CORPUSCULAR HEMOGLOBIN 30.3 pg (29.0-33.0); MEAN CORPUSCULAR HGB CONC 33.1 g/dl (32.0-37.0); MEAN CORPUSCULAR VOLUME 91.7 fl (82.0-101.0); MEAN PLATELET VOLUME 10.6 fl (7.4-10.4); MONOCYTE # 0.5 10^3/ul (0.3-0.9); MONOCYTES % 6.2 % (0.0-11.0); NEUTROPHIL # 6.3 10^3/ul (1.6-7.5); NEUTROPHILS % 73.5 % (39.0-77.0); PLATELET COUNT 253 10^3/UL (140-415); RED BLOOD COUNT 5.21 10^6/ul (4.70-6.10); RED CELL DISTRIBUTION WIDTH 13.9 % (11.5-14.5); WHITE BLOOD COUNT 8.5 10^3/ul (4.8-10.8)
[2016-09-22 02:19] LABS: INR 0.99; PROTIME 13.1 Sec (12.2-14.2)
[2016-09-22 02:20] LABS: PARTIAL THROMBOPLASTIN TIME 30.7 Sec (25.0-35.0)
[2016-09-22 02:24] LABS: ALBUMIN/GLOBULIN RATIO 1.37; BILIRUBIN,INDIRECT 0.3 mg/dl (0-1.1); BILIRUBIN,TOTAL 0.3 mg/dl (0.2-1.3); CALCIUM 8.8 mg/dl (8.4-10.2); CREATININE 0.93 mg/dl (0.61-1.24); POTASSIUM 3.5 mmol/L (3.5-5.1); TOTAL PROTEIN 6.9 g/dl (6.1-8.1)
--- NOTE | 2016-09-22 02:34 | RADRPT ---
PROCEDURE: XR Chest. CLINICAL INDICATION: Shortness of breath. TECHNIQUE: AP Portable chest. COMPARISON: 07/22/2016 FINDINGS: There is marked cardiomegaly. Prior median sternotomy and a left chest cardiac device are again not ed, without change The lungs are clear. The osseous structures are unremarkable. IMPRESSION: No acute findings. RPTAT: HIKT .Bony Alejandra MD, MD Date Time Electronically viewed and signed by .Bony Alejandra MD, MD on 09/22/2016 02:33 .T/
[2016-09-22 02:35] LABS: TROPONIN-I 0.025 ng/ml (0.00-0.12)
[2016-09-22] MEDS ORDERED: ACETAMINOPHEN 325 MG TAB PO PRN (09:00)
[2016-09-22] MEDS ORDERED: ONDANSETRON 4 MG INJ IV PRN (09:00)
[2016-09-22] MEDS ORDERED: NITROGLYCERIN (SL) 0.4 MG TAB SL PRN (09:00)
[2016-09-22] MEDS ORDERED: morphine 2 MG INJ IV PRN (09:00)
[2016-09-22] MEDS ORDERED: NACL 0.9% 3 ML SYG IV SCH (09:00)
[2016-09-22] MEDS ORDERED: SPIRONOLACTONE (5 MG/ML PO SYG) PO SCH (09:00)
--- NOTE | 2016-09-22 09:12 | HP ---
Date/Time of Note Date/Time of Note DATE: 09/22/16 TIME: 09:01 Assessment/Plan VTE Prophylaxis VTE Prophylaxis Intervention: SCD's Lines/Catheters IV Catheter Type (from Nrs): Peripheral IV Assessment/Plan Assessment/Plan IMPRESSION 1. Congestive heart failure exacerbation. 2. History of coronary artery disease. 3. History of cardiomyopathy with severe systolic dysfunction with EF of 20%. 4. Stage IV diastolic dysfunction. 5. History of congenital heart disease, status post surgery as a child. 6. Methamphetamine and marijuana abuse. 7. ICD placement. 8. Hypertension PLAN cont cardiac meds per previous cardiology recommendation. Re-consult Dr. Bassett HPI/ROS Admit Date/Time Admit Date/Time Hx of Present Illness The patient is a 36-year-old male with a history of hypertension, CHF, coronary artery disease, pacemaker, history of cardiomyopathy with severe systolic dysfunction with an EF of 20%, stage IV diastolic dysfunction, s/p ICD and history of congenital heart disease status post surgery during childhood, methamphetamine and marijuana abuse, who presented to the emergency department with a chief complaint of shortness of breath. Pt was just admitted 2 days ago, but left AMA. He has hx of non-compliance. He is now returning back for same reason. He was seen by Dr. bassett yesterday and also had 2D-echo, which showed EF of 25% and moderate mitral and tricuspid regurgitation. . PMH/Family/Social Past Medical History 1. Congestive heart failure exacerbation. 2. History of coronary artery disease. 3. History of cardiomyopathy with severe systolic dysfunction with EF of 20%. 4. Stage IV diastolic dysfunction. 5. History of congenital heart disease, status post surgery as a child. 6. Methamphetamine and marijuana abuse. 7. ICD placement. 8. Hypertension Social History Smoking Status: Unknown if ever smoked Drug Use: other (meth) Exam/Review of Systems Vital Signs Vitals Vital Signs Date Time Temp Pulse Resp B/P Pulse Ox O2 Delivery O2 Flow Rate FiO2 09/22/16 08:10 94 14 133/94 100 Nasal Cannula 4.0 09/22/16 01:30 98.0 Exam Constitutional: alert, oriented Head: atraumatic, normocephalic Eyes: EOMI, PERRL Respiratory: clear to auscultation, normal air movement Cardiovascular: systolic murmur Gastrointestinal: non-tender, soft Extremities: normal pulses Labs Result Diagram: 09/22/16 0125 09/22/16 0125 Medications Medications Current Medications Ondansetron HCl (Zofran Inj) 4 mg Q6H PRN IV NAUSEA AND/OR VOMITING; Start 09/22 at 09:00 Nitroglycerin (Nitroglycerin (Sl Tab) 0.4 Mg) 1 tab Q5M PRN SL CHEST PAIN; Start 09/22/16 at 09:00 Acetaminophen (Tylenol Tab) 650 mg Q6H PRN PO PAIN LEVEL 1-3 OR FEVER; Start at 09:00 Morphine Sulfate (morphine) 2 mg Q4H PRN IV PAIN LEVEL 7-10; Start 09/22/16 at 09:00 Enoxaparin Sodium (Lovenox) 40 mg DAILY SC ; Start 09/22/16 at 09:00 Aspirin (Aspirin) 81 mg DAILY PO ; Start 09/22/16 at 09:00 Atorvastatin Calcium (Lipitor) 80 mg QHS PO ; Start 09/22/16 at 21:00 Carvedilol (Coreg) 12.5 mg BID PO ; Start 09/22/16 at 09:00 Lisinopril (Zestril) 5 mg DAILY PO ; Start 09/22/16 at 09:00 Spironolactone (Aldactone) 25 mg DAILY PO ; Start 09/22/16 at 09:00 LYNDSEY BAUTISTA MD Sep 22, 2016 09:12
[2016-09-22] MEDS: ASPIRIN 81 MG TAB PO SCH (09:43)
[2016-09-22] MEDS: LISINOPRIL 5 MG TAB PO SCH (09:44)
[2016-09-22] MEDS: SPIRONOLACTONE 25 MG TAB PO SCH (09:44)
[2016-09-22] MEDS: ENOXAPARIN 40 MG/0.4 ML SYG SC SCH (09:44)
--- NOTE | 2016-09-22 10:08 | QN ---
Documentation Comment Observation Note: Time: 4 hours Family Hx: Negative for diabetes Evaluation: Multiple exams showed improving symptoms and no evidence of clinical decompensation. SUZANNA SILVA MD Sep 22, 2016 10:08
--- NOTE | 2016-09-22 13:23 | CONS ---
Date/Time of Note Date/Time of Note DATE: 09/22/16 TIME: 13:14 Assessment/Plan Assessment/Plan Chief Complaint/Hosp Course Syncope: Occurred 09/20. ICD did not show any sustained arrhythmias or shocks. Likely vasovagal by history. 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 Extremities warm today. He is drowsy but I suspect he may have used drugs again (some form of depressant) and not secondary to low cardiac output s/p [employer] ICD 2015 for syncope Prior cardiac surgery as a child (unknown details) Meth abuse: counseled on cessation. 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 He had his ICD interrogated and it showed short episodes of NSVT but nothing sustained or shocks. He left AMA and returned today. He notes that he went to look for his dog (gave it to a friend apparently). He denies using meth. He complains of SOB. No chest pain. No further syncope. per HPI. Social History Smoking Status: Unknown if ever smoked Drug Use: other (meth) Exam/Review of Systems Vital Signs Vitals Vital Signs Date Time Temp Pulse Resp B/P Pulse Ox O2 Delivery O2 Flow Rate FiO2 09/22/16 12:47 83 14 103/82 100 Nasal Cannula 4.0 09/22/16 01:30 98.0 Exam Constitutional: oriented, No alert (drowsy) Psych: no complaints Head: atraumatic, normocephalic Neck: No jvd Respiratory: clear to auscultation, No crackles/rales Cardiovascular: regular rate and rhythm, No edema, No systolic murmur Gastrointestinal: non-tender, soft Extremities: other (warm) Neurological: nl mental status, nl speech Results Result Diagram: 09/22/16 0125 09/22/16 0125 Results 24 hrs Laboratory Tests Test 09/22/16 01:25 09/22/16 09:27 White Blood Count 8.5 Red Blood Count 5.21 Hemoglobin 15.8 Hematocrit 47.8 Mean Corpuscular Volume 91.7 Mean Corpuscular Hemoglobin 30.3 Mean Corpuscular Hemoglobin Concent 33.1 Red Cell Distribution Width 13.9 Platelet Count 253 Mean Platelet Volume 10.6 H Neutrophils % 73.5 Lymphocytes % 18.3 Monocytes % 6.2 Eosinophils % 1.1 Basophils % 0.5 Nucleated Red Blood Cells % 0.0 Neutrophils # 6.3 Lymphocytes # 1.6 Monocytes # 0.5 Eosinophils # 0.1 Basophils # 0.0 Nucleated Red Blood Cells # 0.0 Prothrombin Time 13.1 Prothrombin Time Ratio 1.0 INR International Normalized Ratio 0.99 Activated Partial Thromboplast Time 30.7 Sodium Level 141 Potassium Level 3.5 Chloride Level 104 Carbon Dioxide Level 28 Anion Gap 13 Blood Urea Nitrogen 30 H Creatinine 0.93 Glucose Level 95 # Calcium Level 8.8 Total Bilirubin 0.3 Direct Bilirubin 0.00 Indirect Bilirubin 0.3 Aspartate Amino Transf (AST/SGOT) 27 Alanine Aminotransferase (ALT/SGPT) 43 Alkaline Phosphatase 81 Troponin I 0.025 0.043 B-Type Natriuretic Peptide 3230 H Total Protein 6.9 Albumin 4.0 Globulin 2.90 Albumin/Globulin Ratio 1.37 Medications Medications Current Medications Ondansetron HCl (Zofran Inj) 4 mg Q6H PRN IV NAUSEA AND/OR VOMITING; Start 09/22 at 09:00 Nitroglycerin (Nitroglycerin (Sl Tab) 0.4 Mg) 1 tab Q5M PRN SL CHEST PAIN; Start 09/22/16 at 09:00 Acetaminophen (Tylenol Tab) 650 mg Q6H PRN PO PAIN LEVEL 1-3 OR FEVER; Start at 09:00 Morphine Sulfate (morphine) 2 mg Q4H PRN IV PAIN LEVEL 7-10; Start 09/22/16 at 09:00 Enoxaparin Sodium (Lovenox) 40 mg DAILY SC Last administered on 09/22/16t 09:44 ; Admin Dose 40 MG; Start 09/22/16 at 09:00 Aspirin (Aspirin) 81 mg DAILY PO Last administered on 09/22/16 09:43; Admin Dose 81 MG; Start 09/22/16 at 09:00 Atorvastatin Calcium (Lipitor) 80 mg QHS PO ; Start 09/22/16 at 21:00 Carvedilol (Coreg) 12.5 mg BID PO Last administered on 09/22/16 09:45; Admin Dose 12.5 MG; Start 09/22/16 at 09:00 Lisinopril (Zestril) 5 mg DAILY PO Last administered on 09/22/16 09:44; Admin Dose 5 MG; Start 09/22/16 at 09:00 Spironolactone (Aldactone) 25 mg DAILY PO Last administered on 09/22/16 09:44; Admin Dose 25 MG; Start 09/22/16 at 09:00 SUSAN RIVERO Sep 22, 2016 13:23
[2016-09-22] MEDS: FUROSEMIDE 20 MG TAB PO SCH (14:05)
[2016-09-22 14:23] LABS: BARBITURATES Negative (NEGATIVE); BENZODIAZEPINES Negative (NEGATIVE); OPIATES Negative (NEGATIVE)
[2016-09-22 14:48] LABS: CANNABINOIDS Positive (NEGATIVE); COCAINE Negative (NEGATIVE)
[2016-09-22 19:00] VITALS: BP 109/68; PULSE 86; RESP 18
[2016-09-22 19:01] VITALS: Ht 170.2 cm; Wt 74.0 kg
[2016-09-22 20:22] VITALS: PULSE 85
[2016-09-22] MEDS ORDERED: ZOLPIDEM 5 MG TAB PO PRN (21:00)
[2016-09-22] MEDS ORDERED: ATORVASTATIN 80 MG TAB PO SCH (21:00)
[2016-09-23] VITALS (10 sets, daily range): BP systolic 91–110; BP diastolic 56–78; PULSE 79–96; RESP 16–20
[2016-09-23 07:29] LABS: ADD SCAN DIFF NO
[2016-09-23 07:43] LABS: BASOPHIL # 0.1 10^3/ul (0.0-0.1); BASOPHILS % 0.7 % (0.0-2.0); EOSINOPHILS # 0.2 10^3/ul (0.0-0.5); EOSINOPHILS % 2.5 % (0.0-7.0); HEMATOCRIT 48.1 % (42.0-52.0); HEMOGLOBIN 15.7 g/dl (14.0-18.0); LYMPHOCYTES # 2.5 10^3/ul (0.8-2.9); LYMPHOCYTES % 32.3 % (15.0-51.0); MEAN CORPUSCULAR HEMOGLOBIN 30.4 pg (29.0-33.0); MEAN CORPUSCULAR HGB CONC 32.6 g/dl (32.0-37.0); MEAN PLATELET VOLUME 10.5 fl (7.4-10.4); MONOCYTE # 0.4 10^3/ul (0.3-0.9); MONOCYTES % 4.9 % (0.0-11.0); NEUTROPHIL # 4.5 10^3/ul (1.6-7.5); NEUTROPHILS % 59.2 % (39.0-77.0); PLATELET COUNT 246 10^3/UL (140-415); RED BLOOD COUNT 5.17 10^6/ul (4.70-6.10); RED CELL DISTRIBUTION WIDTH 13.9 % (11.5-14.5); WHITE BLOOD COUNT 7.6 10^3/ul (4.8-10.8)
[2016-09-23 08:01] LABS: ALBUMIN 3.7 g/dl (3.3-4.9); ALBUMIN/GLOBULIN RATIO 1.19; BILIRUBIN,INDIRECT 0.4 mg/dl (0-1.1); BILIRUBIN,TOTAL 0.4 mg/dl (0.2-1.3); CREATININE 0.81 mg/dl (0.61-1.24); MAGNESIUM 1.6 mg/dl (1.7-2.5); POTASSIUM 3.9 mmol/L (3.5-5.1); TOTAL PROTEIN 6.8 g/dl (6.1-8.1)
[2016-09-23] MEDS: ASPIRIN 81 MG TAB PO SCH (08:31)
[2016-09-23] MEDS: SPIRONOLACTONE 25 MG TAB PO SCH (08:31)
[2016-09-23] MEDS: FUROSEMIDE 20 MG TAB PO SCH (08:33)
[2016-09-23] MEDS: LISINOPRIL 5 MG TAB PO SCH (08:33)
[2016-09-23] MEDS: ENOXAPARIN 40 MG/0.4 ML SYG SC SCH (08:37)
--- NOTE | 2016-09-23 16:39 | DS ---
Date/Time of Note Date/Time of Note DATE: 09/23/16 TIME: 16:28 Discharge Summary Admission/Discharge Info Admit Date/Time Sep 22, 2016 at 03:22 Discharge Date/Time Final Diagnosis 1. Syncope, occured on 09/20/2016, consider vasavegal 2. 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 s/p [employer] ICD 2014 for syncope, checked 5. Prior cardiac surgery as a child (unknown details) 6. Meth abuse: counseled on cessation. Patient Condition: Stable Hx of Present Illness Hospital Course The patient is a 36-year-old male with a history of hypertension, CHF, history of cardiomyopathy with severe systolic dysfunction with an EF of 20%, stage IV diastolic dysfunction, s/p ICD and history of congenital heart disease status post surgery during childhood, methamphetamine and marijuana abuse. Patient had an syncope spell on 09/20/2016 with arrhythmia or ICD shock. Patient signed AMA and left hospital but came back for further work up and treatment of syncope he had on 09/20/2016. He denies dizziness, no recurrent syncope. He got ICD check on 09/22/2016. Patient denies shortness of breath. The syncope is considered vasovagal per cardiology. Patient will follow up with cardiology outpatient. . Home Meds Active Scripts Albuterol/Ipratropium* (Combivent Respimat*) 20-100 Mcg/Inh - 4 Gm Aer.w.adap, 1 PUFF INHALATION QID, #1 INHALER Prov:EDIL FAJARDO 07/24/16 Furosemide* (Furosemide*) 40 Mg Tablet, 40 MG PO DAILY for 30 Days, TAB Prov:HEATH LARKIN 05/15/16 Lisinopril* (Lisinopril*) 5 Mg Tablet, 5 MG PO DAILY for 30 Days, TAB Prov:MARINA DELGADO MD 05/05/16 Spironolactone* (Aldactone*) 5 Mg/Ml (COMPOUNDED) Susp, 25 MG PO DAILY for 30 Days Prov:MARINA DELGADO MD 05/05/16 Reported Medications Carvedilol* (Carvedilol*) 12.5 Mg Tablet, 12.5 MG PO BID, #60 TAB 10/05/15 Atorvastatin* (Atorvastatin*) 80 Mg Tablet, 80 MG PO QHS, #30 TAB 10/05/15 Aspirin* (Aspirin* Chew) 81 Mg Tab.chew, 81 MG PO DAILY, TAB.CHEW 10/05/15 Follow-up Plan cardiology in one week PCP in one week Primary Care Provider Not On Staff Doctor Pending Labs Laboratory Tests Test 09/22/16 18:35 09/23/16 07:15 Troponin I 0.026ng/ml (0.00-0.12) White Blood Count 7.610^3/ul (4.8-10.8) Red Blood Count 5.1710^6/ul (4.70-6.10) Hemoglobin 15.7g/dl (14.0-18.0) Hematocrit 48.1% (42.0-52.0) Mean Corpuscular Volume 93.0fl (82.0-101.0) Mean Corpuscular Hemoglobin 30.4pg (29.0-33.0) Mean Corpuscular Hemoglobin Concent 32.6g/dl (32.0-37.0) Red Cell Distribution Width 13.9% (11.5-14.5) Platelet Count 37874^3/UL (140-415) Mean Platelet Volume 10.5fl (7.4-10.4) Neutrophils % 59.2% (39.0-77.0) Lymphocytes % 32.3% (15.0-51.0) Monocytes % 4.9% (0.0-11.0) Eosinophils % 2.5% (0.0-7.0) Basophils % 0.7% (0.0-2.0) Nucleated Red Blood Cells % 0.0/100WBC (0.0-0.0) Neutrophils # 4.510^3/ul (1.6-7.5) Lymphocytes # 2.510^3/ul (0.8-2.9) Monocytes # 0.410^3/ul (0.3-0.9) Eosinophils # 0.210^3/ul (0.0-0.5) Basophils # 0.110^3/ul (0.0-0.1) Nucleated Red Blood Cells # 0.010^3/ul (0.0-0.0) Sodium Level 138mmol/L (135-144) Potassium Level 3.9mmol/L (3.5-5.1) Chloride Level 102mmol/L (97-110) Carbon Dioxide Level 27mmol/L (21-31) Anion Gap 13 (8-16) Blood Urea Nitrogen 24mg/dl (7-20) Creatinine 0.81mg/dl (0.61-1.24) Glucose Level 146mg/dl (70-220) Calcium Level 9.0mg/dl (8.4-10.2) Magnesium Level 1.6mg/dl (1.7-2.5) Total Bilirubin 0.4mg/dl (0.2-1.3) Direct Bilirubin 0.00mg/dl (0.00-0.20) Indirect Bilirubin 0.4mg/dl (0-1.1) Aspartate Amino Transf (AST/SGOT) 28IU/L (15-46) Alanine Aminotransferase (ALT/SGPT) 39IU/L (13-69) Alkaline Phosphatase 72IU/L (42-121) Total Protein 6.8g/dl (6.1-8.1) Albumin 3.7g/dl (3.3-4.9) Globulin 3.10g/dl (1.3-3.2) Albumin/Globulin Ratio 1.19 MARINA DELGADO MD Sep 23, 2016 16:38
== END 2016-09-23 19:07 | disposition left against medical advice (07) | DRG 312 ==
LOC: FTE 23:28 → MS4 09-22 03:22
PROVIDERS: ADMIT Internal Medicine; ATTEND Internal Medicine
DX: R55 Syncope and collapse (principal); I42.9 Cardiomyopathy, unspecified; I11.0 Hypertensive heart disease with heart failure; I50.9 Heart failure, unspecified; I25.10 Atherosclerotic heart disease of native coronary artery without angina pectoris; F15.10 Other stimulant abuse, uncomplicated
CPT/HCPCS: 71010; 80053; 80307; 83735; 83880; 84484; 85025; 85610; 85730; 93005; J1650; J2270

== ENCOUNTER 2016-09-28 01:22 | Inpatient (IN) | payer MEDICAID ==
[~2016-09-28] VITALS: Ht 170.2 cm; Wt 79.0 kg
[2016-09-28 03:18] LABS: ADD SCAN DIFF NO
[2016-09-28 03:19] LABS: BASOPHIL # 0.1 10^3/ul (0.0-0.1); EOSINOPHILS # 0.3 10^3/ul (0.0-0.5); EOSINOPHILS % 2.6 % (0.0-7.0); HEMATOCRIT 47.8 % (42.0-52.0); HEMOGLOBIN 15.3 g/dl (14.0-18.0); LYMPHOCYTES # 3.4 10^3/ul (0.8-2.9); LYMPHOCYTES % 32.3 % (15.0-51.0); MEAN CORPUSCULAR VOLUME 93.7 fl (82.0-101.0); MEAN PLATELET VOLUME 10.7 fl (7.4-10.4); MONOCYTE # 0.7 10^3/ul (0.3-0.9); MONOCYTES % 6.2 % (0.0-11.0); NEUTROPHIL # 6.1 10^3/ul (1.6-7.5); NEUTROPHILS % 57.4 % (39.0-77.0); PLATELET COUNT 248 10^3/UL (140-415); RED CELL DISTRIBUTION WIDTH 14.3 % (11.5-14.5); WHITE BLOOD COUNT 10.5 10^3/ul (4.8-10.8)
--- NOTE | 2016-09-28 03:26 | ERA ---
ER Documentation Chief Complaint Date/Time DATE: 09/28/16 TIME: 03:23 Chief Complaint SOB x 2 hours. Pt dc from hospital 2 days ago. HPI Who comes in with shortness of breath for the past 2 hours. Patient has history of cardiomyopathy 20% EF. Shortness of breath getting progressively worse over the past 24 hours. ROS All systems reviewed and are negative except as per history of present illness. Medications Home Meds Active Scripts Albuterol/Ipratropium* (Combivent Respimat*) 20-100 Mcg/Inh - 4 Gm Aer.w.adap, 1 PUFF INHALATION QID, #1 INHALER Prov:EDIL FAJARDO MAzalia 07/24/16 Furosemide* (Furosemide*) 40 Mg Tablet, 40 MG PO DAILY for 30 Days, TAB Prov:HEATH LARKIN. 05/15/16 Lisinopril* (Lisinopril*) 5 Mg Tablet, 5 MG PO DAILY for 30 Days, TAB Prov:MARINA DELGADO MD 05/05/16 Spironolactone* (Aldactone*) 5 Mg/Ml (COMPOUNDED) Susp, 25 MG PO DAILY for 30 Days Prov:MARINA DELGADO MD 05/05/16 Reported Medications Carvedilol* (Carvedilol*) 12.5 Mg Tablet, 12.5 MG PO BID, #60 TAB 10/05/15 Atorvastatin* (Atorvastatin*) 80 Mg Tablet, 80 MG PO QHS, #30 TAB 10/05/15 Aspirin* (Aspirin* Chew) 81 Mg Tab.chew, 81 MG PO DAILY, TAB.CHEW 10/05/15 Allergies Allergies: Coded Allergies: No Known Allergy (Unverified , 08/04/16) PMhx/Soc History of Surgery: Yes (ICD PLACEMENT) Anesthesia Reaction: No Hx Neurological Disorder: No Hx Respiratory Disorders: Yes (CHF) Hx Cardiac Disorders: Yes (CHF) Hx Psychiatric Problems: No Hx Miscellaneous Medical Probl: Yes Hx Alcohol Use: No Hx Substance Use: No Hx Tobacco Use: No Smoking Status: Never smoker Physical Exam Vitals Vital Signs Date Time Temp Pulse Resp B/P Pulse Ox O2 Delivery O2 Flow Rate FiO2 09/28/16 03:05 Nasal Cannula 2.5 09/28/16 03:05 97 19 129/88 98 Nasal Cannula 2.5 09/28/16 01:38 97.9 100 18 120/84 98 Physical Exam Const: [] Head: Atraumatic Eyes: Normal Conjunctiva ENT: Normal External Ears, Nose and Mouth. Neck: Full range of motion..~ No meningismus. Resp: Clear to auscultation bilaterally Cardio: Regular rate and rhythm, no murmurs Abd: Soft, non tender, non distended. Normal bowel sounds Skin: No petechiae or rashes Back: No midline or flank tenderness Ext: No cyanosis, or edema Neur: Awake and alert Psych: Normal Mood and Affect Procedures/MDM EKG: Rate/Rhythm: Normal Sinus Rhythm QRS, ST, T-waves: No changes consistent w/ acute ischemia Impression: No evidence of ischemia or arrhythmia Chest X-ray 1V Interpreted by me: Soft Tissue: No acute abnormalities Bones: No acute abnormalities Mediastinum/Cardiac Silhouette/Lungs: No acute abnormalities Patient's heart failure symptoms is concerning for acute decompensation and will require inpatient workup and monitoring. Further w/u for ischemia, arrhythmia, PE or dissection will be deferred to the inpatient team. Accepting Care Team: Current data and ongoing care discussed. Time: 3 AM Primary Provider: Hospitalist Consulting: [XOXOXO] Outstanding Data: none Departure Diagnosis: Primary Impression: Shortness of breath Additional Impression: CHF (congestive heart failure) Qualified Code: I50.9 - Congestive heart failure, unspecified congestive heart failure chronicity, unspecified congestive heart failure type Condition: Serious LYNDSEY LAZO Sep 28, 2016 03:26
[2016-09-28 03:38] LABS: INR 0.87; PROTIME 11.8 Sec (12.2-14.2); PT RATIO 0.9
[2016-09-28 03:39] LABS: PARTIAL THROMBOPLASTIN TIME 30.3 Sec (25.0-35.0)
[2016-09-28 03:42] LABS: ALBUMIN 3.8 g/dl (3.3-4.9); ALBUMIN/GLOBULIN RATIO 1.15; BILIRUBIN,INDIRECT 0.1 mg/dl (0-1.1); BILIRUBIN,TOTAL 0.1 mg/dl (0.2-1.3); CALCIUM 8.9 mg/dl (8.4-10.2); CREATININE 0.86 mg/dl (0.61-1.24); POTASSIUM 4.1 mmol/L (3.5-5.1); TOTAL PROTEIN 7.1 g/dl (6.1-8.1)
[2016-09-28 03:53] LABS: TROPONIN-I 0.109 ng/ml (0.00-0.12)
[2016-09-28 04:01] VITALS: PULSE 103
[2016-09-28 04:03] VITALS: BP 130/87; PULSE 100; RESP 22
[2016-09-28 04:31] VITALS: Ht 170.2 cm; Wt 79.0 kg
--- NOTE | 2016-09-28 04:59 | RADRPT ---
PROCEDURE: CHEST - 1 VIEW CLINICAL INDICATION: 36-year-old male with shortness of breath. TECHNIQUE: A single frontal AP portable upright view of the chest was performed. The images were reviewed on a PACS workstation. COMPARISON: Chest x-ray September 22, 2016. FINDINGS: There is a left-sided AICD device. The patient has had a prior median sternotomy. The cardiomedias tinal silhouette is moderately enlarged but without significant interval change. There is mild elev ation right hemidiaphragm. There is minimal right basilar subsegmental atelectasis. There is no ev idence for an infiltrate. There is no evidence for congestive heart failure. There is no evidence f or pneumothorax. IMPRESSION: 1. Left-sided AICD device. 2. Status post median sternotomy. 3. Cardiomegaly. 4. Mild elevation right hemidiaphragm with minimal right basilar subsegmental atelectasis. .Ishan Uriarte MD, MD Date Time Electronically viewed and signed by .Ishan Uriarte MD, on 09/28/2016 04:59 .M/
--- NOTE | 2016-09-28 04:59 | HP ---
DATE OF ADMISSION: 09/28/2016 TIME SEEN: 3 a.m. CHIEF COMPLAINT: Shortness of breath. HISTORY OF PRESENT ILLNESS: The patient is a 36-year-old male with a history of hypertension, coron maite artery disease, CHF, congenital heart disease status post surgery during childhood, methamphetam ine and marijuana abuse, CHF, cardiomyopathy with severe systolic dysfunction with EF of 20% and sta ge IV diastolic dysfunction, placement of ICD who presented to the emergency department complaining of shortness of breath. The patient had been admitted here multiple times including myself in the p ast. He was also admitted here recently for shortness of breath and was just discharged 5 days ago after he initially presented with syncope. His syncope was considered vasovagal by cardiology. His ICD was interrogated on 09/22/2016. The patient is now returning back with shortness of breath maite t started a few hours prior to presentation to the ER. He denied any chest pain, any syncopal episo de, nausea, vomiting, palpitation. No fever or chills. When he presented to the ER, he was tachycardic with a heart rate of 100. Otherwise, the rest of hi s vitals were stable. Labs show a BUN of 24. Otherwise, CBC and CMP are unremarkable. His first t roponin and BNP are currently pending. Chest x-ray was not done in the ER so far and from 5 days ag o it which showed marked cardiomegaly but the lungs were clear. I do not see any medication that hernandez s been given to the patient in the ER today. REVIEW OF SYSTEMS: A 12-point review of systems performed and negative except as mentioned in HPI. PAST MEDICAL HISTORY: As per HPI. PAST SURGICAL HISTORY: ICD placement and cardiac surgery for congenital heart disease when he was a child. SOCIAL HISTORY: Marijuana and methamphetamine abuse. ALLERGIES: NO KNOWN DRUG ALLERGY. HOME MEDICATIONS: 1. Combivent. 2. Lipitor. 3. Coreg. 4. Lisinopril. 5. Aldactone. 6. Aspirin. 7. Lasix. PHYSICAL EXAMINATION: VITAL SIGNS: Stable. GENERAL: The patient is lying in bed, looks slightly uncomfortable because of shortness of breath. He is, however, alert and oriented and answering questions appropriately. HEENT: No obvious head deformity. Pupils are reactive to light. Extraocular muscles intact. CARDIOVASCULAR: Regular rate and rhythm. No extra heart sounds. LUNGS: Clear to auscultation. ABDOMEN: Soft, nontender, nondistended. Positive bowel sounds. EXTREMITIES: No edema. NEUROLOGIC: No focal deficits. LABORATORY: BUN 24. Otherwise, CBC and CMP are unremarkable. First troponin and BNP are currently pending. IMAGING: Chest x-ray from 6 days ago with results as mentioned in the HPI. IMPRESSION: 1. Shortness of breath, most likely secondary to congestive heart failure exacerbation. 2. History of cardiomyopathy with severe systolic dysfunction with ejection fraction of 20% and sta ge IV diastolic dysfunction, status post implantable cardioverter defibrillator placement. 3. History of congenital heart disease, status post surgery as a child. 4. Hypertension, currently blood pressure within goal. 5. Methamphetamine and marijuana abuse. PLAN: Admit to telemetry unit. He will be continued with his home medications which include a beta renetta, AMPARO inhibitor, and Aldactone. He will be placed on IV Lasix. Strict ins and outs and chase l monitor his urine output and adjust his diuretics accordingly. Will continue his Albuterol/Atrove nt. Will place a cardiology consult. Further workup and management per clinical course. Dictated By: LYNDSEY CARLIN/SARAH Conf#: [id number] DID#: [id number]
[2016-09-28] MEDS ORDERED: ONDANSETRON 4 MG INJ IV PRN (05:00)
[2016-09-28] MEDS ORDERED: NITROGLYCERIN (SL) 0.4 MG TAB SL PRN (05:00)
[2016-09-28] MEDS ORDERED: morphine 2 MG INJ IV PRN (05:00)
[2016-09-28] MEDS ORDERED: ACETAMINOPHEN 500 MG TAB PO PRN (05:00)
[2016-09-28] MEDS ORDERED: FUROSEMIDE 20 MG INJ IV SCH (06:00)
[2016-09-28 07:43] VITALS: BP 128/84; RESP 20
--- NOTE | 2016-09-28 08:02 | CONS ---
Date/Time of Note Date/Time of Note DATE: 09/28/16 TIME: 07:56 Assessment/Plan Assessment/Plan Chief Complaint/Hosp Course Acute on chronic systolic heart failure: Mild CHF by exam this time. Unclear how compliant pt is with meds. H/oSyncope: Occurred 09/20. ICD did not show any sustained arrhythmias or shocks. Likely vasovagal by history. 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 Extremities warm and no overt sign of low cardiac output state. s/p [employer] ICD 2014 for syncope Prior cardiac surgery as a child (unknown details) Meth abuse: per pt he stopped one week ago -lasix 20mg IV BID for now, anticipate PO tomorrow -continue ASA, lipitor -coreg 12.5mg -lisinopril 5mg -aldactone 25mg Problems: Consultation Date/Type/Reason Admit Date/Time Sep 28, 2016 at 02:35 Date of Consultation: Sep 28, 2016 Type of Consultation: Cardiology Referring Provider: LYNDSEY BAUTISTA MD Hx of Present Illness 36 yo M with a h/o CAD (PILLOW FILLER LAD per report), mixed cardiomyopathy (likely mostly nonischemic in setting of meth abuse) with EF 20%, s/p ICD 2014 for syncope, prior cardiac surgery as a child (unknown details), meth abuse, who presented with SOB. The pt was hospitalized twice last week. The first for syncope with normal ICD interrogation, likely vasovagal. The second for SOB with no e/o CHF. He notes that he could not sleep yesterday due to SOB. He tells me that he stopped using meth as of last week. No chest pain or syncope. per hPI Past Medical History per HPI Social History Smoking Status: Light tobacco smoker Exam/Review of Systems Vital Signs Vitals Vital Signs Date Time Temp Pulse Resp B/P Pulse Ox O2 Delivery O2 Flow Rate FiO2 09/28/16 07:43 97.7 99 20 128/84 100 09/28/16 04:20 Nasal Cannula 2.0 Exam Constitutional: oriented, No alert (drowsy but responsive and oriented ) Psych: no complaints Head: atraumatic, normocephalic Eyes: nl conjunctiva ENMT: nl external ears & nose Neck: jvd (8cm) Respiratory: crackles/rales, No clear to auscultation (left sided wheezing, mild crackles ) Cardiovascular: regular rate and rhythm, No edema, No systolic murmur Gastrointestinal: non-tender, soft, No distended Extremities: normal pulses, other (warm) Neurological: nl mental status Skin: No rash or lesions Results Result Diagram: 09/28/16 0232 09/28/16 0232 Results 24 hrs Laboratory Tests Test 09/28/16 02:32 White Blood Count 10.5 # Red Blood Count 5.10 Hemoglobin 15.3 Hematocrit 47.8 Mean Corpuscular Volume 93.7 Mean Corpuscular Hemoglobin 30.0 Mean Corpuscular Hemoglobin Concent 32.0 Red Cell Distribution Width 14.3 Platelet Count 248 Mean Platelet Volume 10.7 H Neutrophils % 57.4 Lymphocytes % 32.3 Monocytes % 6.2 Eosinophils % 2.6 Basophils % 1.0 Nucleated Red Blood Cells % 0.0 Neutrophils # 6.1 Lymphocytes # 3.4 H Monocytes # 0.7 Eosinophils # 0.3 Basophils # 0.1 Nucleated Red Blood Cells # 0.0 Prothrombin Time 11.8 L Prothrombin Time Ratio 0.9 INR International Normalized Ratio 0.87 Activated Partial Thromboplast Time 30.3 Sodium Level 140 Potassium Level 4.1 Chloride Level 106 Carbon Dioxide Level 27 Anion Gap 11 Blood Urea Nitrogen 24 H Creatinine 0.86 Glucose Level 92 Calcium Level 8.9 Total Bilirubin 0.1 L Direct Bilirubin 0.00 Indirect Bilirubin 0.1 Aspartate Amino Transf (AST/SGOT) 33 Alanine Aminotransferase (ALT/SGPT) 44 Alkaline Phosphatase 74 Troponin I 0.109 B-Type Natriuretic Peptide 1800 H Total Protein 7.1 Albumin 3.8 Globulin 3.30 H Albumin/Globulin Ratio 1.15 Medications Medications Current Medications Aspirin (Aspirin) 81 mg DAILY PO ; Start 09/28/16 at 09:00 Atorvastatin Calcium (Lipitor) 80 mg QHS PO ; Start 09/28/16 at 21:00 Carvedilol (Coreg) 12.5 mg BID PO ; Start 09/28/16 at 09:00 Lisinopril (Zestril) 5 mg DAILY PO ; Start 09/28/16 at 09:00 Enoxaparin Sodium (Lovenox) 40 mg DAILY SC ; Start 09/28/16 at 09:00 Morphine Sulfate (morphine) 2 mg Q4H PRN IV PAIN; Start 09/28/16 at 05:00 Acetaminophen (Tylenol Tab) 500 mg Q6H PRN PO PAIN AND OR ELEVATED TEMP; Start 09/28/16 at 05:00 Ondansetron HCl (Zofran Inj) 4 mg Q6H PRN IV NAUSEA AND/OR VOMITING; Start 04/04 at 05:00 Nitroglycerin (Nitroglycerin (Sl Tab) 0.4 Mg) 1 tab Q5M PRN SL ANGINA; Start at 05:00 Spironolactone (Aldactone) 25 mg DAILY PO ; Start 09/28/16 at 09:00 Albuterol (Ventolin Hfa) 1 puff QID INH ; Start 09/28/16 at 09:00 Ipratropium [place] (Atrovent Hfa) 1 puff QID INH ; Start 09/28/16 at 09:00 SUSAN RIVERO Sep 28, 2016 08:02
[2016-09-28 08:40] VITALS: PULSE 93
[2016-09-28] MEDS ORDERED: IPRATROPIUM (HFA) 12.9 GM INHALER INH SCH (09:00)
[2016-09-28] MEDS ORDERED: NON-FORMULARY/PATIENT OWN MED (Albuterol/Ipratropium* (Combivent Respimat*) 1 PUFF) INHALATION SCH (09:00)
[2016-09-28] MEDS ORDERED: SPIRONOLACTONE 25 MG TAB PO SCH (09:00)
[2016-09-28] MEDS ORDERED: ASPIRIN 81 MG TAB PO SCH (09:00)
[2016-09-28] MEDS ORDERED: LISINOPRIL 5 MG TAB PO SCH (09:00)
[2016-09-28] MEDS ORDERED: SPIRONOLACTONE (5 MG/ML PO SYG) PO SCH (09:00)
[2016-09-28] MEDS ORDERED: ALBUTEROL 18 GM INHALER INH SCH (09:00)
[2016-09-28] MEDS ORDERED: ENOXAPARIN 40 MG/0.4 ML SYG SC SCH (09:00)
[2016-09-28 12:10] VITALS: BP 104/61; RESP 20
[2016-09-28 12:23] VITALS: PULSE 95
--- NOTE | 2016-09-28 16:09 | DS ---
Date/Time of Note Date/Time of Note DATE: 09/28/16 TIME: 16:07 Discharge Summary Admission/Discharge Info Admit Date/Time Sep 28, 2016 at 02:35 Discharge Date/Time Sep 28, 2016 at 13:50 Final Diagnosis 1. Shortness of breath, most likely secondary to congestive heart failure exacerbation. 2. History of cardiomyopathy with severe systolic dysfunction with ejection fraction of 20% and stage IV diastolic dysfunction, status post implantable cardioverter defibrillator placement. 3. History of congenital heart disease, status post surgery as a child. 4. Hypertension, currently blood pressure within goal. 5. Methamphetamine and marijuana abuse. 6. Non Compliance to therapy: patient repeatedly leaves hospital Against medical advice. . Patient Condition: Stable Consults Danyelle: Cardio . Hospital Course This is an extremely noncompliant 36-year-old male with known severe cardiomyopathy and chronic substance abuse who repeatedly comes in with CHF exacerbation and leaves the hospital AGAINST MEDICAL ADVICE as soon as he feels better. He never waits for prescriptions, he never speaks to the physician. As his routine with him, I was unable to evaluate him today, again he left the hospital before my visit. He is overall prognosis is very poor due to this, and no instructions her discharge prescriptions were given. . Home Meds Active Scripts Albuterol/Ipratropium* (Combivent Respimat*) 20-100 Mcg/Inh - 4 Gm Aer.w.adap, 1 PUFF INHALATION QID, #1 INHALER Prov:EDIL FAJARDO 07/24/16 Furosemide* (Furosemide*) 40 Mg Tablet, 40 MG PO DAILY for 30 Days, TAB Prov:HEATH LARKIN 05/15/16 Lisinopril* (Lisinopril*) 5 Mg Tablet, 5 MG PO DAILY for 30 Days, TAB Prov:MARINA DELGADO MD 05/05/16 Spironolactone* (Aldactone*) 5 Mg/Ml (COMPOUNDED) Susp, 25 MG PO DAILY for 30 Days Prov:MARINA DELGADO MD 05/05/16 Reported Medications Carvedilol* (Carvedilol*) 12.5 Mg Tablet, 12.5 MG PO BID, #60 TAB 10/05/15 Atorvastatin* (Atorvastatin*) 80 Mg Tablet, 80 MG PO QHS, #30 TAB 10/05/15 Aspirin* (Aspirin* Chew) 81 Mg Tab.chew, 81 MG PO DAILY, TAB.CHEW 10/05/15 Primary Care Provider Care Physician No Primary Pending Labs Laboratory Tests Test 09/28/16 02:32 09/28/16 09:16 09/28/16 11:23 White Blood Count 10.510^3/ul (4.8-10.8) Red Blood Count 5.1010^6/ul (4.70-6.10) Hemoglobin 15.3g/dl (14.0-18.0) Hematocrit 47.8% (42.0-52.0) Mean Corpuscular Volume 93.7fl (82.0-101.0) Mean Corpuscular Hemoglobin 30.0pg (29.0-33.0) Mean Corpuscular Hemoglobin Concent 32.0g/dl (32.0-37.0) Red Cell Distribution Width 14.3% (11.5-14.5) Platelet Count 55935^3/UL (140-415) Mean Platelet Volume 10.7fl (7.4-10.4) Neutrophils % 57.4% (39.0-77.0) Lymphocytes % 32.3% (15.0-51.0) Monocytes % 6.2% (0.0-11.0) Eosinophils % 2.6% (0.0-7.0) Basophils % 1.0% (0.0-2.0) Nucleated Red Blood Cells % 0.0/100WBC (0.0-0.0) Neutrophils # 6.110^3/ul (1.6-7.5) Lymphocytes # 3.410^3/ul (0.8-2.9) Monocytes # 0.710^3/ul (0.3-0.9) Eosinophils # 0.310^3/ul (0.0-0.5) Basophils # 0.110^3/ul (0.0-0.1) Nucleated Red Blood Cells # 0.010^3/ul (0.0-0.0) Prothrombin Time 11.8Sec (12.2-14.2) Prothrombin Time Ratio 0.9 INR International Normalized Ratio 0.87 Activated Partial Thromboplast Time 30.3Sec (25.0-35.0) Sodium Level 140mmol/L (135-144) Potassium Level 4.1mmol/L (3.5-5.1) Chloride Level 106mmol/L (97-110) Carbon Dioxide Level 27mmol/L (21-31) Anion Gap 11 (8-16) Blood Urea Nitrogen 24mg/dl (7-20) Creatinine 0.86mg/dl (0.61-1.24) Glucose Level 92mg/dl (70-220) Calcium Level 8.9mg/dl (8.4-10.2) Total Bilirubin 0.1mg/dl (0.2-1.3) Direct Bilirubin 0.00mg/dl (0.00-0.20) Indirect Bilirubin 0.1mg/dl (0-1.1) Aspartate Amino Transf (AST/SGOT) 33IU/L (15-46) Alanine Aminotransferase (ALT/SGPT) 44IU/L (13-69) Alkaline Phosphatase 74IU/L (42-121) Troponin I 0.109ng/ml (0.00-0.12) 0.091ng/ml (0.00-0.12) 0.089ng/ml (0.00-0.12) B-Type Natriuretic Peptide 1800PG/ML (0-125) Total Protein 7.1g/dl (6.1-8.1) Albumin 3.8g/dl (3.3-4.9) Globulin 3.30g/dl (1.3-3.2) Albumin/Globulin Ratio 1.15 EDIL FAJARDO Sep 28, 2016 16:09
[2016-09-28] MEDS ORDERED: ATORVASTATIN 80 MG TAB PO SCH (21:00)
== END 2016-09-28 13:50 | disposition left against medical advice (07) | DRG 293 ==
LOC: E/R 01:22 → MS4 02:35
PROVIDERS: ADMIT Internal Medicine; ATTEND Internal Medicine
DX: I11.0 Hypertensive heart disease with heart failure (principal); I42.9 Cardiomyopathy, unspecified; I50.43 Acute on chronic combined systolic (congestive) and diastolic (congestive) heart failure; F15.10 Other stimulant abuse, uncomplicated; F12.10 Cannabis abuse, uncomplicated; Q24.9 Congenital malformation of heart, unspecified; Z95.810 Presence of automatic (implantable) cardiac defibrillator; Z79.82 Long term (current) use of aspirin; Z91.19 Patient's noncompliance with other medical treatment and regimen
CPT/HCPCS: 36415; 71010; 80053; 83880; 84484; 85025; 85610; 85730; 87081; 93005; J1940; J1650

== ENCOUNTER 2016-11-05 02:22 | Inpatient (IN) | payer MEDICAID ==
[~2016-11-05] VITALS: Ht 175.3 cm; Wt 77.3 kg
[2016-11-05] VITALS (9 sets, daily range): BP systolic 101–109; BP diastolic 67–77; PULSE 86–98; RESP 18–21; TEMP 97.7; Ht 175.3 cm; Wt 77.3 kg
[2016-11-05] MEDS ORDERED: ALBUTEROL 0.083% (NEB) 2.5 MG/3 ML AMP INH STA (03:11)
[2016-11-05] MEDS ORDERED: AZITHROMYCIN 500MG/NS (PMX) 250 ML IV STA (03:11)
[2016-11-05] MEDS ORDERED: CEFTRIAXONE 1 GM/50 ML (PMX) 50 ML IVPB STA (03:11)
[2016-11-05 03:47] LABS: ADD SCAN DIFF NO
[2016-11-05 04:07] LABS: BASOPHIL # 0.1 10^3/ul (0.0-0.1); BASOPHILS % 0.5 % (0.0-2.0); EOSINOPHILS # 0.1 10^3/ul (0.0-0.5); EOSINOPHILS % 1.4 % (0.0-7.0); HEMATOCRIT 48.3 % (42.0-52.0); LYMPHOCYTES # 2.8 10^3/ul (0.8-2.9); LYMPHOCYTES % 28.5 % (15.0-51.0); MEAN CORPUSCULAR HEMOGLOBIN 30.5 pg (29.0-33.0); MEAN CORPUSCULAR HGB CONC 33.1 g/dl (32.0-37.0); MEAN PLATELET VOLUME 10.4 fl (7.4-10.4); MONOCYTE # 0.6 10^3/ul (0.3-0.9); MONOCYTES % 6.1 % (0.0-11.0); NEUTROPHIL # 6.2 10^3/ul (1.6-7.5); NEUTROPHILS % 63.3 % (39.0-77.0); PLATELET COUNT 257 10^3/UL (140-415); RED BLOOD COUNT 5.25 10^6/ul (4.70-6.10); RED CELL DISTRIBUTION WIDTH 13.9 % (11.5-14.5); WHITE BLOOD COUNT 9.7 10^3/ul (4.8-10.8)
[2016-11-05 04:12] LABS: ALBUMIN/GLOBULIN RATIO 0.88; BILIRUBIN,INDIRECT 0.3 mg/dl (0-1.1); BILIRUBIN,TOTAL 0.3 mg/dl (0.2-1.3); CALCIUM 7.9 mg/dl (8.4-10.2); CREATININE 0.95 mg/dl (0.61-1.24); POTASSIUM 3.3 mmol/L (3.5-5.1); TOTAL PROTEIN 6.4 g/dl (6.1-8.1)
--- NOTE | 2016-11-05 04:21 | RADRPT ---
PROCEDURE: CHEST - 1 VIEW CLINICAL INDICATION: 36-year-old male with shortness of breath. TECHNIQUE: A single frontal AP upright portable view of the chest was performed. The images were reviewed on a PACS workstation. COMPARISON: Chest x-ray September 28, 2016. FINDINGS: There is a left-sided sided AICD device. The patient has had a prior median sternotomy. The cardio mediastinal silhouette is moderately enlarged but without significant interval change. Pulmonary va scular congestion. Is mild elevation right hemidiaphragm. There is no evidence for focal consolida tion. There is no evidence for pneumothorax. IMPRESSION: 1. Left-sided AICD device. 2. Status post median sternotomy. 3. Cardiomegaly. 4. Pulmonary vascular congestion. .Ishan Uriarte MD, Date Time Electronically viewed and signed by .Ishan Uriarte MD, on 11/05/2016 04:20 .M/
[2016-11-05 04:24] LABS: TROPONIN-I 0.024 ng/ml (0.00-0.12)
--- NOTE | 2016-11-05 04:54 | ERA ---
ER Documentation Chief Complaint Date/Time DATE: 11/05/16 TIME: 04:49 Chief Complaint chest pain with sob x 2 days HPI This a 36-year-old male with a history of hypertension, coronary artery disease , CHF, congenital heart disease status post surgery during childhood, methamphetamine and marijuana abuse, CHF, cardiomyopathy with severe systolic dysfunction with EF of 20% and stage IV diastolic dysfunction, placement of ICD who presented to the emergency department complaining of shortness of breath and cough. Patient is extremely poor historian. He is very sleepy and will not answer my questions in detail. Just tells me he has been short of breath for 2 days and has dyspnea on exertion. He also says his had a cough for 3-4 days as well. Says he does not think he has had a fever. Denies any chest pain. No lower extremity swelling no abdominal pain nausea vomiting diarrhea ROS All systems reviewed and are negative except as per history of present illness. Medications Home Meds Active Scripts Albuterol/Ipratropium* (Combivent Respimat*) 20-100 Mcg/Inh - 4 Gm Aer.w.adap, 1 PUFF INHALATION QID, #1 INHALER Prov:EDIL FAJARDO 07/24/16 Furosemide* (Furosemide*) 40 Mg Tablet, 40 MG PO DAILY for 30 Days, TAB Prov:HEATH LARKIN 05/15/16 Lisinopril* (Lisinopril*) 5 Mg Tablet, 5 MG PO DAILY for 30 Days, TAB Prov:MARINA DELGADO MD 05/05/16 Spironolactone* (Aldactone*) 5 Mg/Ml (COMPOUNDED) Susp, 25 MG PO DAILY for 30 Days Prov:MARINA DELGADO MD 05/05/16 Reported Medications Carvedilol* (Carvedilol*) 12.5 Mg Tablet, 12.5 MG PO BID, #60 TAB 10/05/15 Atorvastatin* (Atorvastatin*) 80 Mg Tablet, 80 MG PO QHS, #30 TAB 10/05/15 Aspirin* (Aspirin* Chew) 81 Mg Tab.chew, 81 MG PO DAILY, TAB.CHEW 10/05/15 Allergies Allergies: Coded Allergies: No Known Allergy (Unverified , 08/04/16) PMhx/Soc History of Surgery: Yes (Open heart SX when child, pacemaker placement,) Anesthesia Reaction: No Hx Neurological Disorder: No Hx Respiratory Disorders: No (SOB) Hx Cardiac Disorders: Yes (CHF, HTN, CAD, congential heart disease) Hx Psychiatric Problems: No Hx Miscellaneous Medical Probl: No Hx Alcohol Use: No Hx Substance Use: Yes Hx Tobacco Use: Yes Smoking Status: Current every day smoker FmHx Family History: No coronary disease Physical Exam Vitals Vital Signs Date Time Temp Pulse Resp B/P Pulse Ox O2 Delivery O2 Flow Rate FiO2 11/05/16 04:32 94 16 112/81 100 Nasal Cannula 2.0 11/05/16 03:40 Nasal Cannula 2 11/05/16 03:34 98 20 98 Nasal Cannula 2.0 11/05/16 02:26 98.3 87 20 116/72 100 Physical Exam Const: Well-developed, well-nourished Head: Atraumatic, normocephalic Eyes: Normal Conjunctiva, PERRLA, EOMI, normal sclera, no nystagmus ENT: Normal External Ears, Nose and Mouth, moist mucus membranes. Neck: Full range of motion. No meningismus, no lymphadenopathy. Resp: Slight increased work of breathing with diffuse scattered rhonchi and crackles in the bases, no respiratory distress Cardio: Tachycardia, S1 S2 present Abd: Soft, non tender x 4, non distended. Normal bowel sounds, no guarding or rebound, no pulsitile abdominal masses or bruits Skin: No petechiae or rashes, no ecchymosis , no maculopapular rash Back: No midline or flank tenderness Ext: No cyanosis, or edema, FROM x 4, normal inspection, neurovascularly intact x 4 Neur: Awake and alert, STR 5/5 x 4, sensation intact x 4, no focal findings, cerebellum intact Psych: Normal Mood and Affect Result Diagram: 11/05/16 0325 11/05/16 0325 Results 24 hrs Laboratory Tests Test 11/05/16 03:25 White Blood Count 9.710^3/ul Red Blood Count 5.2510^6/ul Hemoglobin 16.0g/dl Hematocrit 48.3% Mean Corpuscular Volume 92.0fl Mean Corpuscular Hemoglobin 30.5pg Mean Corpuscular Hemoglobin Concent 33.1g/dl Red Cell Distribution Width 13.9% Platelet Count 16243^3/UL Mean Platelet Volume 10.4fl Neutrophils % 63.3% Lymphocytes % 28.5% Monocytes % 6.1% Eosinophils % 1.4% Basophils % 0.5% Nucleated Red Blood Cells % 0.0/100WBC Neutrophils # 6.210^3/ul Lymphocytes # 2.810^3/ul Monocytes # 0.610^3/ul Eosinophils # 0.110^3/ul Basophils # 0.110^3/ul Nucleated Red Blood Cells # 0.010^3/ul Sodium Level 142mmol/L Potassium Level 3.3mmol/L Chloride Level 105mmol/L Carbon Dioxide Level 25mmol/L Anion Gap 15 Blood Urea Nitrogen 29mg/dl Creatinine 0.95mg/dl Glucose Level 99mg/dl Lactic Acid Level 1.9mmol/L Calcium Level 7.9mg/dl Total Bilirubin 0.3mg/dl Direct Bilirubin 0.00mg/dl Indirect Bilirubin 0.3mg/dl Aspartate Amino Transf (AST/SGOT) 35IU/L Alanine Aminotransferase (ALT/SGPT) 46IU/L Alkaline Phosphatase 91IU/L Troponin I 0.024ng/ml B-Type Natriuretic Peptide 4400PG/ML Total Protein 6.4g/dl Albumin 3.0g/dl Globulin 3.40g/dl Albumin/Globulin Ratio 0.88 Current Medications Medications (Trade) Dose Ordered Sig/Gayle Route PRN Reason Start Time Stop Time Status Last Admin Dose Admin Albuterol 7.5 mg 7.5 mg ONCE STAT INH 11/05/16 03:11 11/05/16 03:15 DC 11/05/16 03:34 Azithromycin 250 ml @ 250 mls/hr ONCE STAT IV 11/05/16 03:11 11/05/16 04:10 DC 11/05/16 03:11 Ceftriaxone Sodium (Rocephin) 50 ml @ 100 mls/hr ONCE STAT IVPB 11/05/16 03:11 11/05/16 03:40 DC 11/05/16 03:48 Furosemide (Lasix) 40 mg ONCE ONCE IV 11/05/16 05:00 11/05/16 05:01 Procedures/[facility] EKG: Rate/Rhythm: Normal sinus rhythm with bifascicular block QRS, ST, QT: NORMAL CT, QRS, QT] Impression: Abnormal EKG: PROCEDURE: CHEST - 1 VIEW CLINICAL INDICATION: 36-year-old male with shortness of breath. TECHNIQUE: A single frontal AP upright portable view of the chest was performed. The images were reviewed on a PACS workstation. COMPARISON: Chest x-ray September 28, 2016. FINDINGS: There is a left-sided sided AICD device. The patient has had a prior median sternotomy. The cardiomediastinal silhouette is moderately enlarged but without significant interval change. Pulmonary vascular congestion. Is mild elevation right hemidiaphragm. There is no evidence for focal consolidation. There is no evidence for pneumothorax. IMPRESSION: 1. Left-sided AICD device. 2. Status post median sternotomy. 3. Cardiomegaly. 4. Pulmonary vascular congestion. .Ishan Uriarte MD, MD Date Time Electronically viewed and signed by .Ishan Uriarte MD, MD on 11/05/2016 04:20 .M/ CC: DAVID SUAZO DO Patient's lactate is 1.9. He is not septic. I did draw blood cultures and antibiotics because of the cough. He likely has bronchitis. He does have vascular congestion. The patient's been admitted here multiple times in the past for pulmonary vascular congestion/ volume overload. We will admit him for CHF and medication changes that need to be made. There is also question of compliance. Does have a history of substance abuse I will add a urine drug screen Departure Diagnosis: Primary Impression: CHF exacerbation Qualified Code: I50.9 - Acute on chronic congestive heart failure, unspecified congestive heart failure type Condition: Stable DAVID SUAZO DO Nov 05, 2016 04:54
[2016-11-05 04:57] LABS: INR 1.06; PROTIME 13.8 Sec (12.2-14.2); PT RATIO 1.1
[2016-11-05 04:58] LABS: PARTIAL THROMBOPLASTIN TIME 31.5 Sec (25.0-35.0)
[2016-11-05] MEDS ORDERED: FUROSEMIDE 40 MG INJ IV ONE ×2 (05:00→11:23)
[2016-11-05] MEDS ORDERED: ACETAMINOPHEN 325 MG TAB PO PRN ×2 (05:00→08:30)
[2016-11-05] MEDS ORDERED: ONDANSETRON 4 MG INJ IV PRN ×2 (05:00→08:30)
--- NOTE | 2016-11-05 08:24 | HP ---
Date/Time of Note Date/Time of Note DATE: 11/05/16 TIME: 08:22 Assessment/Plan Lines/Catheters IV C[facility] (from [facility]): Peripheral IV Assessment/Plan Assessment/Plan IMPRESSION: 1. Shortness of breath, most likely secondary to congestive heart failure exacerbation. 2. History of cardiomyopathy with severe systolic dysfunction with ejection fraction of 20% and stage IV diastolic dysfunction, status post implantable cardioverter defibrillator placement. 3. History of congenital heart disease, status post surgery as a child. 4. Hypertension, currently blood pressure within goal. 5. Methamphetamine and marijuana abuse. PLAN: Admit to telemetry unit. He will be continued with his home medications which include a beta renetta, AMPARO inhibitor, and Aldactone. He will be placed on IV Lasix. Strict ins and outs and will monitor his urine output and adjust his diuretics accordingly. Will continue his Albuterol/Atrovent. Will place a cardiology consult. Further workup and management per clinical course. HPI/ROS Admit Date/Time Admit Date/Time Hx of Present Illness The patient is a 36-year-old male with a history of hypertension, coronary artery disease, CHF, congenital heart disease status post surgery during childhood, methamphetamine and marijuana abuse, CHF, cardiomyopathy with severe systolic dysfunction with EF of 20% and stage IV diastolic dysfunction, placement of ICD who presented to the emergency department complaining of shortness of breath. The patient had been admitted here multiple times including myself in the past. last admission was a month ago. He was also admitted here about a week prior to last admission after he initially presented with syncope. His syncope was considered vasovagal by cardiology. His ICD was interrogated on 09/22/2016. The patient is now returning back with shortness of breath. He denied any chest pain, any syncopal episode, nausea, vomiting, palpitation. No fever or chills. He does however appear short of breath and diaphoretic. When he presented to the ER, he was tachycardic with a heart rate of 100. Otherwise, the rest of his vitals were stable. Labs show k of 3.3. Otherwise, CBC and CMP are unremarkable. His first troponin is neg and BNP is about 4400. Chest x-ray showed the following; 1. Left-sided AICD device. 2. Status post median sternotomy. 3. Cardiomegaly. 4. Pulmonary vascular congestion. PMH/Family/Social Social History Smoking Status: Current every day smoker Exam/Review of Systems Vital Signs Vitals Vital Signs Date Time Temp Pulse Resp B/P Pulse Ox O2 Delivery O2 Flow Rate FiO2 11/05/16 08:18 97.7 94 16 124/95 99 Nasal Cannula 2.0 Exam Exam GENERAL: The patient is lying in bed, looks slightly uncomfortable because of shortness of breath. He is, however, alert and oriented and answering questions appropriately. HEENT: No obvious head deformity. Pupils are reactive to light. Extraocular muscles intact. CARDIOVASCULAR: Regular rate and rhythm. No extra heart sounds. LUNGS: Clear to auscultation. ABDOMEN: Soft, nontender, nondistended. Positive bowel sounds. EXTREMITIES: No edema. NEUROLOGIC: No focal deficits. Labs Result Diagram: 11/05/16 0325 11/05/16 0325 LYNDSEY BAUTISTA MD Nov 05, 2016 08:24
[2016-11-05] MEDS ORDERED: ALBUTEROL/IPRATROPIUM (NEB) 3 ML AMP HHN PRN (08:30)
[2016-11-05] MEDS ORDERED: NACL 0.9% 3 ML SYG IV SCH (08:30)
[2016-11-05] MEDS ORDERED: NITROGLYCERIN (SL) 0.4 MG TAB SL PRN (08:30)
[2016-11-05] MEDS ORDERED: morphine 2 MG INJ IV PRN (08:30)
[2016-11-05] MEDS: HEPARIN 5,000 UNIT/0.5 ML VIAL SC SCH ×2 (09:00→21:46)
[2016-11-05] MEDS ORDERED: FUROSEMIDE 40 MG INJ IV SCH (09:00)
[2016-11-05] MEDS: ASPIRIN 81 MG TAB PO SCH (10:09)
[2016-11-05] MEDS: SPIRONOLACTONE 25 MG TAB PO SCH (10:11)
[2016-11-05] MEDS: LISINOPRIL 5 MG TAB PO SCH (10:11)
[2016-11-05] MEDS: ALBUTEROL/IPRATROPIUM (NEB) 3 ML AMP HHN SCH ×5 (10:50→23:26)
[2016-11-05] MEDS ORDERED: NITROGLYCERIN (SL) 0.4 MG TAB SL ONE (11:30)
--- NOTE | 2016-11-05 11:36 | EN ---
Date/Time of Note Date/Time of Note DATE: 11/05/16 TIME: 11:28 ER Progress Note HPI: 36-year-old man admitted last night for methamphetamine abuse and severe decompensated systolic heart failure with a left ventricular ejection fraction of 20%. Patient has been generally comfortable all morning and sleeping in a sitting position although so far he has had 2 episodes of cardiopulmonary decompensation causing acute tachycardia and hypoxia with diaphoresis. He denies chest pain. Please refer to earlier dictation for full report. Past medical history: hypertension, coronary artery disease, CHF, congenital heart disease status post surgery during childhood, methamphetamine and marijuana abuse, CHF, cardiomyopathy with severe systolic dysfunction with EF of 20% and stage IV diastolic dysfunction, placement of ICD Physical exam: GENERAL: Well-developed, well-nourished, dyspneic, afebrile, diaphoretic HEENT: Moist mucous membranes, pink conjunctiva, no cervical spine tenderness or step-off deformities, no goiter, no jaundice or icterus, extraocular movements intact without pain. No submandibular induration, and no pharyngeal erythema NEURO: Alert and oriented 3, cranial nerves II through XII intact bilaterally, pupils equal round reactive to light, no focal deficits or facial asymmetry, sensation intact distally Strength 5/5 in upper and lower extremities bilaterally CARDIAC: Tachycardic and regular, no murmurs rubs or gallops LUNGS: Crackles at the bases, mild wheezing, no stridor ABDOMEN: Soft nontender, no guarding, no rigidity, no rebound, no psoas sign no obturator sign. Normoactive bowel sounds SKIN: Warm and dry to touch, no abrasions, contusions, or hematomas, no lacerations, no ecchymosis, no target lesions, and without ulcers EXTREMITIES: No clubbing cyanosis or edema, calves are bilaterally symmetrical, no Homans sign, no popliteal cord sign. Distal pulses equal and bilateral PSYCH: Normal affect without agitation or irritability Medical decision making: Initially patient was given albuterol 10 mg via nebulizer and his symptoms improved. His tachycardia resolved. Patient went back to sleep. A few hours later he had another episode of tachycardia, diaphoresis, shortness of breath. Diastolic blood pressure went above 100 mmHg. I treated him here with another dose of furosemide 40 mg IV, nitroglycerin 0.4 mg sublingual 2, and emergent BiPAP therapy. Patient's dyspnea and diaphoresis resolved shortly after BiPAP therapy, patient felt better. Patient's tachycardia and blood pressure improved. EKG performed, read by me revealed a sinus tachycardia 103 bpm, normal axis, with a right bundle branch block, QRS duration 160 ms and a prolonged QT at [address] elevations or depressions noted. Positive PVCs. Cardiac Critical Care: Time: 38 minutes, this was time separate from other billable procedures Treatments/Evaluations: Close monitoring for dangerous arrhythmia and cardiovascular collapse, while treating with advance cardiac medications and techniques. Diagnostic impression: #1) acute decompensated systolic heart failure #2) Acute hypertensive emergency #3) acute respiratory failure #4) Prolonged QT syndrome #5) Methamphetamine abuse WILLIAM PRATER MD Nov 05, 2016 11:35
[2016-11-05] MEDS: ATORVASTATIN 80 MG TAB PO SCH (21:43)
[2016-11-05] MEDS: FUROSEMIDE 40 MG INJ IV SCH (21:44)
[2016-11-06] VITALS (11 sets, daily range): BP systolic 92–109; BP diastolic 56–71; PULSE 88–113; RESP 16–20
[2016-11-06] MEDS: ALBUTEROL/IPRATROPIUM (NEB) 3 ML AMP HHN SCH ×8 (01:26→23:00)
[2016-11-06] MEDS: FUROSEMIDE 40 MG INJ IV SCH ×2 (05:43→18:27)
[2016-11-06] MEDS: LISINOPRIL 5 MG TAB PO SCH (09:57)
[2016-11-06] MEDS: ASPIRIN 81 MG TAB PO SCH (09:57)
[2016-11-06] MEDS: SPIRONOLACTONE 25 MG TAB PO SCH (09:57)
[2016-11-06] MEDS: HEPARIN 5,000 UNIT/0.5 ML VIAL SC SCH ×2 (09:59→20:58)
[2016-11-06 11:15] LABS: CANNABINOIDS Negative (NEGATIVE)
[2016-11-06 11:16] LABS: BARBITURATES Negative (NEGATIVE); BENZODIAZEPINES Negative (NEGATIVE); COCAINE Negative (NEGATIVE); OPIATES Negative (NEGATIVE)
--- NOTE | 2016-11-06 11:36 | PN ---
Date/Time of Note Date/Time of Note DATE: 11/06/16 TIME: 11:32 Assessment/Plan VTE Prophylaxis VTE Prophylaxis Intervention: heparin Lines/Catheters IV Catheter Type (from [facility]): Saline Lock Urinary Cath still in place: No Assessment/Plan Chief Complaint/Hosp Course Assessment and plan: 36-year-old male with a history of hypertension, coronary artery disease, CHF, congenital heart disease status post surgery during childhood, methamphetamine and marijuana abuse, CHF, cardiomyopathy with severe systolic dysfunction with EF of 20% and stage IV diastolic dysfunction, placement of ICD who presented to the emergency department complaining of shortness of breath. 1. Shortness of breath, most likely secondary to congestive heart failure exacerbation-slowly improving. -Continue current cardiac medications, follow-up CV recommendations 2. History of cardiomyopathy with severe systolic dysfunction with ejection fraction of 20% and stage IV diastolic dysfunction, status post implantable cardioverter defibrillator placement. -See #1, continue current cardiac medications. -BiPAP as needed 3. History of congenital heart disease, status post surgery as a child-monitor for now per 4. Hypertension, currently blood pressure within goal -continue current meds 5. Methamphetamine and marijuana abuse -his U tox is again positive for amphetamine. 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 Monitor for signs of intoxication or withdrawal 6. GI prophylaxis: PPI. Problems: Subjective 24 Hr Interval Summary Free Text/Dictation Patient has less shortness of breath this morning. Received BiPAP last night. Exam/Review of Systems Vital Signs Vitals Vital Signs Date Time Temp Pulse Resp B/P Pulse Ox O2 Delivery O2 Flow Rate FiO2 11/06/16 08:40 82 20 99 4.0 11/06/16 08:18 96.6 109/71 11/06/16 03:05 Nasal Cannula 11/05/16 20:32 40 Intake and Output 11/05/16 11/05/16 11/06/16 15:00 23:00 07:00 Intake Total 400 ml 920 ml Output Total 750 ml 1600 ml Balance -750 ml 400 ml -680 ml Exam GENERAL: The patient is lying in bed, presently sleeping, no acute distress HEENT: No obvious head deformity. Pupils are reactive to light. Extraocular muscles intact. CARDIOVASCULAR: Regular rate and rhythm. No extra heart sounds. LUNGS: Clear to auscultation. ABDOMEN: Soft, nontender, nondistended. Positive bowel sounds. EXTREMITIES: No edema. NEUROLOGIC: No focal deficits. Results Result Diagram: 11/05/16 0325 11/05/16 0325 Results 24 hrs Laboratory Tests Test 11/06/16 00:00 11/06/16 01:06 Urine Opiates Screen Negative Urine Barbiturates Negative Urine Amphetamines Screen Positive Urine Benzodiazepines Screen Negative Urine Cocaine Screen Negative Urine Cannabinoids Negative Troponin I 0.026 Medications Medications Current Medications Lorazepam (Ativan) 0.5 mg Q8H PRN PO ANXIETY; Start 11/05/16 at 08:30 Ondansetron HCl (Zofran Inj) 4 mg Q6H PRN IV NAUSEA AND/OR VOMITING; Start at 08:30 Nitroglycerin (Nitroglycerin (Sl Tab) 0.4 Mg) 1 tab Q5M PRN SL CHEST PAIN; Start 11/05/16 at 08:30 Acetaminophen (Tylenol Tab) 650 mg Q6H PRN PO PAIN LEVEL 1-3 OR FEVER; Start at 08:30 Morphine Sulfate (morphine) 2 mg Q4H PRN IV PAIN LEVEL 7-10; Start 11/05/16 at 08:30 Heparin Sodium (Porcine) (Heparin (5000 Units/0.5 ml)) 5,000 unit Q12 SC Last administered on 11/06/16 09:59; Admin Dose 5,000 UNIT; Start 11/05/16 at 09:00 Aspirin (Aspirin) 81 mg DAILY PO Last administered on 11/06/16 09:57; Admin Dose 81 MG; Start 11/05/16 at 09:00 Atorvastatin Calcium (Lipitor) 80 mg QHS PO Last administered on 11/05/16 21: 43; Admin Dose 80 MG; Start 11/05/16 at 21:00 Lisinopril (Zestril) 5 mg DAILY PO Last administered on 11/06/16 09:57; Admin Dose 5 MG; Start 11/05/16 at 09:00 Spironolactone (Aldactone) 25 mg DAILY PO Last administered on 11/06/16 09:57 ; Admin Dose 25 MG; Start 11/05/16 at 09:00 Carvedilol (Coreg) 6.25 mg BID PO Last administered on 11/06/16 09:56; Admin Dose 6.25 MG; Start 11/05/16 at 21:00 HEATH LARKIN Nov 06, 2016 11:36
[2016-11-06 12:16] LABS: ADD SCAN DIFF NO
[2016-11-06 12:19] LABS: BASOPHIL # 0.1 10^3/ul (0.0-0.1); BASOPHILS % 0.6 % (0.0-2.0); EOSINOPHILS % 0.3 % (0.0-7.0); HEMOGLOBIN 17.5 g/dl (14.0-18.0); LYMPHOCYTES # 1.9 10^3/ul (0.8-2.9); LYMPHOCYTES % 16.1 % (15.0-51.0); MEAN CORPUSCULAR HEMOGLOBIN 30.2 pg (29.0-33.0); MEAN CORPUSCULAR HGB CONC 33.7 g/dl (32.0-37.0); MEAN CORPUSCULAR VOLUME 89.8 fl (82.0-101.0); MEAN PLATELET VOLUME 10.5 fl (7.4-10.4); MONOCYTE # 0.7 10^3/ul (0.3-0.9); MONOCYTES % 5.5 % (0.0-11.0); NEUTROPHIL # 9.3 10^3/ul (1.6-7.5); NEUTROPHILS % 77.2 % (39.0-77.0); PLATELET COUNT 292 10^3/UL (140-415); RED BLOOD COUNT 5.79 10^6/ul (4.70-6.10); RED CELL DISTRIBUTION WIDTH 13.7 % (11.5-14.5); WHITE BLOOD COUNT 12.1 10^3/ul (4.8-10.8)
[2016-11-06 12:39] LABS: ALBUMIN 3.5 g/dl (3.3-4.9); ALBUMIN/GLOBULIN RATIO 0.89; BILIRUBIN,INDIRECT 1.4 mg/dl (0-1.1); BILIRUBIN,TOTAL 1.4 mg/dl (0.2-1.3); CALCIUM 9.3 mg/dl (8.4-10.2); CREATININE 0.91 mg/dl (0.61-1.24); MAGNESIUM 1.7 mg/dl (1.7-2.5); POTASSIUM 3.7 mmol/L (3.5-5.1); TOTAL PROTEIN 7.4 g/dl (6.1-8.1)
[2016-11-06 12:50] LABS: CHOL/HDL RATIO 4.6 RATIO
[2016-11-06] MEDS: LORAZEPAM 0.5 MG TAB PO PRN (13:01)
--- NOTE | 2016-11-06 18:12 | CONS ---
Date/Time of Note Date/Time of Note DATE: 11/06/16 TIME: 18:06 Assessment/Plan Assessment/Plan Chief Complaint/Hosp Course IMP: 1.CHF-systolic acute on chronic/trop negatve x 3 this admit 2.cardiomyopathy-EF last 20% 3.HTN 4.Substance abuse with meth 5.H/O congenital heart disease 6.Medical non-compliance Recc: -Tele -serial ecg's -Continue coreg/ACEI -Continue lasix diuresis -Continue statin -Continue asa -start aldactone -Follow volume status closely -digoxin IVP to improve contractility Problems: Consultation Date/Type/Reason Admit Date/Time Nov 05, 2016 at 04:55 Initial Consult Date 11/05/16 Type of Consultation: cardiology Reason for Consultation CHF/cardiomyopathy Referring Provider: HEATH LARKIN Exam/Review of Systems Vital Signs Vitals Vital Signs Date Time Temp Pulse Resp B/P Pulse Ox O2 Delivery O2 Flow Rate FiO2 11/06/16 16:00 88 11/06/16 15:52 97.4 18 109/62 94 11/06/16 14:59 4.0 11/06/16 14:13 Nasal Cannula 11/05/16 20:32 40 Intake and Output 11/05/16 11/05/16 11/06/16 15:00 23:00 07:00 Intake Total 400 ml 920 ml Output Total 750 ml 1600 ml Balance -750 ml 400 ml -680 ml Exam Review of Systems: CONSTITUTIONAL: No fevers, chills. PULMONARY: moderate sob CARDIOVASCULAR: No chest pain/palpitations GASTROINTESTINAL: No nausea/vomiting. GENITOURINARY: No hematuria/dysuria. MUSCULOSKELETAL: No myagias/arthalgias. PSYCHIATRIC: The patient denies depression. NEUROLOGIC: lethargic Constitutional: alert Psych: no complaints Head: normocephalic ENMT: mucosa pink and moist Neck: jvd (9 cm water), supple Respiratory: diminished breath sounds (at bases/B) Cardiovascular: regular rate and rhythm Gastrointestinal: non-tender, soft Musculoskeletal: muscle tone (normal) Extremities: edema (none) Neurological: lethargic Results Result Diagram: 11/06/16 1149 11/06/16 1149 Results 24 hrs Laboratory Tests Test 11/06/16 00:00 11/06/16 01:06 11/06/16 11:49 11/06/16 11:52 Urine Opiates Screen Negative Urine Barbiturates Negative Urine Amphetamines Screen Positive Urine Benzodiazepines Screen Negative Urine Cocaine Screen Negative Urine Cannabinoids Negative Troponin I 0.026 0.022 White Blood Count 12.1 #H Red Blood Count 5.79 Hemoglobin 17.5 Hematocrit 52.0 Mean Corpuscular Volume 89.8 Mean Corpuscular Hemoglobin 30.2 Mean Corpuscular Hemoglobin Concent 33.7 Red Cell Distribution Width 13.7 Platelet Count 292 Mean Platelet Volume 10.5 H Neutrophils % 77.2 H Lymphocytes % 16.1 Monocytes % 5.5 Eosinophils % 0.3 Basophils % 0.6 Neutrophils # 9.3 H Lymphocytes # 1.9 Monocytes # 0.7 Eosinophils # 0.0 Basophils # 0.1 Nucleated Red Blood Cells # 0.0 Sodium Level 138 Potassium Level 3.7 Chloride Level 92 #L Carbon Dioxide Level 32 H Anion Gap 18 H Blood Urea Nitrogen 24 H Creatinine 0.91 Glucose Level 113 Calcium Level 9.3 Phosphorus Level 3.4 Magnesium Level 1.7 Total Bilirubin 1.4 H Direct Bilirubin 0.00 Indirect Bilirubin 1.4 H Aspartate Amino Transf (AST/SGOT) 34 Alanine Aminotransferase (ALT/SGPT) 46 Alkaline Phosphatase 110 Total Protein 7.4 # Albumin 3.5 Globulin 3.90 H Albumin/Globulin Ratio 0.89 Triglycerides Level 74 Cholesterol Level 161 LDL Cholesterol, Calculated 111 HDL Cholesterol 35 Cholesterol/HDL Ratio 4.6 Medications Medications Current Medications Lorazepam (Ativan) 0.5 mg Q8H PRN PO ANXIETY Last administered on 11/06/16t 13: 01; Admin Dose 0.5 MG; Start 11/05/16 at 08:30 Ondansetron HCl (Zofran Inj) 4 mg Q6H PRN IV NAUSEA AND/OR VOMITING; Start at 08:30 Nitroglycerin (Nitroglycerin (Sl Tab) 0.4 Mg) 1 tab Q5M PRN SL CHEST PAIN; Start 11/05/16 at 08:30 Acetaminophen (Tylenol Tab) 650 mg Q6H PRN PO PAIN LEVEL 1-3 OR FEVER; Start at 08:30 Morphine Sulfate (morphine) 2 mg Q4H PRN IV PAIN LEVEL 7-10; Start 11/05/16 at 08:30 Heparin Sodium (Porcine) (Heparin (5000 Units/0.5 ml)) 5,000 unit Q12 SC Last administered on 11/06/16 09:59; Admin Dose 5,000 UNIT; Start 11/05/16 at 09:00 Aspirin (Aspirin) 81 mg DAILY PO Last administered on 11/06/16 09:57; Admin Dose 81 MG; Start 11/05/16 at 09:00 Atorvastatin Calcium (Lipitor) 80 mg QHS PO Last administered on 11/05/16 21: 43; Admin Dose 80 MG; Start 11/05/16 at 21:00 Lisinopril (Zestril) 5 mg DAILY PO Last administered on 11/06/16 09:57; Admin Dose 5 MG; Start 11/05/16 at 09:00 Spironolactone (Aldactone) 25 mg DAILY PO Last administered on 11/06/16 09:57 ; Admin Dose 25 MG; Start 11/05/16 at 09:00 Carvedilol (Coreg) 6.25 mg BID PO Last administered on 11/06/16 09:56; Admin Dose 6.25 MG; Start 11/05/16 at 21:00 Pantoprazole (Protonix Tab) 40 mg DAILY@06 PO ; Start 11/07/16 at 06:00 KEY CASTRO Nov 06, 2016 18:12
[2016-11-06] MEDS ORDERED: DIGOXIN 500 MCG INJ IV ONE (18:30)
[2016-11-06] MEDS: ATORVASTATIN 80 MG TAB PO SCH (20:57)
[2016-11-07] VITALS (12 sets, daily range): BP systolic 101–119; BP diastolic 57–76; PULSE 85–102; RESP 16–20
[2016-11-07] MEDS: ALBUTEROL/IPRATROPIUM (NEB) 3 ML AMP HHN SCH ×8 (00:38→23:00)
[2016-11-07] MEDS: LORAZEPAM 0.5 MG TAB PO PRN ×2 (03:08→22:56)
[2016-11-07] MEDS: PANTOPRAZOLE (EC) 40 MG TAB PO SCH (06:23)
[2016-11-07] MEDS: FUROSEMIDE 40 MG INJ IV SCH ×2 (06:24→20:56)
[2016-11-07] MEDS ORDERED: SPIRONOLACTONE 25 MG TAB PO SCH (09:00)
[2016-11-07] MEDS: ASPIRIN 81 MG TAB PO SCH (09:51)
[2016-11-07] MEDS: SPIRONOLACTONE 25 MG TAB PO SCH (09:52)
[2016-11-07] MEDS: LISINOPRIL 5 MG TAB PO SCH (09:54)
[2016-11-07] MEDS: HEPARIN 5,000 UNIT/0.5 ML VIAL SC SCH ×2 (09:57→20:58)
--- NOTE | 2016-11-07 14:06 | CONS ---
Date/Time of Note Date/Time of Note DATE: 11/07/16 TIME: 14:03 Assessment/Plan Assessment/Plan Additional Assessment/Plan Acute exacerbation of congestive heart failure Cardiomyopathy-EF last 20% HTN Substance abuse with meth H/O congenital heart disease Medical non-compliance Heart failure clinically compensated Avoid Volume Overload Restrict fluids 1500 cc/ 24 hours Continue Coreg Continue Lisinopril Continue Aldactone Consultation Date/Type/Reason Admit Date/Time Nov 05, 2016 at 04:55 Psychological: no complaints Social History Smoking Status: Current every day smoker Exam/Review of Systems Vital Signs Vitals Vital Signs Date Time Temp Pulse Resp B/P Pulse Ox O2 Delivery O2 Flow Rate FiO2 11/07/16 12:15 96 11/07/16 12:12 98.6 20 103/57 98 11/07/16 11:49 Nasal Cannula 4.0 11/05/16 20:32 40 Intake and Output 11/06/16 11/06/16 11/07/16 15:00 23:00 07:00 Intake Total 1280 ml 700 ml Output Total 1800 ml 2100 ml Balance -520 ml -1400 ml Exam Constitutional: alert, oriented Head: atraumatic, normocephalic Neck: non-tender, supple Respiratory: diminished breath sounds Cardiovascular: regular rate and rhythm Gastrointestinal: nl liver, spleen, non-tender, soft Extremities: normal pulses, other (trace pedal edema) Results Result Diagram: 11/06/16 1149 11/06/16 1149 Results 24 hrs Laboratory Tests Test 11/06/16 17:25 Troponin I 0.026 Medications Medications Current Medications Lorazepam (Ativan) 0.5 mg Q8H PRN PO ANXIETY Last administered on 11/07/16t 03: 08; Admin Dose 0.5 MG; Start 11/05/16 at 08:30 Ondansetron HCl (Zofran Inj) 4 mg Q6H PRN IV NAUSEA AND/OR VOMITING; Start at 08:30 Nitroglycerin (Nitroglycerin (Sl Tab) 0.4 Mg) 1 tab Q5M PRN SL CHEST PAIN; Start 11/05/16 at 08:30 Acetaminophen (Tylenol Tab) 650 mg Q6H PRN PO PAIN LEVEL 1-3 OR FEVER; Start at 08:30 Morphine Sulfate (morphine) 2 mg Q4H PRN IV PAIN LEVEL 7-10; Start 11/05/16 at 08:30 Heparin Sodium (Porcine) (Heparin (5000 Units/0.5 ml)) 5,000 unit Q12 SC Last administered on 11/07/16 09:57; Admin Dose 5,000 UNIT; Start 11/05/16 at 09:00 Aspirin (Aspirin) 81 mg DAILY PO Last administered on 11/07/16 09:51; Admin Dose 81 MG; Start 11/05/16 at 09:00 Atorvastatin Calcium (Lipitor) 80 mg QHS PO Last administered on 11/06/16 20: 57; Admin Dose 80 MG; Start 11/05/16 at 21:00 Lisinopril (Zestril) 5 mg DAILY PO Last administered on 11/07/16 09:54; Admin Dose 5 MG; Start 11/05/16 at 09:00 Spironolactone (Aldactone) 25 mg DAILY PO Last administered on 11/07/16 09:52 ; Admin Dose 25 MG; Start 11/05/16 at 09:00 Carvedilol (Coreg) 6.25 mg BID PO Last administered on 11/07/16 09:53; Admin Dose 6.25 MG; Start 11/05/16 at 21:00 Pantoprazole (Protonix Tab) 40 mg DAILY@06 PO Last administered on 11/07/16 06 :23; Admin Dose 40 MG; Start 11/07/16 at 06:00 RAUL SHAY M.D. Nov 07, 2016 14:06
--- NOTE | 2016-11-07 15:23 | PN ---
Date/Time of Note Date/Time of Note DATE: 11/07/16 TIME: 15:21 Assessment/Plan VTE Prophylaxis VTE Prophylaxis Intervention: heparin Lines/Catheters IV [facility] Type (from [facility] Saline Lock Urinary Cath still in place: No Assessment/Plan Chief Complaint/Hosp Course Assessment and plan: 36-year-old male with a history of hypertension, coronary artery disease, CHF, congenital heart disease status post surgery during childhood, methamphetamine and marijuana abuse, CHF, cardiomyopathy with severe systolic dysfunction with EF of 20% and stage IV diastolic dysfunction, placement of ICD who presented to the emergency department complaining of shortness of breath. 1. Shortness of breath, most likely secondary to congestive heart failure exacerbation-slowly improving. -Continue current cardiac medications, started on Aldactone yesterday as well , follow-up CV recommendations 2. History of cardiomyopathy with severe systolic dysfunction with ejection fraction of 20% and stage IV diastolic dysfunction, status post implantable cardioverter defibrillator placement. -See #1, continue current cardiac medications. -BiPAP as needed 3. History of congenital heart disease, status post surgery as a child-monitor for now per 4. Hypertension, currently blood pressure within goal -continue current meds 5. Methamphetamine and marijuana abuse -his U tox is again positive for amphetamine. 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 - Monitor for signs of intoxication or withdrawal 6. GI prophylaxis: PPI. Problems: Subjective 24 Hr Interval Summary Free Text/Dictation No acute events overnight. Seen by cardiology team. Slightly less shortness of breath symptoms. Exam/Review of Systems Vital Signs Vitals Vital Signs Date Time Temp Pulse Resp B/P Pulse Ox O2 Delivery O2 Flow Rate FiO2 11/07/16 12:15 96 11/07/16 12:12 98.6 20 103/57 98 11/07/16 11:49 Nasal Cannula 4.0 11/05/16 20:32 40 Intake and Output 11/06/16 11/06/16 11/07/16 15:00 23:00 07:00 Intake Total 1280 ml 700 ml Output Total 1800 ml 2100 ml Balance -520 ml -1400 ml Exam GENERAL: The patient is lying in bed, presently sleeping, no acute distress HEENT: No obvious head deformity. Pupils are reactive to light. Extraocular muscles intact. CARDIOVASCULAR: Regular rate and rhythm. No extra heart sounds. LUNGS: Clear to auscultation. ABDOMEN: Soft, nontender, nondistended. Positive bowel sounds. EXTREMITIES: No edema. NEUROLOGIC: No focal deficits. Results Result Diagram: 11/06/16 1149 11/06/16 1149 Results 24 hrs Laboratory Tests Test 11/06/16 17:25 Troponin I 0.026 Medications Medications Current Medications Lorazepam (Ativan) 0.5 mg Q8H PRN PO ANXIETY Last administered on 11/07/16 03: 08; Admin Dose 0.5 MG; Start 11/05/16 at 08:30 Ondansetron HCl (Zofran Inj) 4 mg Q6H PRN IV NAUSEA AND/OR VOMITING; Start at 08:30 Nitroglycerin (Nitroglycerin (Sl Tab) 0.4 Mg) 1 tab Q5M PRN SL CHEST PAIN; Start 11/05/16 at 08:30 Acetaminophen (Tylenol Tab) 650 mg Q6H PRN PO PAIN LEVEL 1-3 OR FEVER; Start at 08:30 Morphine Sulfate (morphine) 2 mg Q4H PRN IV PAIN LEVEL 7-10; Start 11/05/16 at 08:30 Heparin Sodium (Porcine) (Heparin (5000 Units/0.5 ml)) 5,000 unit Q12 SC Last administered on 11/07/16 09:57; Admin Dose 5,000 UNIT; Start 11/05/16 at 09:00 Aspirin (Aspirin) 81 mg DAILY PO Last administered on 11/07/16 09:51; Admin Dose 81 MG; Start 11/05/16 at 09:00 Atorvastatin Calcium (Lipitor) 80 mg QHS PO Last administered on 11/06/16 20: 57; Admin Dose 80 MG; Start 11/05/16 at 21:00 Lisinopril (Zestril) 5 mg DAILY PO Last administered on 11/07/16 09:54; Admin Dose 5 MG; Start 11/05/16 at 09:00 Spironolactone (Aldactone) 25 mg DAILY PO Last administered on 11/07/16 09:52 ; Admin Dose 25 MG; Start 11/05/16 at 09:00 Carvedilol (Coreg) 6.25 mg BID PO Last administered on 11/07/16 09:53; Admin Dose 6.25 MG; Start 11/05/16 at 21:00 Pantoprazole (Protonix Tab) 40 mg DAILY@06 PO Last administered on 11/07/16t 06 :23; Admin Dose 40 MG; Start 11/07/16 at 06:00 HEATH LARKIN Nov 07, 2016 15:23
[2016-11-07] MEDS: ATORVASTATIN 80 MG TAB PO SCH (20:56)
[2016-11-08] VITALS (11 sets, daily range): BP systolic 103–123; BP diastolic 56–85; PULSE 94–100; RESP 16–20
[2016-11-08] MEDS: ALBUTEROL/IPRATROPIUM (NEB) 3 ML AMP HHN SCH ×8 (01:59→22:29)
[2016-11-08] MEDS: FUROSEMIDE 40 MG INJ IV SCH ×2 (05:34→18:57)
[2016-11-08] MEDS: PANTOPRAZOLE (EC) 40 MG TAB PO SCH (05:34)
[2016-11-08] MEDS: SPIRONOLACTONE 25 MG TAB PO SCH (09:59)
[2016-11-08] MEDS: ASPIRIN 81 MG TAB PO SCH (09:59)
[2016-11-08] MEDS: HEPARIN 5,000 UNIT/0.5 ML VIAL SC SCH ×2 (10:00→20:59)
[2016-11-08] MEDS: LISINOPRIL 5 MG TAB PO SCH (10:07)
--- NOTE | 2016-11-08 12:02 | PN ---
Date/Time of Note Date/Time of Note DATE: 11/08/16 TIME: 12:01 Assessment/Plan VTE Prophylaxis VTE Prophylaxis Intervention: heparin Lines/Catheters IV [facility]ter Type (from [facility]): Saline Lock Urinary Cath still in place: No Assessment/Plan Chief Complaint/Hosp Course Assessment and plan: 36-year-old male with a history of hypertension, coronary artery disease, CHF, congenital heart disease status post surgery during childhood, methamphetamine and marijuana abuse, CHF, cardiomyopathy with severe systolic dysfunction with EF of 20% and stage IV diastolic dysfunction, placement of ICD who presented to the emergency department complaining of shortness of breath. 1. Shortness of breath, most likely secondary to congestive heart failure exacerbation-slowly improving. -Continue current cardiac medications, started on Aldactone 2 days ago as well, follow-up CV recommendations 2. History of cardiomyopathy with severe systolic dysfunction with ejection fraction of 20% and stage IV diastolic dysfunction, status post implantable cardioverter defibrillator placement. -See #1, continue current cardiac medications. -BiPAP as needed 3. History of congenital heart disease, status post surgery as a child-monitor for now per 4. Hypertension, currently blood pressure within goal -continue current meds 5. Methamphetamine and marijuana abuse -his U tox is again positive for amphetamine. 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 - Monitor for signs of intoxication or withdrawal 6. GI prophylaxis: PPI. 7. Dispo: Likely home in 24-48 hours. Patient is a frequent flyer with poor ejection fraction less than 20%, history of severe cardiomyopathy, drug-induced. Problems: Subjective 24 Hr Interval Summary Free Text/Dictation Patient had some agitation this morning otherwise no acute events overnight Exam/Review of Systems Vital Signs Vitals Vital Signs Date Time Temp Pulse Resp B/P Pulse Ox O2 Delivery O2 Flow Rate FiO2 11/08/16 11:47 98.5 102 19 122/85 100 11/08/16 07:48 21 11/08/16 02:44 2.0 11/07/16 19:45 Nasal Cannula Intake and Output 11/07/16 11/07/16 11/08/16 15:00 23:00 07:00 Intake Total 1200 ml 1000 ml Output Total 2800 ml 1200 ml Balance -1600 ml -200 ml Exam GENERAL: The patient is lying in bed, presently sleeping, no acute distress HEENT: No obvious head deformity. Pupils are reactive to light. Extraocular muscles intact. CARDIOVASCULAR: Regular rate and rhythm. No extra heart sounds. LUNGS: Clear to auscultation. ABDOMEN: Soft, nontender, nondistended. Positive bowel sounds. EXTREMITIES: No edema. NEUROLOGIC: No focal deficits. Results Result Diagram: 11/06/16 1149 11/06/16 1149 Medications Medications Current Medications Lorazepam (Ativan) 0.5 mg Q8H PRN PO ANXIETY Last administered on 11/07/16 22: 56; Admin Dose 0.5 MG; Start 11/05/16 at 08:30 Ondansetron HCl (Zofran Inj) 4 mg Q6H PRN IV NAUSEA AND/OR VOMITING; Start at 08:30 Nitroglycerin (Nitroglycerin (Sl Tab) 0.4 Mg) 1 tab Q5M PRN SL CHEST PAIN; Start 11/05/16 at 08:30 Acetaminophen (Tylenol Tab) 650 mg Q6H PRN PO PAIN LEVEL 1-3 OR FEVER; Start at 08:30 Morphine Sulfate (morphine) 2 mg Q4H PRN IV PAIN LEVEL 7-10; Start 11/05/16 at 08:30 Heparin Sodium (Porcine) (Heparin (5000 Units/0.5 ml)) 5,000 unit Q12 SC Last administered on 11/08/16 10:00; Admin Dose 5,000 UNIT; Start 11/05/16 at 09:00 Aspirin (Aspirin) 81 mg DAILY PO Last administered on 11/08/16 09:59; Admin Dose 81 MG; Start 11/05/16 at 09:00 Atorvastatin Calcium (Lipitor) 80 mg QHS PO Last administered on 11/07/16 20: 56; Admin Dose 80 MG; Start 11/05/16 at 21:00 Lisinopril (Zestril) 5 mg DAILY PO Last administered on 11/08/16 10:07; Admin Dose 5 MG; Start 11/05/16 at 09:00 Spironolactone (Aldactone) 25 mg DAILY PO Last administered on 11/08/16 09:59 ; Admin Dose 25 MG; Start 11/05/16 at 09:00 Carvedilol (Coreg) 6.25 mg BID PO Last administered on 11/07/16 20:56; Admin Dose 6.25 MG; Start 11/05/16 at 21:00 Pantoprazole (Protonix Tab) 40 mg DAILY@06 PO Last administered on 11/08/16t 05 :34; Admin Dose 40 MG; Start 11/07/16 at 06:00 HEATH LARKIN Nov 08, 2016 12:02
[2016-11-08 12:10] LABS: BASOPHIL # 0.1 10^3/ul (0.0-0.1); BASOPHILS % 1.1 % (0.0-2.0); EOSINOPHILS # 0.2 10^3/ul (0.0-0.5); EOSINOPHILS % 2.3 % (0.0-7.0); HEMATOCRIT 53.9 % (42.0-52.0); HEMOGLOBIN 17.6 g/dl (14.0-18.0); LYMPHOCYTES # 2.2 10^3/ul (0.8-2.9); LYMPHOCYTES % 26.5 % (15.0-51.0); MEAN CORPUSCULAR HEMOGLOBIN 29.4 pg (29.0-33.0); MEAN CORPUSCULAR HGB CONC 32.7 g/dl (32.0-37.0); MEAN PLATELET VOLUME 10.4 fl (7.4-10.4); MONOCYTE # 0.8 10^3/ul (0.3-0.9); MONOCYTES % 9.3 % (0.0-11.0); NEUTROPHIL # 5.1 10^3/ul (1.6-7.5); NEUTROPHILS % 60.6 % (39.0-77.0); PLATELET COUNT 293 10^3/UL (140-415); RED BLOOD COUNT 5.99 10^6/ul (4.70-6.10); RED CELL DISTRIBUTION WIDTH 13.9 % (11.5-14.5); WHITE BLOOD COUNT 8.4 10^3/ul (4.8-10.8)
[2016-11-08 12:31] LABS: CREATININE 0.93 mg/dl (0.61-1.24); MAGNESIUM 1.7 mg/dl (1.7-2.5); PHOSPHORUS 3.4 mg/dl (2.5-4.9); POTASSIUM 4.3 mmol/L (3.5-5.1)
--- NOTE | 2016-11-08 13:17 | CONS ---
Date/Time of Note Date/Time of Note DATE: 11/08/16 TIME: 13:16 Assessment/Plan Assessment/Plan Additional Assessment/Plan Acute exacerbation of congestive heart failure Cardiomyopathy-EF last 20% HTN Substance abuse with meth H/O congenital heart disease Medical non-compliance Heart failure clinically compensated Avoid Volume Overload Continue Lasix Restrict fluids 1500 cc/ 24 hours Continue Coreg Continue Lisinopril Continue Aldactone Continue Lipitor Consultation Date/Type/Reason Admit Date/Time Nov 05, 2016 at 04:55 Initial Consult Date Type of Consultation: cardiology Referring Provider: HEATH LARKIN Exam/Review of Systems Vital Signs Vitals Vital Signs Date Time Temp Pulse Resp B/P Pulse Ox O2 Delivery O2 Flow Rate FiO2 11/08/16 12:24 95 11/08/16 11:47 98.5 19 122/85 100 11/08/16 07:48 21 11/08/16 02:44 2.0 11/07/16 19:45 Nasal Cannula Intake and Output 11/07/16 11/07/16 11/08/16 15:00 23:00 07:00 Intake Total 1200 ml 1000 ml Output Total 2800 ml 1200 ml Balance -1600 ml -200 ml Exam Constitutional: alert, oriented Head: atraumatic, normocephalic Neck: non-tender, supple Respiratory: clear to auscultation Cardiovascular: regular rate and rhythm Gastrointestinal: nl liver, spleen, non-tender, soft Extremities: normal pulses Results Result Diagram: 11/08/16 1132 11/08/16 1132 Results 24 hrs Laboratory Tests Test 11/08/16 11:32 White Blood Count 8.4 # Red Blood Count 5.99 Hemoglobin 17.6 Hematocrit 53.9 H Mean Corpuscular Volume 90.0 Mean Corpuscular Hemoglobin 29.4 Mean Corpuscular Hemoglobin Concent 32.7 Red Cell Distribution Width 13.9 Platelet Count 293 Mean Platelet Volume 10.4 Neutrophils % 60.6 Lymphocytes % 26.5 Monocytes % 9.3 Eosinophils % 2.3 Basophils % 1.1 Nucleated Red Blood Cells % 0.0 Neutrophils # 5.1 Lymphocytes # 2.2 Monocytes # 0.8 Eosinophils # 0.2 Basophils # 0.1 Nucleated Red Blood Cells # 0.0 Sodium Level 138 Potassium Level 4.3 Chloride Level 99 Carbon Dioxide Level 28 Anion Gap 15 Blood Urea Nitrogen 27 H Creatinine 0.93 Glucose Level 115 Calcium Level 9.0 Phosphorus Level 3.4 Magnesium Level 1.7 Medications Medications Current Medications Lorazepam (Ativan) 0.5 mg Q8H PRN PO ANXIETY Last administered on 11/07/16 22: 56; Admin Dose 0.5 MG; Start 11/05/16 at 08:30 Ondansetron HCl (Zofran Inj) 4 mg Q6H PRN IV NAUSEA AND/OR VOMITING; Start at 08:30 Nitroglycerin (Nitroglycerin (Sl Tab) 0.4 Mg) 1 tab Q5M PRN SL CHEST PAIN; Start 11/05/16 at 08:30 Acetaminophen (Tylenol Tab) 650 mg Q6H PRN PO PAIN LEVEL 1-3 OR FEVER; Start at 08:30 Morphine Sulfate (morphine) 2 mg Q4H PRN IV PAIN LEVEL 7-10; Start 11/05/16 at 08:30 Heparin Sodium (Porcine) (Heparin (5000 Units/0.5 ml)) 5,000 unit Q12 SC Last administered on 11/08/16 10:00; Admin Dose 5,000 UNIT; Start 11/05/16 at 09:00 Aspirin (Aspirin) 81 mg DAILY PO Last administered on 11/08/16 09:59; Admin Dose 81 MG; Start 11/05/16 at 09:00 Atorvastatin Calcium (Lipitor) 80 mg QHS PO Last administered on 11/07/16 20: 56; Admin Dose 80 MG; Start 11/05/16 at 21:00 Lisinopril (Zestril) 5 mg DAILY PO Last administered on 11/08/16 10:07; Admin Dose 5 MG; Start 11/05/16 at 09:00 Spironolactone (Aldactone) 25 mg DAILY PO Last administered on 11/08/16 09:59 ; Admin Dose 25 MG; Start 11/05/16 at 09:00 Carvedilol (Coreg) 6.25 mg BID PO Last administered on 11/07/16 20:56; Admin Dose 6.25 MG; Start 11/05/16 at 21:00 Pantoprazole (Protonix Tab) 40 mg DAILY@06 PO Last administered on 11/08/16 05 :34; Admin Dose 40 MG; Start 11/07/16 at 06:00 RAUL SHAY M.D. Nov 08, 2016 13:17
[2016-11-08] MEDS: ATORVASTATIN 80 MG TAB PO SCH (20:58)
[2016-11-08] MEDS: LORAZEPAM 0.5 MG TAB PO PRN (21:07)
[2016-11-09 00:12] VITALS: PULSE 96
[2016-11-09 00:39] VITALS: BP 100/61; RESP 16
[2016-11-09] MEDS: ALBUTEROL/IPRATROPIUM (NEB) 3 ML AMP HHN SCH ×3 (01:12→08:00)
[2016-11-09 04:00] VITALS: PULSE 100
[2016-11-09 04:40] VITALS: BP 105/65; RESP 18
[2016-11-09] MEDS: PANTOPRAZOLE (EC) 40 MG TAB PO SCH (06:34)
[2016-11-09] MEDS: FUROSEMIDE 40 MG INJ IV SCH (06:35)
[2016-11-09 07:55] VITALS: BP 127/84; RESP 18
[2016-11-09 08:09] VITALS: PULSE 100
[2016-11-09] MEDS: LISINOPRIL 5 MG TAB PO SCH (09:32)
[2016-11-09] MEDS: ASPIRIN 81 MG TAB PO SCH (09:32)
[2016-11-09] MEDS: SPIRONOLACTONE 25 MG TAB PO SCH (09:32)
[2016-11-09] MEDS: HEPARIN 5,000 UNIT/0.5 ML VIAL SC SCH (09:43)
[2016-11-09 10:15] LABS: BASOPHIL # 0.1 10^3/ul (0.0-0.1); BASOPHILS % 1.2 % (0.0-2.0); EOSINOPHILS # 0.2 10^3/ul (0.0-0.5); EOSINOPHILS % 2.7 % (0.0-7.0); HEMATOCRIT 56.1 % (42.0-52.0); HEMOGLOBIN 18.7 g/dl (14.0-18.0); LYMPHOCYTES # 2.3 10^3/ul (0.8-2.9); LYMPHOCYTES % 27.9 % (15.0-51.0); MEAN CORPUSCULAR HEMOGLOBIN 30.1 pg (29.0-33.0); MEAN CORPUSCULAR HGB CONC 33.3 g/dl (32.0-37.0); MEAN CORPUSCULAR VOLUME 90.2 fl (82.0-101.0); MEAN PLATELET VOLUME 10.5 fl (7.4-10.4); MONOCYTE # 0.5 10^3/ul (0.3-0.9); MONOCYTES % 6.1 % (0.0-11.0); NEUTROPHILS % 61.4 % (39.0-77.0); PLATELET COUNT 307 10^3/UL (140-415); RED BLOOD COUNT 6.22 10^6/ul (4.70-6.10); RED CELL DISTRIBUTION WIDTH 13.5 % (11.5-14.5); WHITE BLOOD COUNT 8.1 10^3/ul (4.8-10.8)
[2016-11-09 10:40] LABS: CALCIUM 9.1 mg/dl (8.4-10.2)
--- NOTE | 2016-11-09 15:54 | DS ---
Date/Time of Note Date/Time of Note DATE: 11/09/16 TIME: 15:54 Discharge Summary Admission/Discharge Info Admit Date/Time Nov 05, 2016 at 04:55 Discharge Date/Time Nov 09, 2016 at 11:25 Patient Condition: Guarded Consults cardiology Hx of Present Illness The patient is a 36-year-old male with a history of hypertension, coronary artery disease, CHF, congenital heart disease status post surgery during childhood, methamphetamine and marijuana abuse, CHF, cardiomyopathy with severe systolic dysfunction with EF of 20% and stage IV diastolic dysfunction, placement of ICD who presented to the emergency department complaining of shortness of breath. The patient had been admitted here multiple times including myself in the past. last admission was a month ago. He was also admitted here about a week prior to last admission after he initially presented with syncope. His syncope was considered vasovagal by cardiology. His ICD was interrogated on 09/22/2016. The patient is now returning back with shortness of breath. He denied any chest pain, any syncopal episode, nausea, vomiting, palpitation. No fever or chills. He does however appear short of breath and diaphoretic. When he presented to the ER, he was tachycardic with a heart rate of 100. Otherwise, the rest of his vitals were stable. Labs show k of 3.3. Otherwise, CBC and CMP are unremarkable. His first troponin is neg and BNP is about 4400. Chest x-ray showed the following; 1. Left-sided AICD device. 2. Status post median sternotomy. 3. Cardiomegaly. 4. Pulmonary vascular congestion. Hospital Course Pt seen by cardiology, started on Aldactone. Advised to stop using methamphetamine. Of note, I was contacted by nurse at ~11am that pt had left the hospital against medical advice. I was notified after pt had already left so I was not able to speak with patient prior to discharge. No rx's printed for patient as he left AMA. Home Meds Active Scripts Albuterol/Ipratropium* (Combivent Respimat*) 20-100 Mcg/Inh - 4 Gm Aer.w.adap, 1 PUFF INHALATION QID, #1 INHALER Prov:EDIL FAJARDO 07/24/16 Furosemide* (Furosemide*) 40 Mg Tablet, 40 MG PO DAILY for 30 Days, TAB Prov:RAHI,HEATH Saenz 05/15/16 Lisinopril* (Lisinopril*) 5 Mg Tablet, 5 MG PO DAILY for 30 Days, TAB Prov:MARINA DELGADO MD 05/05/16 Spironolactone* (Aldactone*) 5 Mg/Ml (COMPOUNDED) Susp, 25 MG PO DAILY for 30 Days Prov:MARINA DELGADO MD 05/05/16 Reported Medications Carvedilol* (Carvedilol*) 12.5 Mg Tablet, 12.5 MG PO BID, #60 TAB 10/05/15 Atorvastatin* (Atorvastatin*) 80 Mg Tablet, 80 MG PO QHS, #30 TAB 10/05/15 Aspirin* (Aspirin* Chew) 81 Mg Tab.chew, 81 MG PO DAILY, TAB.CHEW 10/05/15 Follow-up Plan none as left AMA Primary Care Provider Care Physician No Primary Time spent on discharge: < 30 minutes Pending Labs Laboratory Tests Test 11/09/16 09:41 White Blood Count 8.110^3/ul (4.8-10.8) Red Blood Count 6.2210^6/ul (4.70-6.10) Hemoglobin 18.7g/dl (14.0-18.0) Hematocrit 56.1% (42.0-52.0) Mean Corpuscular Volume 90.2fl (82.0-101.0) Mean Corpuscular Hemoglobin 30.1pg (29.0-33.0) Mean Corpuscular Hemoglobin Concent 33.3g/dl (32.0-37.0) Red Cell Distribution Width 13.5% (11.5-14.5) Platelet Count 46243^3/UL (140-415) Mean Platelet Volume 10.5fl (7.4-10.4) Neutrophils % 61.4% (39.0-77.0) Lymphocytes % 27.9% (15.0-51.0) Monocytes % 6.1% (0.0-11.0) Eosinophils % 2.7% (0.0-7.0) Basophils % 1.2% (0.0-2.0) Nucleated Red Blood Cells % 0.0/100WBC (0.0-0.0) Neutrophils # 5.010^3/ul (1.6-7.5) Lymphocytes # 2.310^3/ul (0.8-2.9) Monocytes # 0.510^3/ul (0.3-0.9) Eosinophils # 0.210^3/ul (0.0-0.5) Basophils # 0.110^3/ul (0.0-0.1) Nucleated Red Blood Cells # 0.010^3/ul (0.0-0.0) Sodium Level 137mmol/L (135-144) Potassium Level 4.0mmol/L (3.5-5.1) Chloride Level 95mmol/L (97-110) Carbon Dioxide Level 27mmol/L (21-31) Anion Gap 19 (8-16) Blood Urea Nitrogen 26mg/dl (7-20) Creatinine 1.00mg/dl (0.61-1.24) Glucose Level 177mg/dl (70-220) Calcium Level 9.1mg/dl (8.4-10.2) EFRA DOMINGUEZ MD Nov 09, 2016 15:54 Creatinine 1.00mg/dl (0.61-1.24) Glucose Level 177mg/dl (70-220) Calcium Level 9.1mg/dl (8.4-10.2) EFRA DOMINGUEZ MD Nov 09, 2016 15:54
== END 2016-11-09 11:25 | disposition left against medical advice (07) | DRG 291 ==
LOC: E/R 02:22 → MS4 04:55
PROVIDERS: ADMIT Internal Medicine; ATTEND Internal Medicine
PROC: 5A09357 Assistance with Respiratory Ventilation, Less than 24 Consecutive Hours, Continuous Positive Airway Pressure (ICD-10-PCS; principal; 2016-11-05)
DX: I11.0 Hypertensive heart disease with heart failure (principal); J96.00 Acute respiratory failure, unspecified whether with hypoxia or hypercapnia; I16.1 Hypertensive emergency; I50.23 Acute on chronic systolic (congestive) heart failure; I42.9 Cardiomyopathy, unspecified; F15.10 Other stimulant abuse, uncomplicated; I45.81 Long QT syndrome; I25.5 Ischemic cardiomyopathy; I25.10 Atherosclerotic heart disease of native coronary artery without angina pectoris; F12.10 Cannabis abuse, uncomplicated; F17.200 Nicotine dependence, unspecified, uncomplicated; Z53.21 Procedure and treatment not carried out due to patient leaving prior to being seen by health care provider; Z79.82 Long term (current) use of aspirin; Z91.14 Patient's other noncompliance with medication regimen; Z95.1 Presence of aortocoronary bypass graft; Z95.810 Presence of automatic (implantable) cardiac defibrillator
CPT/HCPCS: 36415; 71010; 80048; 80053; 80061; 80307; 83605; 83735; 83880; 84100; 84484; 85025; 85610; 85730; 87040; 93005; 94640; 94644; 94660; 94664; 96372; 96374; 96375; 96376; J0456; J0696; J1644; J1940